=== PATIENT | female | born 1955 | race Hispanic/Latino ===

== ENCOUNTER 2017-05-27 15:54 | Inpatient (IN) | payer BC ==
[2017-05-27] MEDS ORDERED: Sodium Chloride 0.9% 1,000 ML IV STA (16:34)
--- NOTE | 2017-05-27 16:43 | ED PDOC ---
Arrival/HPI - General Chief Complaint: Lower Extremity Problem/Injury Time Seen by Provider: 05/27/17 16:12 Historian: Patient - History of Present Illness Narrative History of Present Illness (Text): 05/27/17 16:40 61 yo female, h/o HTN, presents to the ED c/o weight loss x 1 year. She gets intermittent abdominal pain and diarrhea x 1.5 weaks. She is also getting leg swelling b/l x 10 days. No nausea or vomiting. She is eating less and drinking less fluids. Her PMD Dr. Rosen called stating she has not seen her or gotten blood work in some time. No CP or SOB. No dizziness or lightheadedness. PMD: Dr. Rosen Past Medical History - Provider Review Nursing Documentation Reviewed: Yes - Infectious Disease Hx of Infectious Diseases: None - Cardiac Hx Hypertension: Yes - Endocrine/Metabolic Other/Comment: Low blood sugar - Psychiatric Hx Substance Use: No Family/Social History - Physician Review Nursing Documentation Reviewed: Yes Family/Social History: No Known Family HX Smoking Status: Heavy Smoker > 10 Cigarettes Daily Hx Alcohol Use: Yes Frequency of alcohol use: Daily Hx Substance Use: No Allergies/Home Meds Allergies/Adverse Reactions: Allergies No Known Allergies Allergy (Unverified 05/27/17 16:33) Home Medications: Home Meds Medication Instructions Recorded Confirmed Unobtainable 05/27/17 05/27/17 Review of Systems - Physician Review All systems were reviewed & negative as marked: Yes - Review of Systems Constitutional: Normal Eyes: Normal ENT: Normal Respiratory: Normal. absent: SOB Cardiovascular: Normal. absent: Chest Pain Gastrointestinal: Abdominal Pain, Stool Changes, Diarrhea. absent: Nausea, Vomiting Genitourinary Female: Normal Musculoskeletal: Normal Skin: Normal Neurological: Normal Endocrine: Normal Hemo/Lymphatic: Normal Psychiatric: Normal Physical Exam Vital Signs Reviewed: Yes Vital Signs Temp Pulse Resp BP Pulse Ox 05/27/17 17:59 113 H 16 108/59 L 95 05/27/17 16:26 125 H 18 141/78 97 05/27/17 15:55 98.4 F 120 H 16 141/78 96 Temperature: Afebrile Blood Pressure: Normal Pulse: Tachycardic Respiratory Rate: Normal Appearance: Positive for: Well-Appearing, Non-Toxic, Comfortable Pain Distress: None Mental Status: Positive for: Alert and Oriented X 3 - Systems Exam Head: Present: Atraumatic, Normocephalic, Other Pupils: Present: PERRL Extroacular Muscles: Present: EOMI Conjunctiva: Present: Normal Mouth: Present: Moist Mucous Membranes Pharnyx: Present: Normal Neck: Present: Normal Range of Motion Respiratory/Chest: Present: Clear to Auscultation, Good Air Exchange. No: Respiratory Distress, Accessory Muscle Use Cardiovascular: Present: Regular Rate and Rhythm, Normal S1, S2. No: Murmurs Abdomen: Present: Tenderness, Normal Bowel Sounds, Guarding (+RUQ and epigastric ), Mass/Organomegaly (+enlarged liver). No: Distention, Peritoneal Signs Back: Present: Normal Inspection Upper Extremity: Present: Normal Inspection. No: Cyanosis, Edema Lower Extremity: Present: Normal Inspection, Edema (b/l) Neurological: Present: GCS=15, CN II-XII Intact, Speech Normal, Motor Func Grossly Intact, Normal Sensory Function Skin: Present: Warm, Dry, Normal Color. No: Rashes Psychiatric: Present: Alert, Oriented x 3, Normal Insight, Normal Concentration Medical Decision Making ED Course and Treatment: 05/27/17 16:44 61 yo female with h/o HTN with abdominal pain, weight loss and poor PO intake r/ o dehydration r/o abdominal mass r/o liver disease r/o cholecysititis -- Labs -- CXR, EKG -- Abd/Pelv -- IVF -- Reevaluate and disposition 05/27/17 18:[address] Rosen who states that patient wants Dr. Dawson for Cardiology. Case discussed with Dr. Obando who is covering for Dr. Rashid. He agrees to Heparin. Actual weight takes. CT Head and CT Abd/Pelv pending. Dr. Rosen also wanted LE sonos which he will f/u. Case signed out to Dr. Stanley to f/u CT, reeval and admit. - Critical Care Critical Care Minutes: 30 minutes - Lab Interpretations Lab Results: 05/27/17 16:45 05/27/17 16:45 Lab Results 05/27/17 16:45: Alcohol, Quantitative < 10 05/27/17 16:45: Blood Type Pending, Antibody Screen Pending, BBK History Checked No verified bt 05/27/17 16:45: Sodium 129 L, Potassium 3.1 L, Chloride 98, Carbon Dioxide 25, Anion Gap 9 L, BUN 13, Creatinine 0.8, Est GFR ( Amer) > 60, Est GFR (Non -Af Amer) > 60, Random Glucose 99, Calcium 8.1 L, Magnesium 1.7, Total Bilirubin 0.8, AST 49 H, ALT 33, Alkaline Phosphatase 150 H, Lactate Dehydrogenase 579, Total Creatine Kinase < 20 L, Troponin I < 0.01, NT-Pro-B Natriuret Pep 5990 H, Total Protein 6.3, Albumin 2.4 L, Globulin 3.9, Albumin/ Globulin Ratio 0.6 L, Lipase 46 05/27/17 16:45: PT 12.7 H, INR 1.18 H, APTT 30.4 05/27/17 16:45: WBC 11.9 H, RBC 3.73, Hgb 12.8, Hct 37.1, MCV 99.5, MCH 34.3, MCHC 34.5, RDW 13.4, Plt Count 216, MPV 9.4, Gran % 73.1 H, Lymph % (Auto) 18.1 L, [place] % (Auto) 8.2 H, Eos % (Auto) 0.3 L, Baso % (Auto) 0.3, Gran # 8.72 H, Lymph # 2.2, [place] # 1.0 H, Eos # 0.0, Baso # 0.04 - RAD Interpretation Radiology Orders: 05/27/17 16:34 ABD PELVIS PO & IV CONTRAST [CT] Stat 05/27/17 17:11 CXR [CHEST PORTABLE] [RAD] Stat 05/27/17 17:32 HEAD W/O CONTRAST [CT] Stat 05/27/17 17:33 DUPLEX LOWER EXTRM VEIN BILAT [US] Stat - EKG Interpretation Interpreted by ED Physician: Yes (Rapid afib at 121 bpm with TWI in anterior lateral leads) Type: 12 lead EKG - Medication Orders Current Medication Orders: Sodium Chloride (Sodium Chloride 0.9%) 1,000 mls @ 100 mls/hr IV .Q10H STA Stop: 05/28/17 02:33 Last Admin: 05/27/17 17:18 Dose: 100 mls/hr Discontinued Medications Diltiazem HCl (Cardizem) 20 mg IVP STAT STA Stop: 05/27/17 17:46 Famotidine (Pepcid) 20 mg IVP STAT STA Stop: 05/27/17 16:35 Last Admin: 05/27/17 17:18 Dose: 20 mg Iohexol (Omnipaque 240 (50 Ml)) Confirm Administered Dose 50 ml .ROUTE .STK-MED ONE Stop: 05/27/17 17:11 Potassium Chloride (K-Dur 20 Meq Er Tab) 40 meq PO STAT STA Stop: 05/27/17 17:29 Disposition/Present on Arrival - Present on Arrival Any Indicators Present on Arrival: No History of DVT/PE: No History of Uncontrolled Diabetes: No Urinary Catheter: No History of Decub. Ulcer: No History Surgical Site Infection Following: None - Disposition Have Diagnosis and Disposition been Completed?: Yes Diagnosis: New onset atrial fibrillation, Abdominal pain Disposition: HOSPITALIZED Disposition Time: 18:30 Patient Plan: Admission Condition: FAIR
[2017-05-27 16:58] LABS: BASO # 0.04 K/mm3 (0.0-2.0); BASO % 0.3 % (0.0-3.0); EOS % 0.3 % (1.5-5.0); GRAN # 8.72 (1.4-6.5); GRAN % 73.1 % (50.0-68.0); HEMOGLOBIN 12.8 gm/dL (12.0-16.0); LYMPH # 2.2 (1.2-3.4); LYMPH % 18.1 % (22.0-35.0); MEAN CELL VOLUME 99.5 fL (80.0-105.0); MEAN CORPUSCULAR HEMOGLOBIN 34.3 pg (25.0-35.0); MEAN CORPUSCULAR HGB CONC 34.5 g/dl (31.0-37.0); MEAN PLATELET VOLUME 9.4 fl (7.0-11.0); MONO % 8.2 % (1.0-6.0); PLATELET COUNT 216 10^3/uL (120.0-450.0); RBC 3.73 10^6/uL (3.5-6.1); RED CELL DISTRIBUTION WIDTH 13.4 % (11.5-14.5); WHITE BLOOD COUNT 11.9 10^3/ul (4.5-11.0)
[2017-05-27 17:09] LABS: INR 1.18 (0.93-1.08); PARTIAL THROMBOPLASTIN TIME 30.4 Seconds (23.7-30.8); PROTHROMBIN TIME 12.7 Seconds (9.9-11.8)
[2017-05-27] MEDS ORDERED: Iohexol 240 (50 ml) ONE (17:10)
[2017-05-27 17:11] LABS: ALB/GLOB RATIO 0.6 (1.1-1.8); ALBUMIN 2.4 g/dL (3.0-4.8); ALT/SGPT 33 U/L (7-56); AST/SGOT 49 U/L (15-39); BLOOD UREA NITROGEN 13 mg/dL (7-21); CALCIUM 8.1 mg/dL (8.4-10.5); GFR AFRICAN-AMERICAN > 60; GFR NON-AFRICAN AMERICAN > 60; LIPASE 46 U/L (23-300); MAGNESIUM 1.7 mg/dL (1.7-2.2)
[2017-05-27 17:22] LABS: B-TYPE NATRIURETIC PEPTIDE 5990 pg/mL (0-450)
[2017-05-27 17:27] LABS: TROPONIN I < 0.01 ng/mL
[2017-05-27] MEDS ORDERED: Potassium Chloride 20 mEq ER Tab PO STA (17:28)
[2017-05-27] MEDS ORDERED: Iohexol 350 MG/100 ML VIAL ONE (18:41)
--- NOTE | 2017-05-27 20:37 | US ---
HISTORY: Leg pain and swelling. Evaluate for DVT PHYSICIAN(S): Elton Ludwig MD. TECHNIQUE: Duplex sonography and color-flow Doppler with graded compression were used to evaluate the deep venous systems of both lower extremities. The exam is somewhat limited by edema. FINDINGS: The visualized deep venous systems of both lower extremities are sonographically normal and compressible. Normal wave forms and augmentation are seen. There is no sonographic evidence for deep venous thrombosis in the visualized segments of both lower extremities. IMPRESSION: No sonographic evidence for deep venous thrombosis in the visualized segments of both lower extremities.
[2017-05-27 20:40] LABS: T3 UPTAKE 49.3 % (23.0-41.0); T4 7.8 ug/dL (5.5-11.0)
--- NOTE | 2017-05-27 21:28 | CT ---
EXAM: CT Head Without Intravenous Contrast CLINICAL HISTORY: 61 years old, female; Signs and symptoms; Altered mental status/memory loss; Confusion or disorientation; Additional info: Confused R/O ich TECHNIQUE: Axial computed tomography images of the head/brain without intravenous contrast. This CT exam was performed using one or more of the following dose reduction techniques: automated exposure control, adjustment of the mA and/or kV according to patient size, and/or use of iterative reconstruction technique. EXAM DATE/TIME: 05/27/2017 5:32 PM COMPARISON: There are no prior studies for comparison. FINDINGS: Brain: There is prominence of sulci gyri and ventricles. There is no midline shift. There are are no focal masses. There are no focal hemorrhages. Mc-white differentiation is visualized. Ventricles: See above. Bones: Cranial vault is intact. 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 Soft tissues: unremarkable Sinuses: There is no acute sinusitis. Ears and mastoids: Middle ears and mastoids are unremarkable. Orbits: Orbital contents are unremarkable. IMPRESSION: Mild atrophy no acute intracranial abnormality
[2017-05-27] MEDS: Heparin25000 units/250ml 1/2NS 25,000 UNITS/250 ML BAG IV PRN (22:31)
[2017-05-28 00:39] VITALS: BMI 25.2
[2017-05-28 01:34] LABS: TROPONIN I < 0.01 ng/mL
[2017-05-28 05:55] LABS: BLOOD UREA NITROGEN 12 mg/dL (7-21); CALCIUM 7.8 mg/dL (8.4-10.5); GFR AFRICAN-AMERICAN > 60; GFR NON-AFRICAN AMERICAN > 60; HDL CHOLESTEROL 22 mg/dL (29-60); LDL CHOLESTEROL 58 mg/dL (0-129)
[2017-05-28 06:16] LABS: TROPONIN I < 0.01 ng/mL
--- NOTE | 2017-05-28 08:20 | RAD ---
HISTORY: Abdominal pain COMPARISON: No prior. FINDINGS: LUNGS: The lungs are clear. PLEURA: No significant pleural effusion identified, no pneumothorax apparent. CARDIOVASCULAR: Normal. OSSEOUS STRUCTURES: No significant abnormalities. VISUALIZED UPPER ABDOMEN: Normal. OTHER FINDINGS: None. IMPRESSION: No active pulmonary disease.
--- NOTE | 2017-05-28 09:58 | CARD ---
APPROVED REPORT EKG Measurement Heart [id number] <Conclusion> Atrial fibrillation with rapid ventricular response ST & T wave abnormality, consider inferior ischemia or digitalis effect ST & T wave abnormality, consider anterolateral ischemia or digitalis effect Abnormal ECG
--- NOTE | 2017-05-28 10:04 | CT ---
PROCEDURE: CT Abdomen and Pelvis with contrast HISTORY: abd pain r/o cholecystitis r/o obstruction COMPARISON: None. TECHNIQUE: Contrast dose: 100 cc of Omnipaque Radiation dose: Total exam DLP = 596 mGy-cm. This CT exam was performed using one or more of the following dose reduction techniques: Automated exposure control, adjustment of the mA and/or kV according to patient size, and/or use of iterative reconstruction technique. FINDINGS: LOWER THORAX: Unremarkable. LIVER: There is fatty infiltration of the liver. GALLBLADDER AND BILE DUCTS: Mild to moderate distention PANCREAS: Unremarkable. No gross lesion or ductal dilatation. SPLEEN: Unremarkable. ADRENALS: Unremarkable. No mass. KIDNEYS AND URETERS: Nonobstructing right renal stone VASCULATURE: Unremarkable. No aortic aneurysm. BOWEL: Unremarkable. No obstruction. No gross mural thickening. APPENDIX: Normal appendix. PERITONEUM: Mild ascites suspicious for metastatic disease LYMPH NODES: Unremarkable. No enlarged lymph nodes. BLADDER: Unremarkable. REPRODUCTIVE: There is a large heterogeneous solid mass in the right adnexa measuring 12.7 x 15.8 x 9.5 cm consistent with ovarian malignancy. BONES: No acute fracture. OTHER FINDINGS: The report concurs with the preliminary [facility] report IMPRESSION: Large solid mass in the right adnexa consistent with ovarian malignancy. There is also ascites which is suspicious for peritoneal metastases. See comments
[2017-05-28 10:23] LABS: BASO # 0.04 K/mm3 (0.0-2.0); BASO % 0.4 % (0.0-3.0); EOS % 0.2 % (1.5-5.0); GRAN # 7.05 (1.4-6.5); GRAN % 71.1 % (50.0-68.0); HEMOGLOBIN 11.5 gm/dL (12.0-16.0); LYMPH % 20.5 % (22.0-35.0); MEAN CELL VOLUME 101.2 fL (80.0-105.0); MEAN CORPUSCULAR HEMOGLOBIN 34.3 pg (25.0-35.0); MEAN CORPUSCULAR HGB CONC 33.9 g/dl (31.0-37.0); MEAN PLATELET VOLUME 9.9 fl (7.0-11.0); MONO # 0.8 (0.1-0.6); MONO % 7.8 % (1.0-6.0); PLATELET COUNT 181 10^3/uL (120.0-450.0); RBC 3.35 10^6/uL (3.5-6.1); RED CELL DISTRIBUTION WIDTH 13.8 % (11.5-14.5); WHITE BLOOD COUNT 9.9 10^3/ul (4.5-11.0)
--- NOTE | 2017-05-28 10:27 | CP.PCM.PN ---
Subjective - Date & Time of Evaluation Date of Evaluation: 05/28/17 Time of Evaluation: 07:00 - Subjective Subjective: Consultation: Note: The dictation system is down. 61 F with weight loss, diarrhea and failing health and AMS, admitted via the ER yesterday with AF, RVR and ovarian mass on CT. Now in bed on 2R. No CP or SOB. CC incontinence No orthop, PND, syncope, palpitations, dizziness, cough, sputum, hemoptysis. PMH: HBP, Smoker, Daily ETOH, No recent medical F/U. Time of onset of AF is not known. Meds: unknown. ?None All: NKMA SH: . Lives with daughter. + Tobacco and daily wine. FH: not obtainable 10 point ROS otherwise unremarkable PE: V/S noted. AF at ~ 100. Afebrile. 114/70 18 95-98% on RA/N/C Lungs: clear Cor.: irreg, S1S2 Abd.: soft Ext.: no edema Neuro.: alert Psych: Nl mood and affect Skin: warm and dry I/O= 970/500 Labs: WBC= 12,800, H/H = 12.8/37.1, Pl = [id number], trops neg x 3, BNP= 5990, TSH NL. ECG: AF w RVR, STTW changes CXR: NAD CT Head: mild atrophy CT A+P: see ER note: Ovar. mass with mets and ascites, etc. Objective - Vital Signs/Intake and Output Vital Signs (last 24 hours): Temp Pulse Resp BP Pulse Ox 97.5 F L 115 H 20 114/70 98 05/28/17 06:00 05/28/17 06:00 05/28/17 06:00 05/28/17 06:00 05/28/17 06:00 Intake and Output: 05/28/17 05/28/17 06:59 18:59 Intake Total 970 Output Total 500 Balance 470 - Medications Medications: Current Medications Heparin Sodium/Sodium Chloride (Heparin 63165 Units/250ml 1/2 Normal Saline) 25 ,000 units in 250 mls @ 11.333 mls/hr IV .Q22H4M PRN; Protocol; 18 UNITS/KG/HR PRN Reason: ADJUST RATE PER PROTOCOL Last Titration: 05/28/17 05:41 Dose: 15 units/kg/hr, 9.444 mls/hr - Labs Labs: 05/28/17 05:04 PT 12.7 Seconds (9.9-11.8) H 05/27/17 16:45 INR 1.18 (0.93-1.08) H 05/27/17 16:45 APTT 53.1 Seconds (23.7-30.8) H 05/28/17 08:00 Assessment and Plan - Assessment and Plan (Free Text) Assessment: Weight loss/ diarrhea AMS AF with RVR, ? duration Ovarian mass with mets and ascites on CT HBP Smoker Daily ETOH Usage Plan: Tel. Heparin drip by PTTs Metoprolol 25 BID and titrate as needed. 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 Evals. Monitor tel, I/O, labs, PTT's, etc. Will follow.
--- NOTE | 2017-05-28 14:42 | CP.PCM.CON ---
History of Present Illness - History of Present Illness History of Present Illness: Seen and examined earlier today. Chart reviewed. Request for consult is for Ascites HPI: 61 y.o female with history of HTN, Chronic Alcohol intake comes to the ER with compliant of weight loss for over 1 year about 60 pounds, abdominal pain and diarrhea. Came with altered mental status, head ct was negative for bleed and infarct. Patient not cooperative during history taking. Patient denies SOB, CP, N/V. Denies melena or BRBPR. Head Cager hemoptysis and hematemesis. Never had EGD/ Colon. As per patient did not notice her abdomen becoming distended.Denies abdominal pain, or reflux symptoms. Patient had ct scan of abdomen and pelvis reporting large solid mass right adnexa consitnet with ovarian malignancy and ascites. Patient also found to be in Atrial Fibrillation and now on heparin drip per protocol. Ext . doppler done on LE and negative. PMH: HTN, chronic alcohol use PSH: Social hx: (+) smoking, (+) ETOH, denies drugs Allergies: NKDA MEDS: reviewed as per MAR ROS: systems reviewed with positive findings, see hPI Past Patient History - Infectious Disease Hx of Infectious Diseases: None - Past Social History Smoking Status: Light Smoker < 10 Cigarettes Daily - CARDIAC Hx Cardia Arrhythmia: Yes (new onset afib) Hx Hypercholesterolemia: Yes Hx Hypertension: Yes - PULMONARY Hx Respiratory Disorders: No - NEUROLOGICAL Hx Alzheimer's Disease: Yes (early stages) - HEENT Hx HEENT Problems: No - RENAL Hx Chronic Kidney Disease: No - ENDOCRINE/METABOLIC Hx Endocrine Disorders: No Other/Comment: Low blood sugar - HEMATOLOGICAL/ONCOLOGICAL Hx Blood Disorders: No - INTEGUMENTARY Hx Dermatological Problems: No - MUSCULOSKELETAL/RHEUMATOLOGICAL Hx Falls: No Hx Unsteady Gait: Yes (uses cane at home) - GASTROINTESTINAL Other/Comment: diarrhea - GENITOURINARY/GYNECOLOGICAL Hx Genitourinary Disorders: No - PSYCHIATRIC Hx Depression: Yes Hx Substance Use: No Meds Allergies/Adverse Reactions: Allergies Allergy/AdvReac Type Severity Reaction Status Date / Time No Known Allergies Allergy Unverified 05/27/17 16:33 - Medications Medications: Current Medications Heparin Sodium/Sodium Chloride (Heparin 17484 Units/250ml 1/2 Normal Saline) 25 ,000 units in 250 mls @ 11.333 mls/hr IV .Q22H4M PRN; Protocol; 18 UNITS/KG/HR PRN Reason: ADJUST RATE PER PROTOCOL Last Titration: 05/28/17 05:41 Dose: 15 units/kg/hr, 9.444 mls/hr Metoprolol Tartrate (Lopressor) 25 mg PO BID ALF Last Admin: 05/28/17 11:17 Dose: 25 mg Physical Exam - Constitutional Appears: No Acute Distress - Head Exam Head Exam: NORMAL INSPECTION - Eye Exam Eye Exam: Normal appearance, PERRL. absent: Scleral icterus - ENT Exam ENT Exam: Mucous Membranes Moist - Neck Exam Neck exam: Positive for: Normal Inspection - Respiratory Exam Respiratory Exam: Decreased Breath Sounds, Clear to Auscultation Bilateral, NORMAL BREATHING PATTERN. absent: Respiratory Distress - Cardiovascular Exam Cardiovascular Exam: Irregular Rhythm, +S1, +S2 - GI/Abdominal Exam GI & Abdominal Exam: Distended, Normal Bowel Sounds, Soft. absent: Guarding, Organomegaly, Rebound, Tenderness Additional comments: (+) ascites - Extremities Exam Extremities exam: Positive for: pedal edema, pedal pulses present. Negative for : calf tenderness - Neurological Exam Neurological exam: Alert, Oriented x3 - Skin Skin Exam: Dry, Warm Results - Vital Signs Recent Vital Signs: Last Vital Signs Temp 98.7 F 05/28/17 12:00 Pulse 83 05/28/17 12:00 Resp 20 05/28/17 12:00 BP 102/41 L 05/28/17 12:00 Pulse Ox 98 05/28/17 06:00 - Labs Result Diagrams: 05/28/17 08:00 05/28/17 05:04 Labs: Laboratory Results - last 24 hr 05/27/17 05/28/17 05/28/17 20:01 00:57 05:04 WBC RBC Hgb Hct MCV MCH MCHC RDW Plt Count MPV Gran % Lymph % (Auto) [place] % (Auto) Eos % (Auto) Baso % (Auto) Gran # Lymph # [place] # Eos # Baso # APTT Sodium 132 Potassium 3.8 Chloride 101 Carbon Dioxide 27 Anion Gap 8 L BUN 12 Creatinine 0.7 Est GFR ( Amer) > 60 Est GFR (Non-Af Amer) > 60 Random Glucose 76 Calcium 7.8 L Lactate Dehydrogenase 526 518 Total Creatine Kinase < 20 L < 20 L Troponin I < 0.01 < 0.01 Triglycerides 83 Cholesterol 96 L LDL Cholesterol Direct 58 HDL Cholesterol 22 L Thyroxine (T4) 7.8 T3 Uptake 49.3 H TSH 3rd Generation 2.62 05/28/17 05/28/17 05/28/17 05:04 08:00 08:00 WBC 9.9 RBC 3.35 L Hgb 11.5 L Hct 33.9 L MCV 101.2 MCH 34.3 MCHC 33.9 RDW 13.8 Plt Count 181 MPV 9.9 Gran % 71.1 H Lymph % (Auto) 20.5 L [place] % (Auto) 7.8 H Eos % (Auto) 0.2 L Baso % (Auto) 0.4 Gran # 7.05 H Lymph # 2.0 [place] # 0.8 H Eos # 0.0 Baso # 0.04 APTT 135.8 H* 53.1 H Sodium Potassium Chloride Carbon Dioxide Anion Gap BUN Creatinine Est GFR ( Amer) Est GFR (Non-Af Amer) Random Glucose Calcium Lactate Dehydrogenase Total Creatine Kinase Troponin I Triglycerides Cholesterol LDL Cholesterol Direct HDL Cholesterol Thyroxine (T4) T3 Uptake TSH 3rd Generation Assessment & Plan - Assessment and Plan (Free Text) Assessment: ASSESSMENT: Abnormal ct scan: large sold mass right adnexa, ? Ovarian mass Ascites malignant VS Cirrhosis Chronic ETOH Weight loss Atrial Fibrillation HTN PLAN: Request eval for paracentesis with cytology labs on Heparin drip per protocol continue GI prophylaxsis [facility] eval monitor H/H may benefit from GI workup when optimal Thank you for this consult and for allowing us to participate in your patient care, will make further recommendation based upon clinical course. Seen and discussed with Dr. Argueta.
--- NOTE | 2017-05-28 17:32 | CP.PCM.CON ---
History of Present Illness - History of Present Illness History of Present Illness: NEURO CONSULT NOTE: 05/28/17 CHIEF COMPLAINT: NEW ONSET CONFUSION HPI: 61 YEAR OLD WOMAN WITH PMH OF HTN, ALCOHOL ABUSE, AND WEIGHT LOSS OF 60 LBS IN 1 YEAR, WITH H/O OF RECENT DIARRHEA AND ABDOMINAL PAIN AND WAS FOUND TO HAVE NEW ONSET CONFUSION, WITH NEW ONSET A-FIB WITH RVR ON HEPARIN PER CARDIAC PROTOCOL. PT CT HEAD SHOWED MILD ATROPHY AND NO ACUTE INTRACRANIAL ABNORMALITY. PT INITIALLY HAD HYPONATREMIA, HYPOKALEMIA WHICH IS BEING CORRECTED. PT MOVES ALL EXTREMITIES AND FOLLOWS SIMPLE COMMANDS. CEA IS ELEVATED AT 11.1. GI ONBOARD FOR EVALUATION OF ASCITES. ROS: 14 POINT REVIEW OF SYMPTOMS IS NEGATIVE PER HPI. ALLERGIES: NONE SOCIAL HISTORY: NO ILLICIT DRUG USE, POSITIVE SMOKING, DAILY ETOH USE. FAMILY: NON CONTRIBUTORY. MEDICATIONS: REVIEWED BY NURSE'S RECONCILIATION SHEET. PAST MEDICAL HISTORY:HTN, ALCOHOL ABUSE PHYSICAL EXAM: VITAL SIGNS: REVIEWED BY THE CHART GENERAL EXAM: PATIENT SEEN IN BED, IN NO ACUTE DISTRESS MORBIDLY OBESE. HEENT: PERRLA, EOMI, NECK SUPPLE, NO JVD, NO ADENOPATHY CVS: S1, S2, RRR, NO MURMURS NOTED LUNGS: CLEAR TO AUSCULTATION, NO ADVENTITIOUS SOUNDS ABDOMEN: DISTENDED, BS PRESENT. EXTREMITIES: NO CLUBBING OR CYANOSIS. PP 2+ B/L HAS B/L PEDAL EDEMA NEURO: PT IS ALERT AND ORIENTED TO PERSON, PLACE, AND YEAR. POOR ATTENTION SPAN , SLOW THOUGHT PROCESS, RECALL TO 5 MINUTES 0/3, SPEECH IS FLUENT WITHOUT ERRORS, CN II-XII INTACT, MOTOR EXAM: NORMAL TONE, NORMAL BULK OF MUSCLE, MOVES ALL EXTREMITIES EQUALLY, NO PRONATOR DRIFT SEEN. SENSORY EXAM: DECREASEDLIGHT TOUCH, PIN PRICK UP TO CALVES B/L, PROPRIOCEPTION , DECREASED VIBRATION AT TOES AND KNEES. DEEP TENDON REFLEXES: 2+ THROUGHOUT EXCEPT 1 AT THE ANKLES. COORDINATION: FINGER TO NOSE IS INTACT. HEEL TO RAY IS INTACT GAIT: DEFERRED FOR NOW. LABS: REVIEWED BY THE CHART. ASSESSMENT AND PLAN: 61 YEAR OLD WOMAN WITH PMH OF HTN, ALCOHOL ABUSE, AND WEIGHT LOSS OF 60 LBS IN 1 YEAR, WITH H/O OF RECENT DIARRHEA AND ABDOMINAL PAIN AND WAS FOUND TO HAVE NEW ONSET CONFUSION, WITH NEW ONSET A-FIB WITH RVR ON HEPARIN PER CARDIAC PROTOCOL. PT CT HEAD SHOWED MILD ATROPHY AND NO ACUTE INTRACRANIAL ABNORMALITY. PT INITIALLY HAD HYPONATREMIA, HYPOKALEMIA WHICH IS BEING CORRECTED. PT MOVES ALL EXTREMITIES AND FOLLOWS SIMPLE COMMANDS. CEA IS ELEVATED AT 11.1. GI ONBOARD FOR EVALUATION OF ASCITES. NEW ONSET CONFUSION LIKELY SECONMDARY TO TRANSIENT CONFUSIONAL STATE FROM UNDERLYING INITIAL ELECTROLYTE DERANGEMENTS, TRANSIENT HYPOPERFUSION TO THE BRAIN, AND A-FIB RVR. PLAN: 1.ASA 81 MG FOR STROKE PREVENTION 2. MONITOR ELECTROLYTES AND CORRECT ACCORDINGLY. 3. MRI OF BRAIN TO ASSESS FOR ANY INTRACRANIAL ABNORMALITIES GIVEN OVARIAN MASS 4. AVOID SEDATING MEDICATIONS.\ 5. DELIRIUM PRECAUTIONS. 6. GENTLE HYDRATION. 7. FOLLOW UP WITH GI FOR ASCITES AND ONCOLOGY FOR OVARIAN MASS. 8. F/U WITH CARDIOLOGY RECOMMENDATION FOR A-FIB. THANK YOU Ilya OLVERA MD Past Patient History - Infectious Disease Hx of Infectious Diseases: None - Past Social History Smoking Status: Light Smoker < 10 Cigarettes Daily - CARDIAC Hx Cardia Arrhythmia: Yes (new onset afib) Hx Hypercholesterolemia: Yes Hx Hypertension: Yes - PULMONARY Hx Respiratory Disorders: No - NEUROLOGICAL Hx Alzheimer's Disease: Yes (early stages) - HEENT Hx HEENT Problems: No - RENAL Hx Chronic Kidney Disease: No - ENDOCRINE/METABOLIC Hx Endocrine Disorders: No Other/Comment: Low blood sugar - HEMATOLOGICAL/ONCOLOGICAL Hx Blood Disorders: No - INTEGUMENTARY Hx Dermatological Problems: No - MUSCULOSKELETAL/RHEUMATOLOGICAL Hx Falls: No Hx Unsteady Gait: Yes (uses cane at home) - GASTROINTESTINAL Other/Comment: diarrhea - GENITOURINARY/GYNECOLOGICAL Hx Genitourinary Disorders: No - PSYCHIATRIC Hx Depression: Yes Hx Substance Use: No Meds Allergies/Adverse Reactions: Allergies Allergy/AdvReac Type Severity Reaction Status Date / Time No Known Allergies Allergy Unverified 05/27/17 16:33 - Medications Medications: Current Medications Famotidine (Pepcid) 20 mg PO 1000,2200 [facility] Heparin Sodium/Sodium Chloride (Heparin 92389 Units/250ml 1/2 Normal Saline) 25 ,000 units in 250 mls @ 11.333 mls/hr IV .Q22H4M PRN; Protocol; 18 UNITS/KG/HR PRN Reason: ADJUST RATE PER PROTOCOL Last Titration: 05/28/17 05:41 Dose: 15 units/kg/hr, 9.444 mls/hr Metoprolol Tartrate (Lopressor) 25 mg PO BID COUNT INCLUDES THE [facility] Last Admin: 05/28/17 11:17 Dose: 25 mg Results - Vital Signs Recent Vital Signs: Last Vital Signs Temp 98.7 F 05/28/17 12:00 Pulse 93 H 05/28/17 14:00 Resp 20 05/28/17 12:00 BP 102/41 L 05/28/17 12:00 Pulse Ox 98 05/28/17 06:00 - Labs Result Diagrams: 05/28/17 08:00 05/28/17 05:04 Labs: Laboratory Results - last 24 hr 05/27/17 05/28/17 05/28/17 20:01 00:57 05:04 WBC RBC Hgb Hct MCV MCH MCHC RDW Plt Count MPV Gran % Lymph % (Auto) Chaves % (Auto) Eos % (Auto) Baso % (Auto) Gran # Lymph # Chaves # Eos # Baso # APTT Sodium 132 Potassium 3.8 Chloride 101 Carbon Dioxide 27 Anion Gap 8 L BUN 12 Creatinine 0.7 Est GFR ( Amer) > 60 Est GFR (Non-Af Amer) > 60 Random Glucose 76 Calcium 7.8 L Lactate Dehydrogenase 526 518 Total Creatine Kinase < 20 L < 20 L Troponin I < 0.01 < 0.01 Triglycerides 83 Cholesterol 96 L LDL Cholesterol Direct 58 HDL Cholesterol 22 L Carcinoembryonic Ag Thyroxine (T4) 7.8 T3 Uptake 49.3 H TSH 3rd Generation 2.62 05/28/17 05/28/17 05/28/17 05:04 08:00 08:00 WBC 9.9 RBC 3.35 L Hgb 11.5 L Hct 33.9 L MCV 101.2 MCH 34.3 MCHC 33.9 RDW 13.8 Plt Count 181 MPV 9.9 Gran % 71.1 H Lymph % (Auto) 20.5 L Chaves % (Auto) 7.8 H Eos % (Auto) 0.2 L Baso % (Auto) 0.4 Gran # 7.05 H Lymph # 2.0 Chaves # 0.8 H Eos # 0.0 Baso # 0.04 APTT 135.8 H* 53.1 H Sodium Potassium Chloride Carbon Dioxide Anion Gap BUN Creatinine Est GFR ( Amer) Est GFR (Non-Af Amer) Random Glucose Calcium Lactate Dehydrogenase Total Creatine Kinase Troponin I Triglycerides Cholesterol LDL Cholesterol Direct HDL Cholesterol Carcinoembryonic Ag Thyroxine (T4) T3 Uptake TSH 3rd Generation 05/28/17 05/28/17 15:45 15:45 WBC RBC Hgb Hct MCV MCH MCHC RDW Plt Count MPV Gran % Lymph % (Auto) Chaves % (Auto) Eos % (Auto) Baso % (Auto) Gran # Lymph # Chaves # Eos # Baso # APTT 54.8 H Sodium Potassium Chloride Carbon Dioxide Anion Gap BUN Creatinine Est GFR ( Amer) Est GFR (Non-Af Amer) Random Glucose Calcium Lactate Dehydrogenase Total Creatine Kinase Troponin I Triglycerides Cholesterol LDL Cholesterol Direct HDL Cholesterol Carcinoembryonic Ag 11.1 H Thyroxine (T4) T3 Uptake TSH 3rd Generation
[2017-05-29] MEDS: Heparin25000 units/250ml 1/2NS 25,000 UNITS/250 ML BAG IV PRN (04:54)
[2017-05-29 07:07] LABS: HEMOGLOBIN 12.5 gm/dL (12.0-16.0); MEAN CELL VOLUME 99.2 fL (80.0-105.0); MEAN CORPUSCULAR HEMOGLOBIN 33.6 pg (25.0-35.0); MEAN CORPUSCULAR HGB CONC 33.9 g/dl (31.0-37.0); MEAN PLATELET VOLUME 9.6 fl (7.0-11.0); RBC 3.72 10^6/uL (3.5-6.1); RED CELL DISTRIBUTION WIDTH 13.6 % (11.5-14.5); WHITE BLOOD COUNT 11.4 10^3/ul (4.5-11.0)
--- NOTE | 2017-05-29 07:57 | CARD ---
APPROVED REPORT EXAM: Two-dimensional and M-mode echocardiogram with Doppler and color Doppler. INDICATION Atrial Fibrillation 2D DIMENSIONS Left Atrium (2D)4.7 (1.6-4.0cm)IVSd1.1 (0.7-1.1cm) LVDd4.5 (3.9-5.9cm)PWd1.1 (0.7-1.1cm) LVDs2.9 (2.5-4.0cm)FS (%) 34.7 % LVEF (%)64.1 (>50%) M-Mode DIMENSIONS Aortic Root2.70 (2.2-3.7cm)Aortic Cusp Exc.1.70 (1.5-2.0cm) Aortic Valve AoV Peak Irpryvcv226.0cm/Tom Peak GR.8mmHg Mitral Valve E/A ratio0.0 TDI E/Lateral E'0.0E/Medial E'0.0 Tricuspid Valve TR Peak [id number] [id number] Peak Gr.24mmHg [id number] LEFT VENTRICLE The left ventricle is normal size. There is normal left ventricular wall thickness. The left ventricular function is normal. The left ventricular ejection fraction is within the normal range. There is normal LV segmental wall motion. RIGHT VENTRICLE The right ventricle is normal size. The right ventricular systolic function is normal. ATRIA The left atrium is moderately dilated. The right atrium is mildly dilated. The interatrial septum is intact with no evidence for an atrial septal defect. AORTIC VALVE The aortic valve is moderately sclerotic. No aortic regurgitation is present. There is no aortic valvular stenosis. MITRAL VALVE Mitral annular calcification is mild. Mitral regurgitation is mild. TRICUSPID VALVE The tricuspid valve is normal in structure. There is mild tricuspid regurgitation. PULMONIC VALVE The pulmonary valve is normal in structure. GREAT VESSELS The aortic root is normal in size. The IVC is normal in size and collapses >50% with inspiration. PERICARDIAL EFFUSION There is no pleural effusion. There is no pericardial effusion. <Conclusion> Biatrial enlargement. Normal LV size and systolic function. Mild MR. Mild TR.
--- NOTE | 2017-05-29 09:30 | CP.PCM.PN ---
Subjective - Date & Time of Evaluation Date of Evaluation: 05/29/17 Time of Evaluation: 07:50 - Subjective Subjective: S&E at bedside this am, no acute overnight events reported. Was incontinent of stool last night, no reports of overt GI bleed. Remains on heparin drip. Objective - Vital Signs/Intake and Output Vital Signs (last 24 hours): Temp Pulse Resp BP Pulse Ox 98 F 98 H 20 120/80 98 05/29/17 06:00 05/29/17 06:00 05/29/17 06:00 05/29/17 06:00 05/29/17 06:00 Intake and Output: 05/29/17 05/29/17 06:59 18:59 Intake Total 430 60 Balance 430 60 - Medications Medications: Current Medications Famotidine (Pepcid) 20 mg PO 1000,2200 ON LICENSE OF [facility] Last Admin: 05/29/17 09:11 Dose: 20 mg Heparin Sodium/Sodium Chloride (Heparin 47786 Units/250ml 1/2 Normal Saline) 25 ,000 units in 250 mls @ 11.333 mls/hr IV .Q22H4M PRN; Protocol; 18 UNITS/KG/HR PRN Reason: ADJUST RATE PER PROTOCOL Last Titration: 05/29/17 07:49 Dose: 13 units/kg/hr, 8.185 mls/hr Metoprolol Tartrate (Lopressor) 25 mg PO BID ON LICENSE OF [facility] Last Admin: 05/29/17 09:11 Dose: 25 mg - Labs Labs: 05/29/17 06:30 05/28/17 05:04 PT 12.7 Seconds (9.9-11.8) H 05/27/17 16:45 INR 1.18 (0.93-1.08) H 05/27/17 16:45 APTT 83.5 Seconds (23.7-30.8) H* 05/29/17 06:30 - Constitutional Appears: No Acute Distress - Eye Exam Eye Exam: Normal appearance. absent: Scleral icterus - ENT Exam ENT Exam: Mucous Membranes Moist - Neck Exam Neck Exam: Normal Inspection - Respiratory Exam Respiratory Exam: Decreased Breath Sounds (no wheeze), Rhonchi, NORMAL BREATHING PATTERN. absent: Respiratory Distress - Cardiovascular Exam Cardiovascular Exam: Irregular Rhythm, +S1, +S2 - GI/Abdominal Exam GI & Abdominal Exam: Distended, Soft, Normal Bowel Sounds. absent: Guarding, Tenderness, Rebound - Extremities Exam Extremities Exam: Pedal Edema (bilateral LE). absent: Calf Tenderness - Neurological Exam Neurological Exam: Alert, Awake, Oriented x3 - Skin Skin Exam: Dry, Warm Assessment and Plan - Assessment and Plan (Free Text) Assessment: ASSESSMENT: Abnormal ct scan: large sold mass right adnexa, ? Ovarian mass Ascites malignant VS Cirrhosis AMS Chronic ETOH Weight loss Atrial Fibrillation HTN PLAN: on Heparin drip per protocol continue GI prophylaxsis BALL ENDER eval, oncology FU monitor H/H pending MRI brain may benefit from GI workup when optimal, r/o varices discuss with Dr. Rosen regarding eval for paracentesis, will hold off for now, will undergo behavioral health associate/oncology eval. Seen and discussed with Dr. Argueta.
--- NOTE | 2017-05-29 10:13 | CARD ---
APPROVED REPORT EKG Measurement Heart [id number] <Conclusion> Atrial fibrillation with rapid ventricular response Low voltage QRS ST & T wave abnormality, consider anterolateral ischemia or digitalis effect Abnormal ECG
--- NOTE | 2017-05-29 11:28 | CP.PCM.PN ---
Subjective - Date & Time of Evaluation Date of Evaluation: 05/29/17 Time of Evaluation: 09:05 - Subjective Subjective: Seen for followup. Lying in bed on telemetry. Heart rate remains moderately increased. Echocardiogram revealed normal LV size and systolic function with biatrial enlargement. Mild mitral and tricuspid regurgitation were seen. Awaits gynecologic evaluation. Objective - Vital Signs/Intake and Output Vital Signs (last 24 hours): Temp Pulse Resp BP Pulse Ox 98 F 98 H 20 120/80 98 05/29/17 06:00 05/29/17 06:00 05/29/17 06:00 05/29/17 06:00 05/29/17 06:00 Intake and Output: 05/29/17 05/29/17 06:59 18:59 Intake Total 430 60 Balance 430 60 - Medications Medications: Current Medications Famotidine (Pepcid) 20 mg PO 1000,2200 [facility] Last Admin: 05/29/17 09:11 Dose: 20 mg Heparin Sodium/Sodium Chloride (Heparin 75965 Units/250ml 1/2 Normal Saline) 25 ,000 units in 250 mls @ 11.333 mls/hr IV .Q22H4M PRN; Protocol; 18 UNITS/KG/HR PRN Reason: ADJUST RATE PER PROTOCOL Last Titration: 05/29/17 07:49 Dose: 13 units/kg/hr, 8.185 mls/hr Metoprolol Tartrate (Lopressor) 25 mg PO BID [facility] Last Admin: 05/29/17 09:11 Dose: 25 mg - Labs Labs: 05/29/17 06:30 05/28/17 05:04 PT 12.7 Seconds (9.9-11.8) H 05/27/17 16:45 INR 1.18 (0.93-1.08) H 05/27/17 16:45 APTT 83.5 Seconds (23.7-30.8) H* 05/29/17 06:30 - Constitutional Appears: Chronically Ill - Eye Exam Eye Exam: Normal appearance - Neck Exam Neck Exam: Normal Inspection - Respiratory Exam Respiratory Exam: Rhonchi - Cardiovascular Exam Cardiovascular Exam: Irregular Rhythm Additional comments: Soft systolic murmur present at the left sternal border - GI/Abdominal Exam GI & Abdominal Exam: Distended Additional comments: Bowel sounds present. Hepatosplenomegaly noted - Neurological Exam Neurological Exam: Alert, Oriented x3 - Psychiatric Exam Psychiatric exam: Anxious, Flat Affect Assessment and Plan (1) Cirrhosis Assessment & Plan: Workup in progress. Likely secondary to alcoholic liver disease Status: Acute (2) Ovarian mass, right Assessment & Plan: Highly suspicious for malignancy. Status: Acute (3) New onset atrial fibrillation Assessment & Plan: Inadequate rate control at present. Will increase beta xiao dose. Continue anticoagulation for now. Will need to determine appropriateness of long-term anticoagulation based upon her medical problems. Status: Acute - Assessment and Plan (Free Text) Plan: Increase metoprolol dose. Await gynecologic evaluation and GI input. Continue heparin for now. Will need eventual chronic anticoagulation unless contraindication exists.
--- NOTE | 2017-05-29 17:09 | CP.PCM.PCO ---
Physician Communication Note - Physician Communication Note Physician Communication Note: C/W PRESENT MX. MRI PENDING. RECONSULT IF ABNORMAL
--- NOTE | 2017-05-30 06:08 | CP.PCM.PN ---
Subjective - Date & Time of Evaluation Date of Evaluation: 05/30/17 Time of Evaluation: 06:07 - Subjective Subjective: Patient was seen at bedside. She was asleep, I woke her up. She was seen because her heart rate had been in the 130's. She complained of constipation.When I asked, how many days? She said she did not remember. As per nursing staff, she has had diarrhoea. HR in 130's Discussed with . Placed a call to ,awaiting call back. Objective - Vital Signs/Intake and Output Vital Signs (last 24 hours): Temp Pulse Resp BP Pulse Ox 98.4 F 111 H 18 110/62 95 05/30/17 00:01 05/30/17 04:44 05/30/17 00:01 05/30/17 00:01 05/30/17 00:01 Intake and Output: 05/29/17 05/30/17 18:59 06:59 Intake Total 110 Balance 110 - Medications Medications: Current Medications Famotidine (Pepcid) 20 mg PO 1000,2200 [facility] Last Admin: 05/29/17 22:01 Dose: 20 mg Heparin Sodium/Sodium Chloride (Heparin 47915 Units/250ml 1/2 Normal Saline) 25 ,000 units in 250 mls @ 11.333 mls/hr IV .Q22H4M PRN; Protocol; 18 UNITS/KG/HR PRN Reason: ADJUST RATE PER PROTOCOL Last Titration: 05/29/17 15:02 Dose: 13 units/kg/hr, 8.185 mls/hr Metoprolol Tartrate (Lopressor) 25 mg PO BID [facility] Last Admin: 05/29/17 17:47 Dose: 25 mg - Labs Labs: 05/29/17 06:30 05/28/17 05:04 PT 12.7 Seconds (9.9-11.8) H 05/27/17 16:45 INR 1.18 (0.93-1.08) H 05/27/17 16:45 APTT 62.5 Seconds (23.7-30.8) H 05/29/17 20:01 - Constitutional Appears: Well, No Acute Distress - Head Exam Head Exam: ATRAUMATIC, NORMAL INSPECTION, NORMOCEPHALIC - Eye Exam Eye Exam: Normal appearance - ENT Exam ENT Exam: Normal External Ear Exam - Neck Exam Neck Exam: Normal Inspection - Respiratory Exam Respiratory Exam: Clear to Ausculation Bilateral, NORMAL BREATHING PATTERN. absent: Rales, Rhonchi, Wheezes, Respiratory Distress, Stridor - Cardiovascular Exam Cardiovascular Exam: Tachycardia, Irregular Rhythm. absent: JVD - GI/Abdominal Exam GI & Abdominal Exam: absent: Distended - Rectal Exam Rectal Exam: Deferred - Exam Additional comments: Deferred. - Extremities Exam Extremities Exam: Normal Inspection - Back Exam Back Exam: NORMAL INSPECTION - Neurological Exam Neurological Exam: Alert, Awake - Psychiatric Exam Psychiatric exam: Normal Affect, Normal Mood - Skin Skin Exam: Normal Color Assessment and Plan - Assessment and Plan (Free Text) Assessment: Atrial fibrillation with RVR. HTN. Ovarian mass. AMS. Cirrhosis. Smoker. ETOH user. Plan: Lopressor 25 mg po now instead of at scheduled time later this morning. Spoke with who asked me to call . A call was placed to , later on I spoke to him when he was on the floor. Continue present management.
[2017-05-30 06:11] LABS: BASO # 0.05 K/mm3 (0.0-2.0); BASO % 0.4 % (0.0-3.0); EOS % 0.1 % (1.5-5.0); GRAN % 70.8 % (50.0-68.0); HEMOGLOBIN 12.7 gm/dL (12.0-16.0); LYMPH # 2.5 (1.2-3.4); LYMPH % 20.3 % (22.0-35.0); MEAN CELL VOLUME 99.7 fL (80.0-105.0); MEAN CORPUSCULAR HEMOGLOBIN 34.2 pg (25.0-35.0); MEAN CORPUSCULAR HGB CONC 34.3 g/dl (31.0-37.0); MEAN PLATELET VOLUME 9.8 fl (7.0-11.0); MONO % 8.4 % (1.0-6.0); PLATELET COUNT 198 10^3/uL (120.0-450.0); RBC 3.71 10^6/uL (3.5-6.1); RED CELL DISTRIBUTION WIDTH 13.8 % (11.5-14.5); WHITE BLOOD COUNT 12.4 10^3/ul (4.5-11.0)
[2017-05-30 06:24] LABS: ALB/GLOB RATIO 0.6 (1.1-1.8); ALBUMIN 2.2 g/dL (3.0-4.8); ALT/SGPT 29 U/L (7-56); AST/SGOT 41 U/L (15-39); BLOOD UREA NITROGEN 17 mg/dL (7-21); CALCIUM 8.1 mg/dL (8.4-10.5); GFR AFRICAN-AMERICAN > 60; GFR NON-AFRICAN AMERICAN > 60
--- NOTE | 2017-05-30 09:00 | CP.PCM.PN ---
Subjective - Date & Time of Evaluation Date of Evaluation: 05/30/17 Time of Evaluation: 07:00 - Subjective Subjective: Stable on 2R. AF with rapid VR last night. V/S noted. AF, mod. VR PE: Lungs: clear Cor.: irreg S1S2 Abd.: soft Ext.: no edema' Neuro.: alert Echo: Nl LV, Mild MR and TR Labs noted: PTT= 55 Objective - Vital Signs/Intake and Output Vital Signs (last 24 hours): Temp Pulse Resp BP Pulse Ox 99.2 F 130 H 18 119/75 99 05/30/17 06:00 05/30/17 06:13 05/30/17 06:00 05/30/17 06:13 05/30/17 06:00 Intake and Output: 05/30/17 05/30/17 06:59 18:59 Intake Total 0 Balance 0 - Medications Medications: Current Medications Famotidine (Pepcid) 20 mg PO 1000,2200 [facility] Last Admin: 05/29/17 22:01 Dose: 20 mg Heparin Sodium/Sodium Chloride (Heparin 49710 Units/250ml 1/2 Normal Saline) 25 ,000 units in 250 mls @ 11.333 mls/hr IV .Q22H4M PRN; Protocol; 18 UNITS/KG/HR PRN Reason: ADJUST RATE PER PROTOCOL Last Titration: 05/29/17 15:02 Dose: 13 units/kg/hr, 8.185 mls/hr Metoprolol Tartrate (Lopressor) 50 mg PO BID [facility] - Labs Labs: 05/30/17 05:20 05/30/17 05:20 PT 12.7 Seconds (9.9-11.8) H 05/27/17 16:45 INR 1.18 (0.93-1.08) H 05/27/17 16:45 APTT 55.0 Seconds (23.7-30.8) H 05/30/17 05:20 Assessment and Plan - Assessment and Plan (Free Text) Assessment: Weight loss/ diarrhea AMS AF with RVR, ? duration Ovarian mass with mets and ascites on CT Cirrhosis HBP Smoker Daily ETOH Usage Plan: Tel. Heparin drip by PTTs Increase metoprolol to 50 BID and titrate as needed. BOW REHAIRER/GI/Neuro. Evals. Monitor tel, I/O, labs, PTT's, etc. Will follow.
[2017-05-30] MEDS ORDERED: Gadodiamide 287 MG/ML VIAL (15ML) IV ONE (17:04)
--- NOTE | 2017-05-30 17:45 | CP.PCM.PN ---
Subjective - Date & Time of Evaluation Date of Evaluation: 05/30/17 Time of Evaluation: 16:00 - Subjective Subjective: NEURO PROGRESS NOTE: 05/30/17 CHIEF COMPLAINT: NEW ONSET CONFUSION SUBJECTIVE: 61 YEAR OLD WOMAN WITH PMH OF HTN, ALCOHOL ABUSE, AND WEIGHT LOSS OF 60 LBS IN 1 YEAR, WITH H/O OF RECENT DIARRHEA AND ABDOMINAL PAIN AND WAS FOUND TO HAVE NEW ONSET CONFUSION, WITH NEW ONSET A-FIB WITH RVR ON HEPARIN PER CARDIAC PROTOCOL. PT CT HEAD SHOWED MILD ATROPHY AND NO ACUTE INTRACRANIAL ABNORMALITY. PT INITIALLY HAD HYPONATREMIA, HYPOKALEMIA WHICH IS BEING CORRECTED. PT MOVES ALL EXTREMITIES AND FOLLOWS SIMPLE COMMANDS. CEA IS ELEVATED AT 11.1. GI ONBOARD FOR EVALUATION OF ASCITES. TALKED TO THE DAUGHTER AT BEDSIDE WHO MENTIONS THAT SHE IS FORGETFUL IN TERMS OF SHORT TERM MEMORY AT HOME, AND REPETITIVE IN CONVERSATIONS AND HAS POOR ATTENTION SPAN AND SLOW THOUIGHT PROCESS. MRI BRAIN PENDING. PT WILL GET TODAY. PT HAD EPISODES OF FLUCTUATING DELIRIUM DURING HER HOSPITAL COURSE. ROS: 14 POINT REVIEW OF SYMPTOMS IS NEGATIVE PER HPI. ALLERGIES: NONE SOCIAL HISTORY: NO ILLICIT DRUG USE, POSITIVE SMOKING, DAILY ETOH USE. FAMILY: NON CONTRIBUTORY. MEDICATIONS: REVIEWED BY NURSE'S RECONCILIATION SHEET. PAST MEDICAL HISTORY:HTN, ALCOHOL ABUSE PHYSICAL EXAM: VITAL SIGNS: REVIEWED BY THE CHART GENERAL EXAM: PATIENT SEEN IN BED, IN NO ACUTE DISTRESS MORBIDLY OBESE. HEENT: PERRLA, EOMI, NECK SUPPLE, NO JVD, NO ADENOPATHY CVS: S1, S2, RRR, NO MURMURS NOTED LUNGS: CLEAR TO AUSCULTATION, NO ADVENTITIOUS SOUNDS ABDOMEN: DISTENDED, BS PRESENT. EXTREMITIES: NO CLUBBING OR CYANOSIS. PP 2+ B/L HAS B/L PEDAL EDEMA NEURO: PT IS ALERT AND ORIENTED TO PERSON, PLACE, AND YEAR. POOR ATTENTION SPAN , SLOW THOUGHT PROCESS, RECALL TO 5 MINUTES 0/3, SPEECH IS FLUENT WITHOUT ERRORS, CN II-XII INTACT, MOTOR EXAM: NORMAL TONE, NORMAL BULK OF MUSCLE, MOVES ALL EXTREMITIES EQUALLY, NO PRONATOR DRIFT SEEN. SENSORY EXAM: DECREASEDLIGHT TOUCH, PIN PRICK UP TO CALVES B/L, PROPRIOCEPTION , DECREASED VIBRATION AT TOES AND KNEES. DEEP TENDON REFLEXES: 2+ THROUGHOUT EXCEPT 1 AT THE ANKLES. COORDINATION: FINGER TO NOSE IS INTACT. HEEL TO RAY IS INTACT GAIT: DEFERRED FOR NOW. LABS: REVIEWED BY THE CHART. ASSESSMENT AND PLAN: 61 YEAR OLD WOMAN WITH PMH OF HTN, ALCOHOL ABUSE, AND WEIGHT LOSS OF 60 LBS IN 1 YEAR, WITH H/O OF RECENT DIARRHEA AND ABDOMINAL PAIN AND WAS FOUND TO HAVE NEW ONSET CONFUSION, WITH NEW ONSET A-FIB WITH RVR ON HEPARIN PER CARDIAC PROTOCOL. PT CT HEAD SHOWED MILD ATROPHY AND NO ACUTE INTRACRANIAL ABNORMALITY. PT INITIALLY HAD HYPONATREMIA, HYPOKALEMIA WHICH IS BEING CORRECTED. PT MOVES ALL EXTREMITIES AND FOLLOWS SIMPLE COMMANDS. CEA IS ELEVATED AT 11.1. GI ONBOARD FOR EVALUATION OF ASCITES. NEW ONSET CONFUSION LIKELY SECONDARY TO TRANSIENT CONFUSIONAL STATE FROM UNDERLYING INITIAL ELECTROLYTE DERANGEMENTS, TRANSIENT HYPOPERFUSION TO THE BRAIN, AND A-FIB RVR. SHE HAS A BASELINE MODERATE COGNITIVE IMPAIRMENT. HER FLUCTUATING CONFUSION IN THE HOSPITAL IS SECONDARY TO TRANSIENT DELIRIUM DUE TO UNFAMILIAR ENVIRONMENT WHICH IS NOT UNCOMMON. PLAN: 1.ASA 81 MG FOR STROKE PREVENTION 2. MONITOR ELECTROLYTES AND CORRECT ACCORDINGLY. 3. MRI OF BRAIN TO ASSESS FOR ANY INTRACRANIAL ABNORMALITIES GIVEN OVARIAN MASS WHICH IS CURRENTLY PENDING. 4. AVOID SEDATING MEDICATIONS. 5. DELIRIUM PRECAUTIONS. 6. GENTLE HYDRATION. 7. FOLLOW UP WITH GI FOR ASCITES AND ONCOLOGY FOR OVARIAN MASS. 8. F/U WITH CARDIOLOGY RECOMMENDATION FOR A-FIB. 9. WILL RECOMMEND TO BE ON NAMENDA 14MG XR, CO Q 10 400MG DAILY AND ALPHA LIPOIC ACID 600MG DAILY AN OUTPATIENT FOR COGNITIVE IMPAIRMENT 10. EXPLAINED TO DAUGHTER AND PATIENT THE NEED FOR DAILY ATTENTION AND CONCENTRATION EXERCISES,. THANK YOU Ilya OLVERA MD Objective - Vital Signs/Intake and Output Vital Signs (last 24 hours): Temp Pulse Resp BP Pulse Ox 97.2 F L 86 18 112/65 99 05/30/17 12:00 05/30/17 12:00 05/30/17 12:00 05/30/17 12:00 05/30/17 06:00 Intake and Output: 05/30/17 05/30/17 06:59 18:59 Intake Total 540 Balance 540 - Medications Medications: Current Medications Famotidine (Pepcid) 20 mg PO 1000,2200 [facility] Last Admin: 05/30/17 09:36 Dose: 20 mg Heparin Sodium/Sodium Chloride (Heparin 22002 Units/250ml 1/2 Normal Saline) 25 ,000 units in 250 mls @ 11.333 mls/hr IV .Q22H4M PRN; Protocol; 18 UNITS/KG/HR PRN Reason: ADJUST RATE PER PROTOCOL Last Titration: 05/29/17 15:02 Dose: 13 units/kg/hr, 8.185 mls/hr Metoprolol Tartrate (Lopressor) 50 mg PO BID [facility] Last Admin: 05/30/17 09:36 Dose: 50 mg - Labs Labs: 05/30/17 05:20 05/30/17 05:20 PT 12.7 Seconds (9.9-11.8) H 05/27/17 16:45 INR 1.18 (0.93-1.08) H 05/27/17 16:45 APTT 55.0 Seconds (23.7-30.8) H 05/30/17 05:20
--- NOTE | 2017-05-30 18:18 | MRI ---
EXAM: MR Head Without and With Intravenous Contrast CLINICAL HISTORY: The patient age is 61 years old and is female; Signs and symptoms; Altered mental status/memory loss; Additional info: AMS. Patient very confused. Limited study patient moving a lot Facility exam id and description: Mri br cs brain w wo contrast TECHNIQUE: Magnetic resonance images of the head/brain without and with intravenous contrast in multiple planes. CONTRAST: 15 mL of OMNISCAN administered intravenously. EXAM DATE/TIME: 05/30/2017 4:30 PM COMPARISON: CT - HEAD W/O CONTRAST 05/27/2017 7:54:36 PM FINDINGS: Artifacts: Motion artifact limits this study. Brain: There is no restricted diffusion within the brain to suggest acute ischemic change. There are periventricular foci of high FLAIR signal intensity within the cerebral white matter. There is no mass effect or restricted diffusion associated with these foci. In a patient this age, this likely represents chronic small vessel ischemic disease. There is prominence of the ventricles and sulci, compatible with atrophy. FLAIR hyperintense gliosis is visualized within the right occipital lobe, without restricted diffusion or abnormal enhancement. Chronic ischemic change is considered. No abnormally enhancing intracranial mass is visualized. Ventricles: See above. Bones/joints: No acute abnormality. Sinuses: Unremarkable as visualized. No acute sinusitis. Mastoid air cells: No mastoid effusion. Orbits: No acute abnormality, as visualized. IMPRESSION: 1. There is no restricted diffusion within the brain to suggest acute ischemic change. 2. There are periventricular foci of high FLAIR signal intensity within the cerebral white matter. In a patient this age, this likely represents chronic small vessel ischemic disease. 3. Atrophy. 4. Nonspecific gliosis is visualized within the right occipital lobe. Chronic ischemic change is considered.
--- NOTE | 2017-05-30 20:52 | CP.PCM.CON ---
History of Present Illness - History of Present Illness History of Present Illness: CHANGE OF MENTAL STATUS Review of Systems - Review of Systems Systems not reviewed;Unavailable: Altered Mental Status - Constitutional Constitutional: Lethargy Past Patient History - Infectious Disease Hx of Infectious Diseases: None - Past Medical History & Family History Past Medical History?: Yes - Past Social History Smoking Status: Light Smoker < 10 Cigarettes Daily Alcohol: > 2 Drinks/Day - CARDIAC Hx Cardia Arrhythmia: Yes (new onset afib) Hx Hypercholesterolemia: Yes Hx Hypertension: Yes - PULMONARY Hx Respiratory Disorders: No - NEUROLOGICAL Hx Alzheimer's Disease: Yes (early stages) - HEENT Hx HEENT Problems: No - RENAL Hx Chronic Kidney Disease: No - ENDOCRINE/METABOLIC Hx Endocrine Disorders: No Other/Comment: Low blood sugar - HEMATOLOGICAL/ONCOLOGICAL Hx Blood Disorders: No - INTEGUMENTARY Hx Dermatological Problems: No - MUSCULOSKELETAL/RHEUMATOLOGICAL Hx Falls: No Hx Unsteady Gait: Yes (uses cane at home) - GASTROINTESTINAL Other/Comment: diarrhea - GENITOURINARY/GYNECOLOGICAL Hx Genitourinary Disorders: No - PSYCHIATRIC Hx Depression: Yes Hx Substance Use: No Meds Allergies/Adverse Reactions: Allergies Allergy/AdvReac Type Severity Reaction Status Date / Time No Known Allergies Allergy Unverified 05/27/17 16:33 - Medications Medications: Current Medications Famotidine (Pepcid) 20 mg PO 1000,2200 [facility] Last Admin: 05/30/17 09:36 Dose: 20 mg Heparin Sodium/Sodium Chloride (Heparin 82157 Units/250ml 1/2 Normal Saline) 25 ,000 units in 250 mls @ 11.333 mls/hr IV .Q22H4M PRN; Protocol; 18 UNITS/KG/HR PRN Reason: ADJUST RATE PER PROTOCOL Last Titration: 05/29/17 15:02 Dose: 13 units/kg/hr, 8.185 mls/hr Acyclovir 500 mg/ Sodium (Chloride) 100 mls @ 100 mls/hr IV Q8 ALF PRN Reason: Protocol Stop: 06/08/17 22:01 Metoprolol Tartrate (Lopressor) 50 mg PO BID [facility] Last Admin: 05/30/17 18:29 Dose: 50 mg Physical Exam - Constitutional Appears: Unkempt, Older Than Stated Age, Confused, Chronically Ill - Head Exam Head Exam: NORMAL INSPECTION - Eye Exam Eye Exam: EOMI, Normal appearance, PERRL - ENT Exam ENT Exam: Mucous Membranes Moist, Normal Exam - Neck Exam Neck exam: Positive for: Normal Inspection - Respiratory Exam Respiratory Exam: Clear to Auscultation Bilateral, NORMAL BREATHING PATTERN - Cardiovascular Exam Cardiovascular Exam: REGULAR RHYTHM - GI/Abdominal Exam GI & Abdominal Exam: Normal Bowel Sounds, Soft. absent: Tenderness - Rectal Exam Rectal Exam: NORMAL INSPECTION - Exam Exam: Circumcision, NORMAL INSPECTION External exam: NORMAL EXTERNAL EXAM Speculum exam: NORMAL SPECULUM EXAM Bimanual exam: NORMAL BIMANUAL EXAM - Back Exam Back exam: NORMAL INSPECTION - Neurological Exam Neurological exam: Altered - Skin Skin Exam: Dry, Intact, Normal Color, Warm Results - Vital Signs Recent Vital Signs: Last Vital Signs Temp 97.5 F L 05/30/17 18:00 Pulse 94 H 05/30/17 18:00 Resp 18 05/30/17 18:00 BP 120/80 05/30/17 18:00 Pulse Ox 99 05/30/17 06:00 - Labs Result Diagrams: 05/30/17 05:20 05/30/17 05:20 Labs: Laboratory Results - last 24 hr 05/29/17 05/29/17 05/30/17 14:28 20:01 05:20 WBC 12.4 H RBC 3.71 Hgb 12.7 Hct 37.0 MCV 99.7 MCH 34.2 MCHC 34.3 RDW 13.8 Plt Count 198 MPV 9.8 Gran % 70.8 H Lymph % (Auto) 20.3 L [place] % (Auto) 8.4 H Eos % (Auto) 0.1 L Baso % (Auto) 0.4 Gran # 8.80 H Lymph # 2.5 [place] # 1.0 H Eos # 0.0 Baso # 0.05 APTT 62.5 H Sodium Potassium Chloride Carbon Dioxide Anion Gap BUN Creatinine Est GFR ( Amer) Est GFR (Non-Af Amer) Random Glucose Calcium Total Bilirubin AST ALT Alkaline Phosphatase Total Protein Albumin Globulin Albumin/Globulin Ratio CA 125 Antigen 1240 H 05/30/17 05/30/17 05:20 05:20 WBC RBC Hgb Hct MCV MCH MCHC RDW Plt Count MPV Gran % Lymph % (Auto) [place] % (Auto) Eos % (Auto) Baso % (Auto) Gran # Lymph # [place] # Eos # Baso # APTT 55.0 H Sodium 134 Potassium 4.0 Chloride 102 Carbon Dioxide 26 Anion Gap 10 BUN 17 Creatinine 0.8 Est GFR ( Amer) > 60 Est GFR (Non-Af Amer) > 60 Random Glucose 73 Calcium 8.1 L Total Bilirubin 0.7 AST 41 H ALT 29 Alkaline Phosphatase 133 Total Protein 5.9 Albumin 2.2 L Globulin 3.8 Albumin/Globulin Ratio 0.6 L CA 125 Antigen - Impressions Impression: SIRS CHANGE OF MENTAL STATUS OVARIAN MASS R/O NMDA O-QATLZS-Z-ASPARTIC ACID RECEPTOR ANTIBODY Assessment & Plan (1) Encephalitis Status: Acute (2) SIRS (systemic inflammatory response syndrome) Status: Acute (3) 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
[2017-05-30] MEDS: Acyclovir 500 MG in Sodium Chloride 0.9% 100 ML IV SCH (22:23)
[2017-05-31] MEDS: Piperacillin/Tazobact 3.375 gm 100 ML IVPB SCH ×5 (01:30→23:53)
[2017-05-31] MEDS: Acyclovir 500 MG in Sodium Chloride 0.9% 100 ML IV SCH ×3 (06:54→21:51)
[2017-05-31 07:50] LABS: BASO # 0.02 K/mm3 (0.0-2.0); BASO % 0.2 % (0.0-3.0); EOS % 0.2 % (1.5-5.0); GRAN # 8.19 (1.4-6.5); GRAN % 69.4 % (50.0-68.0); LYMPH # 2.5 (1.2-3.4); LYMPH % 20.8 % (22.0-35.0); MEAN CORPUSCULAR HEMOGLOBIN 34.3 pg (25.0-35.0); MEAN CORPUSCULAR HGB CONC 34.3 g/dl (31.0-37.0); MEAN PLATELET VOLUME 10.5 fl (7.0-11.0); MONO # 1.1 (0.1-0.6); MONO % 9.4 % (1.0-6.0); PLATELET COUNT 169 10^3/uL (120.0-450.0); WHITE BLOOD COUNT 11.8 10^3/ul (4.5-11.0)
[2017-05-31 08:07] LABS: BLOOD UREA NITROGEN 20 mg/dL (7-21); CALCIUM 8.3 mg/dL (8.4-10.5); GFR AFRICAN-AMERICAN > 60; GFR NON-AFRICAN AMERICAN > 60
[2017-05-31] MEDS ORDERED: Potassium Chloride 20 mEq ER Tab PO ONE (08:59)
--- NOTE | 2017-05-31 09:54 | CP.PCM.PN ---
Subjective - Date & Time of Evaluation Date of Evaluation: 05/31/17 Time of Evaluation: 06:30 - Subjective Subjective: better awake and oriented to person not to place and time Objective - Vital Signs/Intake and Output Vital Signs (last 24 hours): Temp Pulse Resp BP Pulse Ox 97.8 F 104 H 20 109/74 97 05/31/17 06:00 05/31/17 06:00 05/31/17 06:00 05/31/17 06:00 05/31/17 06:00 Intake and Output: 05/31/17 05/31/17 06:59 18:59 Intake Total 616 Balance 616 - Medications Medications: Current Medications Famotidine (Pepcid) 20 mg PO 1000,2200 [facility] Last Admin: 05/30/17 22:24 Dose: 20 mg Heparin Sodium/Sodium Chloride (Heparin 14385 Units/250ml 1/2 Normal Saline) 25 ,000 units in 250 mls @ 11.333 mls/hr IV .Q22H4M PRN; Protocol; 18 UNITS/KG/HR PRN Reason: ADJUST RATE PER PROTOCOL Last Titration: 05/29/17 15:02 Dose: 13 units/kg/hr, 8.185 mls/hr Acyclovir 500 mg/ Sodium (Chloride) 100 mls @ 100 mls/hr IV Q8 ALF PRN Reason: Protocol Stop: 06/08/17 22:01 Last Admin: 05/31/17 06:54 Dose: 100 mls/hr Piperacillin Sod/Tazobactam Sod (Zosyn 3.375 In Ns 100ml) 100 mls @ 200 mls/hr IVPB Q6 ALF PRN Reason: Protocol Stop: 06/09/17 00:01 Last Admin: 05/31/17 06:06 Dose: 200 mls/hr Metoprolol Tartrate (Lopressor) 50 mg PO BID [facility] Last Admin: 05/30/17 18:29 Dose: 50 mg - Labs Labs: 05/31/17 06:30 05/31/17 06:30 PT 12.7 Seconds (9.9-11.8) H 05/27/17 16:45 INR 1.18 (0.93-1.08) H 05/27/17 16:45 APTT 55.0 Seconds (23.7-30.8) H 05/30/17 05:20 - Constitutional Appears: Well - Head Exam Head Exam: ATRAUMATIC, NORMAL INSPECTION, NORMOCEPHALIC - Eye Exam Eye Exam: EOMI, Normal appearance, PERRL Pupil Exam: NORMAL ACCOMODATION, PERRL - ENT Exam ENT Exam: Mucous Membranes Moist, Normal Exam - Neck Exam Neck Exam: Full ROM, Normal Inspection. absent: Lymphadenopathy - Respiratory Exam Respiratory Exam: Clear to Ausculation Bilateral, NORMAL BREATHING PATTERN - Cardiovascular Exam Cardiovascular Exam: REGULAR RHYTHM, +S1, +S2. absent: Murmur - GI/Abdominal Exam GI & Abdominal Exam: Soft, Normal Bowel Sounds. absent: Tenderness - Rectal Exam Rectal Exam: NORMAL INSPECTION - Exam Exam: Circumcision, NORMAL INSPECTION External exam: NORMAL EXTERNAL EXAM Speculum exam: NORMAL SPECULUM EXAM Bimanual exam: NORMAL BIMANUAL EXAM - Extremities Exam Extremities Exam: Full ROM, Normal Capillary Refill, Normal Inspection. absent : Joint Swelling, Pedal Edema - Back Exam Back Exam: NORMAL INSPECTION - Neurological Exam Neurological Exam: Alert, Awake, CN II-XII Intact, Normal Gait, Oriented x3 - Psychiatric Exam Psychiatric exam: Normal Affect, Normal Mood - Skin Skin Exam: Dry, Intact, Normal Color, Warm Assessment and Plan (1) Encephalitis Status: Acute (2) SIRS (systemic inflammatory response syndrome) Status: Acute (3) Brca-K-njslhj-D-aspartate (NMDA) receptor encephalitis Status: Acute (4) Ascites due to alcoholic cirrhosis Status: Acute - Assessment and Plan (Free Text) Plan: LP ASCITIC FLUID EVAA PRESENT ABX
--- NOTE | 2017-05-31 13:00 | CP.PCM.PN ---
Subjective - Date & Time of Evaluation Date of Evaluation: 05/31/17 Time of Evaluation: 09:50 - Subjective Subjective: NEURO PROGRESS NOTE: 05/31/17 CHIEF COMPLAINT: F/U FOR NEW ONSET CONFUSION SUBJECTIVE: 61 YEAR OLD WOMAN WITH PMH OF HTN, ALCOHOL ABUSE, AND WEIGHT LOSS OF 60 LBS IN 1 YEAR, WITH H/O OF RECENT DIARRHEA AND ABDOMINAL PAIN AND WAS FOUND TO HAVE NEW ONSET CONFUSION, WITH NEW ONSET A-FIB WITH RVR ON HEPARIN PER CARDIAC PROTOCOL. PT CT HEAD SHOWED MILD ATROPHY AND NO ACUTE INTRACRANIAL ABNORMALITY. PT INITIALLY HAD HYPONATREMIA, HYPOKALEMIA WHICH IS BEING CORRECTED. PT MOVES ALL EXTREMITIES AND FOLLOWS SIMPLE COMMANDS. CEA IS ELEVATED AT 11.1. GI ONBOARD FOR EVALUATION OF ASCITES. TALKED TO THE DAUGHTER AT BEDSIDE WHO MENTIONS THAT SHE IS FORGETFUL IN TERMS OF SHORT TERM MEMORY AT HOME, AND REPETITIVE IN CONVERSATIONS AND HAS POOR ATTENTION SPAN AND SLOW THOUIGHT PROCESS. MRI BRAIN PENDING. PT WILL GET TODAY. PT HAD EPISODES OF FLUCTUATING DELIRIUM DURING HER HOSPITAL COURSE. MRI BRAIN REVIEWED SHOWED NO ACUTE ABNORMALITIES, JUST CHRONIC ISCHEMIC CHANGES , NO FEATURES OF ENCEPHALITIS. THIS IS NOT NMDA ENCEPHALITIS, GIVEN NO FOCAL NEUROLOGICAL EVENTS, NO SEIZURES , NO APHASIA OR FOCAL MOTOR ABNORMALITIES. 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 ROS: 14 POINT REVIEW OF SYMPTOMS IS NEGATIVE PER HPI. ALLERGIES: NONE SOCIAL HISTORY: NO ILLICIT DRUG USE, POSITIVE SMOKING, DAILY ETOH USE. FAMILY: NON CONTRIBUTORY. MEDICATIONS: REVIEWED BY NURSE'S RECONCILIATION SHEET. PAST MEDICAL HISTORY:HTN, ALCOHOL ABUSE PHYSICAL EXAM: VITAL SIGNS: REVIEWED BY THE CHART GENERAL EXAM: PATIENT SEEN IN BED, IN NO ACUTE DISTRESS MORBIDLY OBESE. HEENT: PERRLA, EOMI, NECK SUPPLE, NO JVD, NO ADENOPATHY CVS: S1, S2, RRR, NO MURMURS NOTED LUNGS: CLEAR TO AUSCULTATION, NO ADVENTITIOUS SOUNDS ABDOMEN: DISTENDED, BS PRESENT. EXTREMITIES: NO CLUBBING OR CYANOSIS. PP 2+ B/L HAS B/L PEDAL EDEMA NEURO: PT IS ALERT AND ORIENTED TO PERSON, PLACE, AND YEAR. POOR ATTENTION SPAN , SLOW THOUGHT PROCESS, RECALL TO 5 MINUTES 0/3, SPEECH IS FLUENT WITHOUT ERRORS, CN II-XII INTACT, MOTOR EXAM: NORMAL TONE, NORMAL BULK OF MUSCLE, MOVES ALL EXTREMITIES EQUALLY, NO PRONATOR DRIFT SEEN. SENSORY EXAM: DECREASEDLIGHT TOUCH, PIN PRICK UP TO CALVES B/L, PROPRIOCEPTION , DECREASED VIBRATION AT TOES AND KNEES. DEEP TENDON REFLEXES: 2+ THROUGHOUT EXCEPT 1 AT THE ANKLES. COORDINATION: FINGER TO NOSE IS INTACT. HEEL TO RAY IS INTACT GAIT: DEFERRED FOR NOW. LABS: REVIEWED BY THE CHART. ASSESSMENT AND PLAN: 61 YEAR OLD WOMAN WITH PMH OF HTN, ALCOHOL ABUSE, AND WEIGHT LOSS OF 60 LBS IN 1 YEAR, WITH H/O OF RECENT DIARRHEA AND ABDOMINAL PAIN AND WAS FOUND TO HAVE NEW ONSET CONFUSION, WITH NEW ONSET A-FIB WITH RVR ON HEPARIN PER CARDIAC PROTOCOL. PT CT HEAD SHOWED MILD ATROPHY AND NO ACUTE INTRACRANIAL ABNORMALITY. PT INITIALLY HAD HYPONATREMIA, HYPOKALEMIA WHICH IS BEING CORRECTED. PT MOVES ALL EXTREMITIES AND FOLLOWS SIMPLE COMMANDS. CEA IS ELEVATED AT 11.1. GI ONBOARD FOR EVALUATION OF ASCITES. NEW ONSET CONFUSION LIKELY SECONDARY TO TRANSIENT CONFUSIONAL STATE FROM UNDERLYING INITIAL ELECTROLYTE DERANGEMENTS, TRANSIENT HYPOPERFUSION TO THE BRAIN, AND A-FIB RVR. SHE HAS A BASELINE MODERATE COGNITIVE IMPAIRMENT. HER FLUCTUATING CONFUSION IN THE HOSPITAL IS SECONDARY TO TRANSIENT DELIRIUM DUE TO UNFAMILIAR ENVIRONMENT WHICH IS NOT UNCOMMON. MRI BRAIN REVIEWED SHOWED NO ACUTE ABNORMALITIES, JUST CHRONIC ISCHEMIC CHANGES , NO FEATURES OF ENCEPHALITIS. THIS IS NOT NMDA ENCEPHALITIS, GIVEN NO FOCAL NEUROLOGICAL EVENTS, NO SEIZURES , NO APHASIA OR FOCAL MOTOR ABNORMALITIES. 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 PLAN: 1.ASA 81 MG FOR STROKE PREVENTION 2. MONITOR ELECTROLYTES AND CORRECT ACCORDINGLY. 3. WILL ORDER SERUM NMDA ABS BEFORE CONSIDERING A SPINAL TAP SINCE I DONT SEE HER TO BE ENCEPHALOPATHIC. WILL OBTAIN AN EEG WELL. 4. AVOID SEDATING MEDICATIONS. 5. DELIRIUM PRECAUTIONS. 6. GENTLE HYDRATION. 7. FOLLOW UP WITH GI FOR ASCITES AND ONCOLOGY FOR OVARIAN MASS. 8. F/U WITH CARDIOLOGY RECOMMENDATION FOR A-FIB. 9. WILL RECOMMEND TO BE ON NAMENDA 14MG XR, CO Q 10 400MG DAILY AND ALPHA LIPOIC ACID 600MG DAILY AN OUTPATIENT FOR COGNITIVE IMPAIRMENT 10. EXPLAINED TO DAUGHTER AND PATIENT THE NEED FOR DAILY ATTENTION AND CONCENTRATION EXERCISES,. THANK YOU Ilya OLVERA MD Objective - Vital Signs/Intake and Output Vital Signs (last 24 hours): Temp Pulse Resp BP Pulse Ox 98.3 F 107 H 20 114/59 L 97 05/31/17 12:00 05/31/17 12:05/31/17 12:00 05/31/17 12:00 05/31/17 06:00 Intake and Output: 05/31/17 05/31/17 06:59 18:59 Intake Total 616 Balance 616 - Medications Medications: Current Medications Famotidine (Pepcid) 20 mg PO 1000,2200 [facility] Last Admin: 05/31/17 11:35 Dose: 20 mg Heparin Sodium/Sodium Chloride (Heparin 91537 Units/250ml 1/2 Normal Saline) 25 ,000 units in 250 mls @ 11.333 mls/hr IV .Q22H4M PRN; Protocol; 18 UNITS/KG/HR PRN Reason: ADJUST RATE PER PROTOCOL Last Titration: 05/29/17 15:02 Dose: 13 units/kg/hr, 8.185 mls/hr Acyclovir 500 mg/ Sodium (Chloride) 100 mls @ 100 mls/hr IV Q8 ALF PRN Reason: Protocol Stop: 06/08/17 22:01 Last Admin: 05/31/17 06:54 Dose: 100 mls/hr Piperacillin Sod/Tazobactam Sod (Zosyn 3.375 In Ns 100ml) 100 mls @ 200 mls/hr IVPB Q6 ALF PRN Reason: Protocol Stop: 06/09/17 00:01 Last Admin: 05/31/17 06:06 Dose: 200 mls/hr Metoprolol Tartrate (Lopressor) 50 mg PO BID [facility] Last Admin: 05/31/17 11:34 Dose: 50 mg - Labs Labs: 05/31/17 06:30 05/31/17 06:30 PT 12.7 Seconds (9.9-11.8) H 05/27/17 16:45 INR 1.18 (0.93-1.08) H 05/27/17 16:45 APTT 55.0 Seconds (23.7-30.8) H 05/30/17 05:20
[2017-05-31 13:15] LABS: FOLATE 3.5 ng/mL
[2017-05-31] MEDS: Heparin25000 units/250ml 1/2NS 25,000 UNITS/250 ML BAG IV PRN (21:50)
--- NOTE | 2017-06-01 00:26 | CP.PCM.PN ---
Subjective - Date & Time of Evaluation Date of Evaluation: 06/01/17 Time of Evaluation: 00:21 - Subjective Subjective: called by nurse pt is agitated kiking the staff pt is alcoholic , and is admitted for rapid a-fib. Objective - Vital Signs/Intake and Output Vital Signs (last 24 hours): Temp Pulse Resp BP Pulse Ox 97.7 F 112 H 20 104/65 97 05/31/17 18:00 05/31/17 18:00 05/31/17 18:00 05/31/17 18:00 05/31/17 06:00 Intake and Output: 05/31/17 06/01/17 18:59 06:59 Intake Total 420 Balance 420 - Medications Medications: Current Medications Famotidine (Pepcid) 20 mg PO 1000,2200 [facility] Last Admin: 05/31/17 21:52 Dose: 20 mg Heparin Sodium/Sodium Chloride (Heparin 68215 Units/250ml 1/2 Normal Saline) 25 ,000 units in 250 mls @ 11.333 mls/hr IV .Q22H4M PRN; Protocol; 18 UNITS/KG/HR PRN Reason: ADJUST RATE PER PROTOCOL Last Admin: 05/31/17 21:50 Dose: 13 units/kg/hr, 8.185 mls/hr Acyclovir 500 mg/ Sodium (Chloride) 100 mls @ 100 mls/hr IV Q8 ALF PRN Reason: Protocol Stop: 06/08/17 22:01 Last Admin: 05/31/17 21:51 Dose: 100 mls/hr Piperacillin Sod/Tazobactam Sod (Zosyn 3.375 In Ns 100ml) 100 mls @ 200 mls/hr IVPB Q6 ALF PRN Reason: Protocol Stop: 06/09/17 00:01 Last Admin: 05/31/17 23:53 Dose: 200 mls/hr Lorazepam (Ativan) 0.5 mg IVP ONCE ONE PRN Reason: Protocol Stop: 06/01/17 00:15 Metoprolol Tartrate (Lopressor) 50 mg PO BID [facility] Last Admin: 05/31/17 17:18 Dose: 50 mg - Labs Labs: 05/31/17 06:30 05/31/17 06:30 PT 12.7 Seconds (9.9-11.8) H 05/27/17 16:45 INR 1.18 (0.93-1.08) H 05/27/17 16:45 APTT 53.4 Seconds (23.7-30.8) H 05/31/17 15:49 - Constitutional Appears: No Acute Distress - Head Exam Head Exam: NORMOCEPHALIC - Eye Exam Eye Exam: Normal appearance Pupil Exam: PERRL - Neck Exam Neck Exam: Full ROM - Respiratory Exam Respiratory Exam: NORMAL BREATHING PATTERN - Cardiovascular Exam Cardiovascular Exam: RRR, +S1, +S2 - Extremities Exam Extremities Exam: Full ROM - Neurological Exam Neurological Exam: Awake, CN II-XII Intact - Psychiatric Exam Psychiatric exam: Agitated - Skin Skin Exam: Dry, Warm Assessment and Plan - Assessment and Plan (Free Text) Assessment: agitation hx of etoh . a-fib. Plan: ativan 1 mg x1 stat. bana bag. spoke to Dr reaves states he thinks it is due to encephalitis and call Dr brian arias. called Dr brian arias states to give ativan prn and continue the banan bag . he will f/u the pt.
[2017-06-01] MEDS ORDERED: Folic Acid 1 MG, Thiamine 100 MG, Multivitamin (MVI) 10 ML in Dextrose 5% In Water 1,00... IV SCH (00:30)
[2017-06-01] MEDS: Acyclovir 500 MG in Sodium Chloride 0.9% 100 ML IV SCH (05:21)
[2017-06-01] MEDS: Piperacillin/Tazobact 3.375 gm 100 ML IVPB SCH (05:21)
[2017-06-01 07:55] LABS: BASO # 0.03 K/mm3 (0.0-2.0); BASO % 0.4 % (0.0-3.0); EOS # 0.1 (0.0-0.7); EOS % 0.6 % (1.5-5.0); GRAN # 5.84 (1.4-6.5); GRAN % 71.1 % (50.0-68.0); HEMOGLOBIN 9.6 gm/dL (12.0-16.0); LYMPH # 1.6 (1.2-3.4); MEAN CELL VOLUME 102.1 fL (80.0-105.0); MEAN CORPUSCULAR HEMOGLOBIN 33.3 pg (25.0-35.0); MEAN CORPUSCULAR HGB CONC 32.7 g/dl (31.0-37.0); MEAN PLATELET VOLUME 9.3 fl (7.0-11.0); MONO # 0.7 (0.1-0.6); MONO % 7.9 % (1.0-6.0); PLATELET COUNT 118 10^3/uL (120.0-450.0); RBC 2.88 10^6/uL (3.5-6.1); WHITE BLOOD COUNT 8.2 10^3/ul (4.5-11.0)
--- NOTE | 2017-06-01 10:15 | RAD ---
HISTORY: Wheezing. COMPARISON: 05/27/2017. FINDINGS: LUNGS: No active pulmonary disease. PLEURA: No significant pleural effusion identified, no pneumothorax apparent. CARDIOVASCULAR: No radiographic findings to suggest acute or significant cardiovascular disease. OSSEOUS STRUCTURES: No significant abnormalities. VISUALIZED UPPER ABDOMEN: Normal. OTHER FINDINGS: None. IMPRESSION: No active disease. No significant interval change compared to the prior examination(s).
--- NOTE | 2017-06-01 10:42 | CP.PCM.PN ---
Subjective - Date & Time of Evaluation Date of Evaluation: 06/01/17 Time of Evaluation: 07:30 - Subjective Subjective: CONFUSED Objective - Vital Signs/Intake and Output Vital Signs (last 24 hours): Temp Pulse Resp BP Pulse Ox 97.8 F 128 H 17 116/73 96 06/01/17 06:00 06/01/17 10:19 06/01/17 06:00 06/01/17 10:19 06/01/17 06:00 Intake and Output: 06/01/17 06/01/17 06:59 18:59 Intake Total 1597 Output Total 3 Balance 1594 - Medications Medications: Current Medications Famotidine (Pepcid) 20 mg PO 1000,2200 [facility] Last Admin: 05/31/17 21:52 Dose: 20 mg Heparin Sodium/Sodium Chloride (Heparin 86949 Units/250ml 1/2 Normal Saline) 25 ,000 units in 250 mls @ 11.333 mls/hr IV .Q22H4M PRN; Protocol; 18 UNITS/KG/HR PRN Reason: ADJUST RATE PER PROTOCOL Last Admin: 05/31/17 21:50 Dose: 13 units/kg/hr, 8.185 mls/hr Piperacillin Sod/Tazobactam Sod (Zosyn 3.375 In Ns 100ml) 100 mls @ 200 mls/hr IVPB Q6 ALF PRN Reason: Protocol Stop: 06/09/17 00:01 Last Admin: 06/01/17 05:21 Dose: 200 mls/hr Lorazepam (Ativan) 1 mg IVP Q6H PRN; Protocol PRN Reason: Anxiety Last Admin: 06/01/17 06:53 Dose: 1 mg Metoprolol Tartrate (Lopressor) 100 mg PO BID [facility] Last Admin: 06/01/17 10:19 Dose: 100 mg - Labs Labs: 06/01/17 07:40 05/31/17 06:30 PT 12.7 Seconds (9.9-11.8) H 05/27/17 16:45 INR 1.18 (0.93-1.08) H 05/27/17 16:45 APTT 72.1 Seconds (23.7-30.8) H* 06/01/17 07:40 - Constitutional Appears: Well - Head Exam Head Exam: ATRAUMATIC, NORMAL INSPECTION, NORMOCEPHALIC - Eye Exam Eye Exam: EOMI, Normal appearance, PERRL Pupil Exam: NORMAL ACCOMODATION, PERRL - ENT Exam ENT Exam: Mucous Membranes Moist, Normal Exam - Neck Exam Neck Exam: Full ROM, Normal Inspection. absent: Lymphadenopathy - Respiratory Exam Respiratory Exam: Clear to Ausculation Bilateral, NORMAL BREATHING PATTERN - Cardiovascular Exam Cardiovascular Exam: REGULAR RHYTHM, +S1, +S2. absent: Murmur - GI/Abdominal Exam GI & Abdominal Exam: Soft, Normal Bowel Sounds. absent: Tenderness - Rectal Exam Rectal Exam: NORMAL INSPECTION - Exam Exam: Circumcision, NORMAL INSPECTION External exam: NORMAL EXTERNAL EXAM Speculum exam: NORMAL SPECULUM EXAM Bimanual exam: NORMAL BIMANUAL EXAM - Extremities Exam Extremities Exam: Full ROM, Normal Capillary Refill, Normal Inspection. absent : Joint Swelling, Pedal Edema - Back Exam Back Exam: NORMAL INSPECTION - Neurological Exam Neurological Exam: Alert, Awake, CN II-XII Intact, Normal Gait, Oriented x3 - Psychiatric Exam Psychiatric exam: Normal Affect, Normal Mood - Skin Skin Exam: Dry, Intact, Normal Color, Warm Assessment and Plan (1) Encephalitis Status: Acute (2) SIRS (systemic inflammatory response syndrome) Status: Acute (3) Ytzq-Q-xgvgye-D-aspartate (NMDA) receptor encephalitis Status: Acute (4) Ascites due to alcoholic cirrhosis Status: Acute - Assessment and Plan (Free Text) Plan: ESTUARDO ACYCLO
[2017-06-01 10:49] LABS: ALB/GLOB RATIO 0.6 (1.1-1.8); ALBUMIN 2.1 g/dL (3.0-4.8); ALT/SGPT 28 U/L (7-56); AST/SGOT 38 U/L (15-39); BLOOD UREA NITROGEN 18 mg/dL (7-21); CALCIUM 8.2 mg/dL (8.4-10.5); GFR AFRICAN-AMERICAN > 60; GFR NON-AFRICAN AMERICAN > 60
--- NOTE | 2017-06-01 11:25 | CP.PCM.CON ---
History of Present Illness - History of Present Illness History of Present Illness: 61 yo female with h/o ETOH abuse, HTN who came with vague abdominal dyscomfort, diarrhea and weight loss of more then 60 lbs over the last 1 yr. She subsequently was found to have ascites and ovarian mass suspicious for ovarian CA. CEA came back 3.5-fold elevation as well. Her mental status was fluctuating and ID started empiric acyclovir. Today she became more altered and acyclovir was stopped, ICU consult was called out of concern for her ability to protect airways. Review of Systems - Constitutional Constitutional: Malaise Past Patient History - Infectious Disease Hx of Infectious Diseases: None - Past Medical History & Family History Past Medical History?: Yes - Past Social History Smoking Status: Light Smoker < 10 Cigarettes Daily Alcohol: > 2 Drinks/Day - CARDIAC Hx Hypertension: Yes - PULMONARY Hx Respiratory Disorders: No - NEUROLOGICAL Hx Alzheimer's Disease: Yes (early stages) - HEENT Hx HEENT Problems: No - RENAL Hx Chronic Kidney Disease: No - ENDOCRINE/METABOLIC Hx Endocrine Disorders: No Other/Comment: Low blood sugar - HEMATOLOGICAL/ONCOLOGICAL Hx Blood Disorders: No - INTEGUMENTARY Hx Dermatological Problems: No - MUSCULOSKELETAL/RHEUMATOLOGICAL Hx Falls: No Hx Unsteady Gait: Yes (uses cane at home) - GASTROINTESTINAL Other/Comment: diarrhea - GENITOURINARY/GYNECOLOGICAL Hx Genitourinary Disorders: No - PSYCHIATRIC Hx Depression: Yes Hx Substance Use: No Meds Allergies/Adverse Reactions: Allergies Allergy/AdvReac Type Severity Reaction Status Date / Time No Known Allergies Allergy Unverified 05/27/17 16:33 - Medications Medications: Current Medications Famotidine (Pepcid) 20 mg PO 1000,2200 ALF Last Admin: 05/31/17 21:52 Dose: 20 mg Heparin Sodium/Sodium Chloride (Heparin 71054 Units/250ml 1/2 Normal Saline) 25 ,000 units in 250 mls @ 11.333 mls/hr IV .Q22H4M PRN; Protocol; 18 UNITS/KG/HR PRN Reason: ADJUST RATE PER PROTOCOL Last Admin: 05/31/17 21:50 Dose: 13 units/kg/hr, 8.185 mls/hr Piperacillin Sod/Tazobactam Sod (Zosyn 3.375 In Ns 100ml) 100 mls @ 200 mls/hr IVPB Q6 ALF PRN Reason: Protocol Stop: 06/09/17 00:01 Last Admin: 06/01/17 05:21 Dose: 200 mls/hr Lorazepam (Ativan) 1 mg IVP Q6H PRN; Protocol PRN Reason: Anxiety Last Admin: 06/01/17 06:53 Dose: 1 mg Metoprolol Tartrate (Lopressor) 100 mg PO BID ALF Last Admin: 06/01/17 10:19 Dose: 100 mg Physical Exam - Constitutional Appears: No Acute Distress - Head Exam Head Exam: ATRAUMATIC - Eye Exam Eye Exam: Normal appearance - ENT Exam ENT Exam: Mucous Membranes Dry - Respiratory Exam Respiratory Exam: Clear to Auscultation Bilateral - Cardiovascular Exam Cardiovascular Exam: Irregular Rhythm, +S1, +S2 - GI/Abdominal Exam GI & Abdominal Exam: Soft Additional comments: non tender. Mild distention - Neurological Exam Neurological exam: Altered - Psychiatric Exam Psychiatric exam: Flat Affect Results - Vital Signs Recent Vital Signs: Last Vital Signs Temp 97.8 F 06/01/17 06:00 Pulse 128 H 06/01/17 10:19 Resp 17 06/01/17 06:00 BP 116/73 06/01/17 10:19 Pulse Ox 96 06/01/17 06:00 - Labs Result Diagrams: 06/01/17 07:40 06/01/17 10:30 Labs: Laboratory Results - last 24 hr 05/31/17 05/31/17 05/31/17 06:30 06:30 06:30 WBC RBC Hgb Hct MCV MCH MCHC RDW Plt Count MPV Gran % Lymph % (Auto) Pi[place] % (Auto) Eos % (Auto) Baso % (Auto) Gran # Lymph # [place] # Eos # Baso # APTT Sodium Potassium Chloride Carbon Dioxide Anion Gap BUN Creatinine Est GFR ( Amer) Est GFR (Non-Af Amer) Random Glucose Calcium Total Bilirubin AST ALT Alkaline Phosphatase C-React Prot High Sens > 15.00 H Total Protein Albumin Globulin Albumin/Globulin Ratio Vitamin B12 Folate Homocysteine RPR Nonreactive HIV 1&2 Ag/Ab, 4th Gen Nonreactive 05/31/17 05/31/17 05/31/17 06:30 06:30 15:49 WBC RBC Hgb Hct MCV MCH MCHC RDW Plt Count MPV Gran % Lymph % (Auto) [place] % (Auto) Eos % (Auto) Baso % (Auto) Gran # Lymph # [place] # Eos # Baso # APTT 53.4 H Sodium Potassium Chloride Carbon Dioxide Anion Gap BUN Creatinine Est GFR ( Amer) Est GFR (Non-Af Amer) Random Glucose Calcium Total Bilirubin AST ALT Alkaline Phosphatase C-React Prot High Sens Total Protein Albumin Globulin Albumin/Globulin Ratio Vitamin B12 855 Folate 3.5 Homocysteine 16.3 H RPR HIV 1&2 Ag/Ab, 4th Gen 06/01/17 06/01/17 06/01/17 07:40 07:40 10:30 WBC 8.2 D RBC 2.88 L Hgb 9.6 L Hct 29.4 L MCV 102.1 MCH 33.3 MCHC 32.7 RDW 14.0 Plt Count 118 L MPV 9.3 Gran % 71.1 H Lymph % (Auto) 20.0 L [place] % (Auto) 7.9 H Eos % (Auto) 0.6 L Baso % (Auto) 0.4 Gran # 5.84 Lymph # 1.6 Piute # 0.7 H Eos # 0.1 Baso # 0.03 APTT 72.1 H* Sodium 132 Potassium 3.7 Chloride 103 Carbon Dioxide 24 Anion Gap 9 L BUN 18 Creatinine 0.9 Est GFR ( Amer) > 60 Est GFR (Non-Af Amer) > 60 Random Glucose 91 Calcium 8.2 L Total Bilirubin 1.0 AST 38 ALT 28 Alkaline Phosphatase 108 C-React Prot High Sens Total Protein 5.8 Albumin 2.1 L Globulin 3.6 Albumin/Globulin Ratio 0.6 L Vitamin B12 Folate Homocysteine RPR HIV 1&2 Ag/Ab, 4th Gen
[2017-06-01] MEDS ORDERED: Lidocaine 1% Inj (20ml) IJ STA (11:35)
[2017-06-01] MEDS ORDERED: Lidocaine 1% Inj (20ml) ONE (11:43)
[2017-06-01 12:53] LABS: FLUID TYPE SPINAL FLUID
[2017-06-01 13:05] LABS: HEMOGLOBIN 11.7 gm/dL (12.0-16.0); MEAN CELL VOLUME 100.6 fL (80.0-105.0); MEAN CORPUSCULAR HEMOGLOBIN 34.4 pg (25.0-35.0); MEAN CORPUSCULAR HGB CONC 34.2 g/dl (31.0-37.0); MEAN PLATELET VOLUME 9.7 fl (7.0-11.0); RBC 3.4 10^6/uL (3.5-6.1); RED CELL DISTRIBUTION WIDTH 13.8 % (11.5-14.5); WHITE BLOOD COUNT 10.8 10^3/ul (4.5-11.0)
[2017-06-01 13:59] LABS: CSF APPEARANCE CLEAR/COLORLESS (CLEAR); CSF VOLUME 2 mL (0-1)
[2017-06-01] MEDS: Dextrose 5%/0.9% NS 1,000 ML IV SCH (19:00)
[2017-06-01 20:54] LABS: VENOUS BLOOD GAS BASE EXCESS -0.5 mmol/L (0.0-2.0); VENOUS BLOOD GAS PO2 81 mm/Hg (30-55); VENOUS BLOOD PH 7.47 (7.32-7.43)
[2017-06-01 20:56] LABS: BLOOD UREA NITROGEN 16 mg/dL (7-21); GFR AFRICAN-AMERICAN > 60; GFR NON-AFRICAN AMERICAN > 60
[2017-06-01 20:57] LABS: CALCIUM 7.9 mg/dL (8.4-10.5); MAGNESIUM 1.7 mg/dL (1.7-2.2)
[2017-06-01 20:58] LABS: ALB/GLOB RATIO 0.6 (1.1-1.8); ALT/SGPT 31 U/L (7-56); AST/SGOT 36 U/L (15-39); TROPONIN I < 0.02 ng/mL
--- NOTE | 2017-06-01 21:01 | CT ---
PROCEDURE: CT HEAD WITHOUT CONTRAST. HISTORY: COMPARISON: 05/27/2017. TECHNIQUE: Axial computed tomography images were obtained through the head/brain without intravenous contrast. Radiation dose: Total exam DLP = 822.62 mGy-cm. This CT exam was performed using one or more of the following dose reduction techniques: Automated exposure control, adjustment of the mA and/or kV according to patient size, and/or use of iterative reconstruction technique. FINDINGS: HEMORRHAGE: No intracranial hemorrhage. BRAIN: No mass effect or edema. Cortical atrophy, periventricular small vessel disease VENTRICLES: Unremarkable. No hydrocephalus. CALVARIUM: Unremarkable. PARANASAL SINUSES: Unremarkable as visualized. No significant inflammatory changes. MASTOID AIR CELLS: Unremarkable as visualized. No inflammatory changes. OTHER FINDINGS: None. IMPRESSION: No acute intracranial abnormalities. No significant findings to account for the clinical presentation. No significant interval change compared to the prior examination(s).
[2017-06-01] MEDS ORDERED: Sodium Chloride 0.9% 1,000 ML IV SCH (22:15)
[2017-06-01 22:50] LABS: BASO # 0.02 K/mm3 (0.0-2.0); BASO % 0.2 % (0.0-3.0); EOS # 0.1 (0.0-0.7); EOS % 0.9 % (1.5-5.0); GRAN # 6.83 (1.4-6.5); GRAN % 72.7 % (50.0-68.0); HEMOGLOBIN 11.6 gm/dL (12.0-16.0); LYMPH # 1.7 (1.2-3.4); LYMPH % 17.9 % (22.0-35.0); MEAN CELL VOLUME 99.7 fL (80.0-105.0); MEAN CORPUSCULAR HEMOGLOBIN 33.9 pg (25.0-35.0); MEAN PLATELET VOLUME 9.6 fl (7.0-11.0); MONO # 0.8 (0.1-0.6); MONO % 8.3 % (1.0-6.0); PLATELET COUNT 138 10^3/uL (120.0-450.0); RBC 3.42 10^6/uL (3.5-6.1); RED CELL DISTRIBUTION WIDTH 13.8 % (11.5-14.5); WHITE BLOOD COUNT 9.4 10^3/ul (4.5-11.0)
[2017-06-01 22:55] LABS: ALB/GLOB RATIO 0.6 (1.1-1.8); ALBUMIN 2.1 g/dL (3.0-4.8); ALT/SGPT 31 U/L (7-56); AST/SGOT 40 U/L (15-39); BLOOD UREA NITROGEN 15 mg/dL (7-21); CALCIUM 7.8 mg/dL (8.4-10.5); GFR AFRICAN-AMERICAN > 60; GFR NON-AFRICAN AMERICAN > 60; MAGNESIUM 1.7 mg/dL (1.7-2.2)
[2017-06-01 22:58] LABS: VENOUS BLOOD GAS PO2 62 mm/Hg (30-55)
[2017-06-01 22:59] LABS: VENOUS BLOOD GAS BASE EXCESS 0.5 mmol/L (0.0-2.0)
[2017-06-01 23:05] LABS: TROPONIN I < 0.01 ng/mL
[2017-06-01 23:17] LABS: INR 1.28 (0.93-1.08); PARTIAL THROMBOPLASTIN TIME 34.4 Seconds (23.7-30.8); PROTHROMBIN TIME 13.8 Seconds (9.9-11.8)
[2017-06-02 00:04] LABS: HEMOGLOBIN 11.9 gm/dL (12.0-16.0); MEAN CELL VOLUME 101.2 fL (80.0-105.0); MEAN CORPUSCULAR HEMOGLOBIN 34.5 pg (25.0-35.0); MEAN CORPUSCULAR HGB CONC 34.1 g/dl (31.0-37.0); RBC 3.45 10^6/uL (3.5-6.1); RED CELL DISTRIBUTION WIDTH 13.9 % (11.5-14.5); WHITE BLOOD COUNT 9.2 10^3/ul (4.5-11.0)
[2017-06-02 00:05] LABS: MEAN PLATELET VOLUME 9.6 fl (7.0-11.0)
[2017-06-02] MEDS: Piperacillin/Tazobact 3.375 gm 100 ML IVPB SCH ×4 (00:09→17:51)
[2017-06-02 05:34] LABS: ARTERIAL BLOOD GAS HCO3 21.3 mmol/L (21-28); ARTERIAL BLOOD GAS HEMOGLOBIN 11.5 g/dL (11.7-17.4); ARTERIAL BLOOD GAS O2 CAPACITY 15.7 mL/dl (16-24); ARTERIAL BLOOD GAS O2 CONTENT 14.9 ML/dl (15-23); ARTERIAL BLOOD GAS O2 SAT 95.2 % (95-98); ARTERIAL BLOOD GAS PCO2 30 mm/Hg (35-45); ARTERIAL BLOOD GAS PH 7.46 (7.35-7.45); ARTERIAL BLOOD GAS TCO2 22.2 mmol.L (22-28)
[2017-06-02] MEDS: Dextrose 5%/0.9% NS 1,000 ML IV SCH ×2 (05:41→15:14)
[2017-06-02 06:12] LABS: VENOUS BLOOD GAS BASE EXCESS -1.8 mmol/L (0.0-2.0); VENOUS BLOOD GAS PO2 29 mm/Hg (30-55); VENOUS BLOOD PH 7.36 (7.32-7.43)
[2017-06-02 06:18] LABS: BASO # 0.03 K/mm3 (0.0-2.0); BASO % 0.3 % (0.0-3.0); EOS # 0.1 (0.0-0.7); EOS % 0.9 % (1.5-5.0); GRAN # 7.19 (1.4-6.5); GRAN % 68.3 % (50.0-68.0); LYMPH # 2.2 (1.2-3.4); LYMPH % 20.5 % (22.0-35.0); MEAN CELL VOLUME 101.1 fL (80.0-105.0); MEAN CORPUSCULAR HEMOGLOBIN 33.4 pg (25.0-35.0); MEAN CORPUSCULAR HGB CONC 33.1 g/dl (31.0-37.0); MEAN PLATELET VOLUME 9.4 fl (7.0-11.0); MONO # 1.1 (0.1-0.6); PLATELET COUNT 148 10^3/uL (120.0-450.0); RBC 3.59 10^6/uL (3.5-6.1); RED CELL DISTRIBUTION WIDTH 13.9 % (11.5-14.5); WHITE BLOOD COUNT 10.5 10^3/ul (4.5-11.0)
[2017-06-02 06:23] LABS: ALB/GLOB RATIO 0.6 (1.1-1.8); ALBUMIN 2.3 g/dL (3.0-4.8); ALT/SGPT 32 U/L (7-56); AST/SGOT 46 U/L (15-39); BLOOD UREA NITROGEN 14 mg/dL (7-21); CALCIUM 8.1 mg/dL (8.4-10.5); GFR AFRICAN-AMERICAN > 60; GFR NON-AFRICAN AMERICAN > 60; MAGNESIUM 1.9 mg/dL (1.7-2.2)
[2017-06-02 06:33] LABS: INR 1.2 (0.93-1.08); PARTIAL THROMBOPLASTIN TIME 33.6 Seconds (23.7-30.8)
[2017-06-02 06:35] LABS: TROPONIN I < 0.01 ng/mL
[2017-06-02] MEDS ORDERED: Metoprolol 1 mg/ml Inj IVP ONE (06:40)
--- NOTE | 2017-06-02 07:30 | CP.PCM.PN ---
<Delma Buenrostro - Last Filed: 06/02/17 09:58> Subjective - Date & Time of Evaluation Date of Evaluation: 06/02/17 Time of Evaluation: 07:27 - Subjective Subjective: ICU Progress Note Patient seen and examined at bedside. Overnight patient was agitated and was given ativan and Haldol. This am she continue to be agitated and tachycardic. She is not answering questions appropriately, A&O x 0. ROS could not be obtained. Objective - Vital Signs/Intake and Output Vital Signs (last 24 hours): Temp Pulse Resp BP Pulse Ox 97.4 F L 146 H 35 H 130/100 H 93 L 06/02/17 00:01 06/02/17 06:54 06/02/17 00:01 06/02/17 06:54 06/02/17 00:01 - Medications Medications: Current Medications Famotidine (Pepcid) 20 mg PO 1000,2200 ALF Last Admin: 06/01/17 10:19 Dose: 20 mg Heparin Sodium/Sodium Chloride (Heparin 51876 Units/250ml 1/2 Normal Saline) 25 ,000 units in 250 mls @ 11.333 mls/hr IV .Q22H4M PRN; Protocol; 18 UNITS/KG/HR PRN Reason: ADJUST RATE PER PROTOCOL Last Admin: 05/31/17 21:50 Dose: 13 units/kg/hr, 8.185 mls/hr Piperacillin Sod/Tazobactam Sod (Zosyn 3.375 In Ns 100ml) 100 mls @ 200 mls/hr IVPB Q6 ALF PRN Reason: Protocol Stop: 06/09/17 00:01 Last Admin: 06/02/17 05:07 Dose: 200 mls/hr Dextrose/Sodium Chloride (Dextrose 5%/0.9% Ns 1000 Ml) 1,000 mls @ 100 mls/hr IV .Q10H ALF Last Admin: 06/02/17 05:41 Dose: 100 mls/hr Dexmedetomidine HCl (Precedex 4 Mcg/Ml (100 Ml)) 400 mcg in 100 mls @ 3.198 mls /hr IV .Q24H PRN; Protocol; 0.2 MCG/KG/HR PRN Reason: Agitation Potassium Chloride (Potassium Chloride 10 Meq/100 Ml) 10 meq in 100 mls @ 100 mls/hr IVPB Q2H ALF Stop: 06/02/17 10:14 Lorazepam (Ativan) 1 mg IVP Q6H PRN; Protocol PRN Reason: Anxiety Last Admin: 06/01/17 06:53 Dose: 1 mg Metoprolol Tartrate (Lopressor) 100 mg PO BID ALF Last Admin: 06/01/17 10:19 Dose: 100 mg Pantoprazole Sodium (Protonix Inj) 40 mg IVP DAILY [facility] - Labs Labs: 06/02/17 05:30 06/02/17 05:30 PT 13.0 Seconds (9.9-11.8) H 06/02/17 05:30 INR 1.20 (0.93-1.08) H 06/02/17 05:30 APTT 33.6 Seconds (23.7-30.8) H 06/02/17 05:30 - Constitutional Appears: Agitated - Head Exam Head Exam: ATRAUMATIC, NORMAL INSPECTION, NORMOCEPHALIC - Eye Exam Eye Exam: Normal appearance Pupil Exam: NORMAL ACCOMODATION - ENT Exam ENT Exam: Mucous Membranes Moist - Respiratory Exam Respiratory Exam: Clear to Ausculation Bilateral, NORMAL BREATHING PATTERN. absent: Rales, Rhonchi, Wheezes - Cardiovascular Exam Cardiovascular Exam: Tachycardia, REGULAR RHYTHM, +S1, +S2. absent: Gallop, Rubs, Murmur - GI/Abdominal Exam GI & Abdominal Exam: Distended, Normal Bowel Sounds. absent: Rigid, Tenderness , Mass, Rebound - Extremities Exam Extremities Exam: Normal Inspection. absent: Calf Tenderness, Pedal Edema - Neurological Exam Neurological Exam: Alert, Awake, CN II-XII Intact. absent: Oriented x3 - Psychiatric Exam Psychiatric exam: Agitated - Skin Skin Exam: Dry, Normal Color, Warm Assessment and Plan - Assessment and Plan (Free Text) Assessment: This is a 61Y F with PMH of HTN and alcoholism admitted for abdominal pain and weight loss found to have ovarian mass (suspicious for ovarian cancer), ascites and atrial fibrillation. Patient has become into hypoactive delirium during her stay and was transferred to ICU for concern of airway protection. Plan: Neuro: Patient now in mixed delirium Precedex IV started Consider antipsychotic prn Repeat head CT negative Brain MRI unremarkable No CO2 retention on ABG, Ammonia level low LP was negative Continue neuro checks Continue re-orientation, keep blinds open Neuro consulted-recs appreciated CV: Tachycardic at this time Will start precedex to see if secondary to agitation v a.fib If tachycardia continues- consider starting cardizem drip Will restart Heparin drip, no thrombocytopenia Cardio consulted-recs appreciated Pulm: Comfortable on NC Maintain spO2>90% HOB elevated Aspiration precaution GI: NPO at this time except meds Passed bedside swallow GI consulted- recs appreciated IR consulted for paracentesis- will obtain fluid analysis for malignancy Neprho: Will continue to monitor electrolytes and will replace as needed Monitor I&O Maintain euvolemia Heme: Hgb stable- no overt signs of bleeding Pt thrombocytopenia resolved- work up pending Ovarian Ca with + CEA ad Ca-125 Heme/onc consulted- recs appreciated Demo Event Specialist consulted ID: Maintain normothermia Lactate increased to 2.2 from 1.8 ID consulted- recs appreciated PCT pending On Zosyn Endo: Maintain euglycemia GI ppx: Protonix DVT ppx: Heparin drip Case seen, discussed and reviewed with attending Sukhi Buenrostro PGY2 <Jono Garcia - Last Filed: 06/02/17 14:22> Objective - Vital Signs/Intake and Output Vital Signs (last 24 hours): Temp Pulse Resp BP Pulse Ox 97.6 F 93 H 24 101/56 L 96 06/02/17 06:00 06/02/17 13:40 06/02/17 13:40 06/02/17 14:00 06/02/17 13:40 Intake and Output: 06/02/17 06/02/17 06:59 18:59 Intake Total 1700 6 Balance 1700 6 - Medications Medications: Current Medications Heparin Sodium/Sodium Chloride (Heparin 64306 Units/250ml 1/2 Normal Saline) 25 ,000 units in 250 mls @ 11.333 mls/hr IV .Q22H4M PRN; Protocol; 18 UNITS/KG/HR PRN Reason: ADJUST RATE PER PROTOCOL Last Admin: 06/02/17 09:37 Dose: 13 units/kg/hr, 8.185 mls/hr Piperacillin Sod/Tazobactam Sod (Zosyn 3.375 In Ns 100ml) 100 mls @ 200 mls/hr IVPB Q6 ALF PRN Reason: Protocol Stop: 06/09/17 00:01 Last Admin: 06/02/17 12:02 Dose: 200 mls/hr Dextrose/Sodium Chloride (Dextrose 5%/0.9% Ns 1000 Ml) 1,000 mls @ 100 mls/hr IV .Q10H ALF Last Admin: 06/02/17 05:41 Dose: 100 mls/hr Dexmedetomidine HCl (Precedex 4 Mcg/Ml (100 Ml)) 400 mcg in 100 mls @ 3.198 mls /hr IV .Q24H PRN; Protocol; 0.2 MCG/KG/HR PRN Reason: Agitation Last Titration: 06/02/17 11:00 Dose: 0 mcg/kg/hr, 0 mls/hr Lactulose (Enulose) 20 gm PO Q6H ALF Stop: 06/02/17 18:31 Metoprolol Tartrate (Lopressor) 100 mg PO BID [facility] Last Admin: 06/02/17 09:40 Dose: 100 mg Pantoprazole Sodium (Protonix Inj) 40 mg IVP DAILY [facility] Last Admin: 06/02/17 09:40 Dose: 40 mg - Labs Labs: 06/02/17 05:30 06/02/17 05:30 PT 13.0 Seconds (9.9-11.8) H 06/02/17 05:30 INR 1.20 (0.93-1.08) H 06/02/17 05:30 APTT 33.6 Seconds (23.7-30.8) H 06/02/17 05:30 Attending/Attestation - Attestation I have personally seen and examined this patient.: Yes I have fully participated in the care of the patient.: Yes I have reviewed all pertinent clinical information, including history, physical exam and plan: Yes Notes (Text): 06/02/17 14:15 61 yo female with hospital/critical illness delirium. No c02 retention, no nh3 elevation, CSF clear reportedly, on abx (zosyn/vanco) and euvolemic. CTH no acute pathology. Afebrile and no leukocytosis. Was agitated overnight received haldol and ativan x 1. Will STOP ATIVAN, start precedex and haldol PRN for agitation. Will restart heparin drip. HR imrpoved on Precedex and bb PO, no need for cardizem drip for VR control. Optimization of circadian and sleep patterns, frequent re-orientation. GI prophylaxis ccm time 40 min
[2017-06-02] MEDS: Dexmedetomidine HCl 4mcg/ml 400 MCG/100 ML BOTTLE IV PRN (08:48)
[2017-06-02] MEDS ORDERED: Vancomycin 1gm in NS 250ml 1 GM/250 ML BAG IVPB STA (09:07)
[2017-06-02] MEDS ORDERED: diltiaZEM IVPB 100mg in NS 100 ML IV PRN (09:08)
[2017-06-02] MEDS: Heparin25000 units/250ml 1/2NS 25,000 UNITS/250 ML BAG IV PRN (09:37)
--- NOTE | 2017-06-02 10:10 | CP.PCM.PN ---
Subjective - Date & Time of Evaluation Date of Evaluation: 06/02/17 Time of Evaluation: 07:00 - Subjective Subjective: CONFUSED Objective - Vital Signs/Intake and Output Vital Signs (last 24 hours): Temp Pulse Resp BP Pulse Ox 97.6 F 102 H 39 H 128/90 93 L 06/02/17 06:00 06/02/17 09:40 06/02/17 06:00 06/02/17 09:40 06/02/17 06:00 Intake and Output: 06/02/17 06/02/17 06:59 18:59 Intake Total 1700 Balance 1700 - Medications Medications: Current Medications Famotidine (Pepcid) 20 mg PO 1000,2200 ALF Last Admin: 06/01/17 10:19 Dose: 20 mg Heparin Sodium/Sodium Chloride (Heparin 64789 Units/250ml 1/2 Normal Saline) 25 ,000 units in 250 mls @ 11.333 mls/hr IV .Q22H4M PRN; Protocol; 18 UNITS/KG/HR PRN Reason: ADJUST RATE PER PROTOCOL Last Admin: 06/02/17 09:37 Dose: 13 units/kg/hr, 8.185 mls/hr Piperacillin Sod/Tazobactam Sod (Zosyn 3.375 In Ns 100ml) 100 mls @ 200 mls/hr IVPB Q6 ALF PRN Reason: Protocol Stop: 06/09/17 00:01 Last Admin: 06/02/17 05:07 Dose: 200 mls/hr Dextrose/Sodium Chloride (Dextrose 5%/0.9% Ns 1000 Ml) 1,000 mls @ 100 mls/hr IV .Q10H ALF Last Admin: 06/02/17 05:41 Dose: 100 mls/hr Dexmedetomidine HCl (Precedex 4 Mcg/Ml (100 Ml)) 400 mcg in 100 mls @ 3.198 mls /hr IV .Q24H PRN; Protocol; 0.2 MCG/KG/HR PRN Reason: Agitation Last Admin: 06/02/17 08:48 Dose: 0.2 mcg/kg/hr, 3.198 mls/hr Potassium Chloride (Potassium Chloride 10 Meq/100 Ml) 10 meq in 100 mls @ 100 mls/hr IVPB Q2H ALF Stop: 06/02/17 10:14 Last Admin: 07/02/17 09:36 Dose: 100 mls/hr Vancomycin HCl (Vancomycin 1gm) 1 gm in 250 mls @ 167 mls/hr IVPB STAT STA PRN Reason: Protocol Stop: 06/02/17 10:36 Last Admin: 06/02/17 09:39 Dose: 167 mls/hr diltiaZEM IVPB 100mg in NS (Cardizem 100mg In Ns) 100 mls @ 5 mls/hr IV .Q20H PRN; Protocol; 5 MG/HR PRN Reason: TITRATE PER MD ORDER Metoprolol Tartrate (Lopressor) 100 mg PO BID [facility] Last Admin: 06/02/17 09:40 Dose: 100 mg Pantoprazole Sodium (Protonix Inj) 40 mg IVP DAILY [facility] Last Admin: 06/02/17 09:40 Dose: 40 mg - Labs Labs: 06/02/17 05:30 06/02/17 05:30 PT 13.0 Seconds (9.9-11.8) H 06/02/17 05:30 INR 1.20 (0.93-1.08) H 06/02/17 05:30 APTT 33.6 Seconds (23.7-30.8) H 06/02/17 05:30 - Constitutional Appears: Unkempt, Cachectic - Head Exam Head Exam: NORMAL INSPECTION - Eye Exam Eye Exam: EOMI, Normal appearance, PERRL Pupil Exam: NORMAL ACCOMODATION - ENT Exam ENT Exam: Normal Exam - Neck Exam Neck Exam: Full ROM, Normal Inspection. absent: Lymphadenopathy - Respiratory Exam Respiratory Exam: Clear to Ausculation Bilateral, NORMAL BREATHING PATTERN - Cardiovascular Exam Cardiovascular Exam: REGULAR RHYTHM, +S1, +S2. absent: Murmur - GI/Abdominal Exam GI & Abdominal Exam: Soft, Normal Bowel Sounds. absent: Tenderness - Rectal Exam Rectal Exam: NORMAL INSPECTION - Exam Exam: Circumcision, NORMAL INSPECTION External exam: NORMAL EXTERNAL EXAM Speculum exam: NORMAL SPECULUM EXAM Bimanual exam: NORMAL BIMANUAL EXAM - Extremities Exam Extremities Exam: Full ROM, Normal Capillary Refill, Normal Inspection. 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
--- NOTE | 2017-06-02 11:45 | CP.PCM.PN ---
Subjective - Date & Time of Evaluation Date of Evaluation: 06/02/17 Time of Evaluation: 08:30 - Subjective Subjective: Confused Objective - Vital Signs/Intake and Output Vital Signs (last 24 hours): Temp Pulse Resp BP Pulse Ox 97.6 F 102 H 39 H 128/90 93 L 06/02/17 06:00 06/02/17 09:40 06/02/17 06:00 06/02/17 09:40 06/02/17 06:00 Intake and Output: 06/02/17 06/02/17 06:59 18:59 Intake Total 1700 Balance 1700 - Medications Medications: Current Medications Heparin Sodium/Sodium Chloride (Heparin 58594 Units/250ml 1/2 Normal Saline) 25 ,000 units in 250 mls @ 11.333 mls/hr IV .Q22H4M PRN; Protocol; 18 UNITS/KG/HR PRN Reason: ADJUST RATE PER PROTOCOL Last Admin: 06/02/17 09:37 Dose: 13 units/kg/hr, 8.185 mls/hr Piperacillin Sod/Tazobactam Sod (Zosyn 3.375 In Ns 100ml) 100 mls @ 200 mls/hr IVPB Q6 ALF PRN Reason: Protocol Stop: 06/09/17 00:01 Last Admin: 06/02/17 05:07 Dose: 200 mls/hr Dextrose/Sodium Chloride (Dextrose 5%/0.9% Ns 1000 Ml) 1,000 mls @ 100 mls/hr IV .Q10H [facility] Last Admin: 06/02/17 05:41 Dose: 100 mls/hr Dexmedetomidine HCl (Precedex 4 Mcg/Ml (100 Ml)) 400 mcg in 100 mls @ 3.198 mls /hr IV .Q24H PRN; Protocol; 0.2 MCG/KG/HR PRN Reason: Agitation Last Admin: 06/02/17 08:48 Dose: 0.2 mcg/kg/hr, 3.198 mls/hr diltiaZEM IVPB 100mg in NS (Cardizem 100mg In Ns) 100 mls @ 5 mls/hr IV .Q20H PRN; Protocol; 5 MG/HR PRN Reason: TITRATE PER MD ORDER Metoprolol Tartrate (Lopressor) 100 mg PO BID [facility] Last Admin: 06/02/17 09:40 Dose: 100 mg Pantoprazole Sodium (Protonix Inj) 40 mg IVP DAILY [facility] Last Admin: 06/02/17 09:40 Dose: 40 mg - Labs Labs: 06/02/17 05:30 06/02/17 05:30 PT 13.0 Seconds (9.9-11.8) H 06/02/17 05:30 INR 1.20 (0.93-1.08) H 06/02/17 05:30 APTT 33.6 Seconds (23.7-30.8) H 06/02/17 05:30 - Constitutional Appears: Confused - Head Exam Head Exam: ATRAUMATIC - Respiratory Exam Respiratory Exam: Clear to Ausculation Bilateral, NORMAL BREATHING PATTERN - Cardiovascular Exam Cardiovascular Exam: Irregular Rhythm - GI/Abdominal Exam GI & Abdominal Exam: Normal Bowel Sounds - Extremities Exam Extremities Exam: Normal Inspection Assessment and Plan - Assessment and Plan (Free Text) Assessment: Altered mental status eval in progress--CT head negative,Spinal tap resuts pending Atrial fibrillation As per Cardiology Ascites Fluid analysis requested Ovarian mass elevated CA125 and CEA Review with [facility]/Oncology care plan
--- NOTE | 2017-06-02 13:31 | RAD ---
HISTORY: Altered mental status. COMPARISON: 06/01/2017. FINDINGS: LUNGS: No active pulmonary disease. PLEURA: No significant pleural effusion identified, no pneumothorax apparent. CARDIOVASCULAR: No radiographic findings to suggest acute or significant cardiovascular disease. OSSEOUS STRUCTURES: No significant abnormalities. VISUALIZED UPPER ABDOMEN: Normal. OTHER FINDINGS: None. IMPRESSION: No active disease. No significant interval change compared to the prior examination(s).
[2017-06-02 20:40] LABS: BLOOD UREA NITROGEN 13 mg/dL (7-21); CALCIUM 7.8 mg/dL (8.4-10.5); GFR AFRICAN-AMERICAN > 60; GFR NON-AFRICAN AMERICAN > 60
[2017-06-03] MEDS: Piperacillin/Tazobact 3.375 gm 100 ML IVPB SCH ×5 (01:12→17:22)
[2017-06-03] MEDS: Dextrose 5%/0.9% NS 1,000 ML IV SCH (04:49)
[2017-06-03 05:49] LABS: HEMOGLOBIN 11.8 gm/dL (12.0-16.0); MEAN CELL VOLUME 102.3 fL (80.0-105.0); MEAN CORPUSCULAR HEMOGLOBIN 34.5 pg (25.0-35.0); MEAN CORPUSCULAR HGB CONC 33.7 g/dl (31.0-37.0); MEAN PLATELET VOLUME 9.9 fl (7.0-11.0); RBC 3.42 10^6/uL (3.5-6.1); WHITE BLOOD COUNT 12.8 10^3/ul (4.5-11.0)
[2017-06-03 06:25] LABS: ALB/GLOB RATIO 0.6 (1.1-1.8); ALBUMIN 2.2 g/dL (3.0-4.8); ALT/SGPT 33 U/L (7-56); AST/SGOT 44 U/L (15-39); BLOOD UREA NITROGEN 13 mg/dL (7-21); GFR AFRICAN-AMERICAN > 60; GFR NON-AFRICAN AMERICAN > 60
--- NOTE | 2017-06-03 09:09 | CP.PCM.PN ---
Subjective - Date & Time of Evaluation Date of Evaluation: 06/03/17 Time of Evaluation: 07:00 - Subjective Subjective: still confused but better Objective - Vital Signs/Intake and Output Vital Signs (last 24 hours): Temp Pulse Resp BP Pulse Ox 97.9 F 119 H 25 H 142/59 L 94 L 06/03/17 08:36 06/03/17 08:30 06/03/17 08:30 06/03/17 08:00 06/03/17 08:30 Intake and Output: 06/03/17 06/03/17 06:59 18:59 Intake Total 37 Balance 37 - Medications Medications: Current Medications Heparin Sodium/Sodium Chloride (Heparin 49757 Units/250ml 1/2 Normal Saline) 25 ,000 units in 250 mls @ 11.333 mls/hr IV .Q22H4M PRN; Protocol; 18 UNITS/KG/HR PRN Reason: ADJUST RATE PER PROTOCOL Last Titration: 06/03/17 00:28 Dose: 11 units/kg/hr, 6.925 mls/hr Piperacillin Sod/Tazobactam Sod (Zosyn 3.375 In Ns 100ml) 100 mls @ 200 mls/hr IVPB Q6 ALF PRN Reason: Protocol Stop: 06/09/17 00:01 Last Admin: 06/03/17 05:50 Dose: 200 mls/hr Dextrose/Sodium Chloride (Dextrose 5%/0.9% Ns 1000 Ml) 1,000 mls @ 100 mls/hr IV .Q10H [facility] Last Admin: 06/03/17 04:49 Dose: 100 mls/hr Dexmedetomidine HCl (Precedex 4 Mcg/Ml (100 Ml)) 400 mcg in 100 mls @ 3.198 mls /hr IV .Q24H PRN; Protocol; 0.2 MCG/KG/HR PRN Reason: Agitation Last Titration: 06/02/17 11:00 Dose: 0 mcg/kg/hr, 0 mls/hr Lactulose (Enulose) 30 gm PO BID [facility] Metoprolol Tartrate (Lopressor) 100 mg PO BID [facility] Last Admin: 06/02/17 17:50 Dose: 100 mg Pantoprazole Sodium (Protonix Inj) 40 mg IVP DAILY [facility] Last Admin: 06/02/17 09:40 Dose: 40 mg - Labs Labs: 06/03/17 05:30 06/03/17 05:30 PT 13.0 Seconds (9.9-11.8) H 06/02/17 05:30 INR 1.20 (0.93-1.08) H 06/02/17 05:30 APTT 71.7 Seconds (23.7-30.8) H* 06/03/17 05:30 - Constitutional Appears: Well - Head Exam Head Exam: ATRAUMATIC, NORMAL INSPECTION, NORMOCEPHALIC - Eye Exam Eye Exam: EOMI, Normal appearance, PERRL Pupil Exam: NORMAL ACCOMODATION, PERRL - ENT Exam ENT Exam: Mucous Membranes Moist, Normal Exam - Neck Exam Neck Exam: Full ROM, Normal Inspection. absent: Lymphadenopathy - Respiratory Exam Respiratory Exam: Clear to Ausculation Bilateral, NORMAL BREATHING PATTERN - Cardiovascular Exam Cardiovascular Exam: REGULAR RHYTHM, +S1, +S2. absent: Murmur - GI/Abdominal Exam GI & Abdominal Exam: Soft, Normal Bowel Sounds. absent: Tenderness - Rectal Exam Rectal Exam: NORMAL INSPECTION - Exam Exam: Circumcision, NORMAL INSPECTION External exam: NORMAL EXTERNAL EXAM Speculum exam: NORMAL SPECULUM EXAM Bimanual exam: NORMAL BIMANUAL EXAM - Extremities Exam Extremities Exam: Full ROM, Normal Capillary Refill, Normal Inspection. absent : Joint Swelling, Pedal Edema - Back Exam Back Exam: NORMAL INSPECTION - Neurological Exam Neurological Exam: Alert, Awake, CN II-XII Intact, Normal Gait, Oriented x3 - Psychiatric Exam Psychiatric exam: Normal Affect, Normal Mood - Skin Skin Exam: Dry, Intact, Normal Color, Warm Assessment and Plan (1) Encephalitis Status: Acute (2) SIRS (systemic inflammatory response syndrome) Status: Acute (3) Ksyn-J-rqijxm-D-aspartate (NMDA) receptor encephalitis Status: Acute (4) Ascites due to alcoholic cirrhosis Status: Acute - Assessment and Plan (Free Text) Plan: on zosyn awaiting ascites work up awaiting NDMA WORK UP OVARIAN MASS WORK UP
[2017-06-03] MEDS ORDERED: Dexmedetomidine Hydrochloride 100 mcg/ml (2ML) IVP ONE (09:20)
--- NOTE | 2017-06-03 10:14 | CP.PCM.PN ---
<Elizabeth Huertas - Last Filed: 06/03/17 10:14> Subjective - Date & Time of Evaluation Date of Evaluation: 06/03/17 Time of Evaluation: 08:45 - Subjective Subjective: S&E at bedside, chart reviewed. Patient lethargic and mental status remains altered. Tolerated Lactulose had 2 large BM yesterday and small one this am. No bleeding reported. Objective - Vital Signs/Intake and Output Vital Signs (last 24 hours): Temp Pulse Resp BP Pulse Ox 97.9 F 103 H 25 H 121/61 94 L 06/03/17 08:36 06/03/17 09:53 06/03/17 08:30 06/03/17 09:53 06/03/17 08:30 Intake and Output: 06/03/17 06/03/17 06:59 18:59 Intake Total 37 Balance 37 - Medications Medications: Current Medications Heparin Sodium/Sodium Chloride (Heparin 30513 Units/250ml 1/2 Normal Saline) 25 ,000 units in 250 mls @ 11.333 mls/hr IV .Q22H4M PRN; Protocol; 18 UNITS/KG/HR PRN Reason: ADJUST RATE PER PROTOCOL Last Titration: 06/03/17 00:28 Dose: 11 units/kg/hr, 6.925 mls/hr Piperacillin Sod/Tazobactam Sod (Zosyn 3.375 In Ns 100ml) 100 mls @ 200 mls/hr IVPB Q6 ALF PRN Reason: Protocol Stop: 06/09/17 00:01 Last Admin: 06/03/17 05:50 Dose: 200 mls/hr Dextrose/Sodium Chloride (Dextrose 5%/0.9% Ns 1000 Ml) 1,000 mls @ 100 mls/hr IV .Q10H [facility] Last Admin: 06/03/17 04:49 Dose: 100 mls/hr Dexmedetomidine HCl (Precedex 4 Mcg/Ml (100 Ml)) 400 mcg in 100 mls @ 3.198 mls /hr IV .Q24H PRN; Protocol; 0.2 MCG/KG/HR PRN Reason: Agitation Last Titration: 06/02/17 11:00 Dose: 0 mcg/kg/hr, 0 mls/hr Lactulose (Enulose) 30 gm PO BID [facility] Last Admin: 06/03/17 09:52 Dose: 30 gm Metoprolol Tartrate (Lopressor) 100 mg PO BID [facility] Last Admin: 06/03/17 09:53 Dose: 100 mg Pantoprazole Sodium (Protonix Inj) 40 mg IVP DAILY [facility] Last Admin: 06/03/17 09:53 Dose: 40 mg Quetiapine Fumarate (Seroquel) 50 mg PO [facility] PRN Reason: Protocol - Labs Labs: 06/03/17 05:30 06/03/17 05:30 PT 13.0 Seconds (9.9-11.8) H 06/02/17 05:30 INR 1.20 (0.93-1.08) H 06/02/17 05:30 APTT 71.7 Seconds (23.7-30.8) H* 06/03/17 05:30 - Constitutional Appears: Confused - Eye Exam Eye Exam: Normal appearance. absent: Scleral icterus - ENT Exam ENT Exam: Mucous Membranes Moist - Neck Exam Neck Exam: Normal Inspection - Respiratory Exam Respiratory Exam: Decreased Breath Sounds, NORMAL BREATHING PATTERN. absent: Respiratory Distress - Cardiovascular Exam Cardiovascular Exam: +S1, +S2 - GI/Abdominal Exam GI & Abdominal Exam: Distended, Soft, Normal Bowel Sounds. absent: Guarding, Tenderness, Rebound - Extremities Exam Extremities Exam: absent: Calf Tenderness, Pedal Edema - Neurological Exam Neurological Exam: Altered - Skin Skin Exam: Dry, Warm Assessment and Plan - Assessment and Plan (Free Text) Assessment: ASSESSMENT: Altered Mental Status, unknown etiology, ? hepatic encephalapathy, alcohol induced, deliruim Abnormal ct scan: large sold mass right adnexa, ? Ovarian mass Ascites malignant VS Cirrhosis Chronic ETOH Weight loss Atrial Fibrillation HTN PLAN: NPO, IVF decrease Lacutlose to 30 gm BID, emperically for Hepatic encephalopathy on Heparin drip per protocol continue PPI monitor H/H pending eval for paracentesis, spoke to Dr. Rosen SENIOR PROPERTY ACCOUNTANT/oncology FU as per ICU team Seen and discussed with Dr. Argueta. <Stephen Argueta V - Last Filed: 06/03/17 23:46> Objective - Vital Signs/Intake and Output Vital Signs (last 24 hours): Temp Pulse Resp BP Pulse Ox 97.9 F 107 H 29 H 140/90 100 06/03/17 18:00 06/03/17 22:00 06/03/17 18:40 06/03/17 17:45 06/03/17 14:00 Intake and Output: 06/03/17 06/04/17 18:59 06:59 Intake Total 1867 150 Output Total 375 Balance 1492 150 - Medications Medications: Current Medications Folic Acid (Folic Acid) 1 mg PO DAILY [facility] Heparin Sodium/Sodium Chloride (Heparin 47582 Units/250ml 1/2 Normal Saline) 25 ,000 units in 250 mls @ 11.333 mls/hr IV .Q22H4M PRN; Protocol; 18 UNITS/KG/HR PRN Reason: ADJUST RATE PER PROTOCOL Last Admin: 06/03/17 22:56 Dose: 11 units/kg/hr, 6.925 mls/hr Piperacillin Sod/Tazobactam Sod (Zosyn 3.375 In Ns 100ml) 100 mls @ 200 mls/hr IVPB Q6 ALF PRN Reason: Protocol Stop: 06/09/17 00:01 Last Admin: 06/03/17 17:22 Dose: 200 mls/hr Dextrose/Sodium Chloride (Dextrose 5%/0.9% Ns 1000 Ml) 1,000 mls @ 100 mls/hr IV .Q10H [facility] Last Admin: 06/03/17 04:49 Dose: 100 mls/hr Dexmedetomidine HCl (Precedex 4 Mcg/Ml (100 Ml)) 400 mcg in 100 mls @ 3.198 mls /hr IV .Q24H PRN; Protocol; 0.2 MCG/KG/HR PRN Reason: Agitation Last Admin: 06/03/17 12:29 Dose: 0.2 mcg/kg/hr, 3.198 mls/hr Metoprolol Tartrate (Lopressor) 100 mg PO BID [facility] Last Admin: 06/03/17 17:23 Dose: 100 mg Pantoprazole Sodium (Protonix Inj) 40 mg IVP DAILY [facility] Last Admin: 06/03/17 09:53 Dose: 40 mg Quetiapine Fumarate (Seroquel) 50 mg PO HS [facility] PRN Reason: Protocol Last Admin: 06/03/17 23:18 Dose: Not Given Thiamine HCl (Vitamin B1 Tab) 100 mg PO DAILY [facility] Last Admin: 06/03/17 13:23 Dose: 100 mg - Labs Labs: 06/03/17 05:30 06/03/17 05:30 PT 13.0 Seconds (9.9-11.8) H 06/02/17 05:30 INR 1.20 (0.93-1.08) H 06/02/17 05:30 APTT 63.0 Seconds (23.7-30.8) H 06/03/17 22:33 Attending/Attestation - Attestation I have personally seen and examined this patient.: Yes I have fully participated in the care of the patient.: Yes I have reviewed all pertinent clinical information, including history, physical exam and plan: Yes Notes (Text): This
--- NOTE | 2017-06-03 10:48 | CP.PCM.PN ---
<Daya Mojica - Last Filed: 06/03/17 16:10> Subjective - Date & Time of Evaluation Date of Evaluation: 06/03/17 Time of Evaluation: 10:50 - Subjective Subjective: PG2 neurology progress note for Dr Shook. Patient seen, and examined at bed side. Patient appears confused, not able to answer any questions, asking for water. No acute overnight events as per nurse. Objective - Vital Signs/Intake and Output Vital Signs (last 24 hours): Temp Pulse Resp BP Pulse Ox 97.9 F 108 H 25 H 121/61 94 L 06/03/17 08:36 06/03/17 10:00 06/03/17 08:30 06/03/17 09:53 06/03/17 08:30 Intake and Output: 06/03/17 06/03/17 06:59 18:59 Intake Total 37 Balance 37 - Medications Medications: Current Medications Heparin Sodium/Sodium Chloride (Heparin 66331 Units/250ml 1/2 Normal Saline) 25 ,000 units in 250 mls @ 11.333 mls/hr IV .Q22H4M PRN; Protocol; 18 UNITS/KG/HR PRN Reason: ADJUST RATE PER PROTOCOL Last Titration: 06/03/17 00:28 Dose: 11 units/kg/hr, 6.925 mls/hr Piperacillin Sod/Tazobactam Sod (Zosyn 3.375 In Ns 100ml) 100 mls @ 200 mls/hr IVPB Q6 ALF PRN Reason: Protocol Stop: 06/09/17 00:01 Last Admin: 06/03/17 05:50 Dose: 200 mls/hr Dextrose/Sodium Chloride (Dextrose 5%/0.9% Ns 1000 Ml) 1,000 mls @ 100 mls/hr IV .Q10H [facility] Last Admin: 06/03/17 04:49 Dose: 100 mls/hr Dexmedetomidine HCl (Precedex 4 Mcg/Ml (100 Ml)) 400 mcg in 100 mls @ 3.198 mls /hr IV .Q24H PRN; Protocol; 0.2 MCG/KG/HR PRN Reason: Agitation Last Titration: 06/02/17 11:00 Dose: 0 mcg/kg/hr, 0 mls/hr Lactulose (Enulose) 30 gm PO BID [facility] Last Admin: 06/03/17 09:52 Dose: 30 gm Metoprolol Tartrate (Lopressor) 100 mg PO BID [facility] Last Admin: 06/03/17 09:53 Dose: 100 mg Pantoprazole Sodium (Protonix Inj) 40 mg IVP DAILY [facility] Last Admin: 06/03/17 09:53 Dose: 40 mg Quetiapine Fumarate (Seroquel) 50 mg PO HS [facility] PRN Reason: Protocol - Labs Labs: 06/03/17 05:30 06/03/17 05:30 PT 13.0 Seconds (9.9-11.8) H 06/02/17 05:30 INR 1.20 (0.93-1.08) H 06/02/17 05:30 APTT 71.7 Seconds (23.7-30.8) H* 06/03/17 05:30 - Constitutional Appears: No Acute Distress, Unkempt, Older Than Stated Age, Confused, Cachectic , Chronically Ill - Head Exam Head Exam: ATRAUMATIC, NORMOCEPHALIC. absent: NORMAL INSPECTION (+ frontal bulge) - Eye Exam Eye Exam: EOMI, Normal appearance. absent: Scleral icterus Additional comments: Pupils reactive to light, and equal. - ENT Exam ENT Exam: Mucous Membranes Moist - Neck Exam Neck Exam: Full ROM, Normal Inspection. absent: Meningismus, Tenderness - Respiratory Exam Respiratory Exam: Decreased Breath Sounds (at the bases. ), NORMAL BREATHING PATTERN. absent: Rales, Rhonchi, Wheezes, Respiratory Distress, Stridor - Cardiovascular Exam Cardiovascular Exam: Tachycardia, Irregular Rhythm, +S1, +S2 - GI/Abdominal Exam GI & Abdominal Exam: Soft, Tenderness (diffusely. ), Normal Bowel Sounds. absent: Distended, Rigid - Extremities Exam Extremities Exam: absent: Pedal Edema Additional comments: Right upper extremity with ecchymosis. + ischemic changes in the extremities. - Neurological Exam Neurological Exam: Alert, Awake. absent: Oriented x3 Additional comments: Patient is able to move all her extremities grossly. Unable to assess CN due to mental status. Patient is incoherent and is unable to fallow commands. - Psychiatric Exam Psychiatric exam: Flat Affect - Skin Skin Exam: Abrasion, Dry, Rash, Warm Additional comments: Ecchymosis on the right upper extremities. Assessment and Plan - Assessment and Plan (Free Text) Assessment: Patient is a 61 y/o with PMH of chronic etoh abuse and htn whom presented with abdominal with diarrhea and was found to have ovarian mass suspicious for malignancy, and ascites. Patient's hospital course was complicated by AMS and is currently in ICU. During the course of hospitalization patient had CT x2 with no acute ischemic finding. Patient also had MRI with chronic ischemic changes. No growth on hodgson cultures. Patient had LP on 06/01/17. Furthermore, patient developed RVR afib and is currently on heparin drip. Patient is being followed by multiple service. Neuro following for AMS. 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 Plan: 1) CSF not consistent with encephalitis, protein and cell counts were normal. 2) EEG shows b/l cerebral dysfunction 3) MRI w/ and W/O contrasts showed no abnormalities. 4) Delirium precautions for AMS, and avoid night time interruptions. 5) Monitor and correct electrolytes 6) started Thiamine 100 mg daily 7) seroquel 50 mg qhs for agitation 8) f/u with oncology for adnexal mass, and elevated CEA. 9) Will order paraneoplastic syndrome work up ( CRMP-5, MEL-1, MEL 2, Anti-yo , anti-ma, anti-hu antiphospholipid ab) 10) Avoid sedatives Patient seen, examined and case discussed with Dr Shook. <Chao Shook - Last Filed: 06/05/17 10:55> Objective - Vital Signs/Intake and Output Vital Signs (last 24 hours): Temp Pulse Resp BP Pulse Ox 90.7 F L 53 L 36 H 81/47 L 100 06/05/17 10:30 06/05/17 10:30 06/05/17 10:30 06/05/17 10:30 06/05/17 10:30 Intake and Output: 06/05/17 06/05/17 06:59 18:59 Intake Total 1200 11 Output Total 200 Balance 1000 11 - Medications Medications: Current Medications Folic Acid (Folic Acid) 1 mg PO DAILY [facility] Last Admin: 06/05/17 09:27 Dose: Not Given Dextrose/Sodium Chloride (Dextrose 5%/0.9% Ns 1000 Ml) 1,000 mls @ 100 mls/hr IV .Q10H [facility] Last Admin: 06/05/17 09:26 Dose: 100 mls/hr Piperacillin Sod/Tazobactam Sod (Zosyn 3.375 In Ns 100ml) 100 mls @ 200 mls/hr IVPB Q6 [facility] PRN Reason: Protocol Stop: 06/10/17 12:01 Pantoprazole Sodium (Protonix Inj) 40 mg IVP DAILY [facility] Last Admin: 06/05/17 09:24 Dose: 40 mg Quetiapine Fumarate (Seroquel) 50 mg PO HS [facility] PRN Reason: Protocol Last Admin: 06/04/17 22:00 Dose: Not Given Thiamine HCl (Vitamin B1 Tab) 100 mg PO DAILY [facility] Last Admin: 06/05/17 09:25 Dose: Not Given - Labs Labs: 06/05/17 05:30 06/05/17 09:00 PT 13.0 Seconds (9.9-11.8) H 06/02/17 05:30 INR 1.20 (0.93-1.08) H 06/02/17 05:30 APTT 39.7 Seconds (23.7-30.8) H 06/05/17 04:00 Attending/Attestation - Attestation I have personally seen and examined this patient.: Yes I have fully participated in the care of the patient.: Yes I have reviewed all pertinent clinical information, including history, physical exam and plan: Yes
[2017-06-03] MEDS: Dexmedetomidine HCl 4mcg/ml 400 MCG/100 ML BOTTLE IV PRN (12:29)
--- NOTE | 2017-06-03 13:28 | CP.PCM.PN ---
<GIRMA OTOOLE - Last Filed: 06/03/17 15:56> Subjective - Date & Time of Evaluation Date of Evaluation: 06/03/17 Time of Evaluation: 13:21 - Subjective Subjective: Patient seen and examined at bedside. No events overnight. Pt had a large green BM overnight. Pt is alert, but not oriented to time, person and place. Objective - Vital Signs/Intake and Output Vital Signs (last 24 hours): Temp Pulse Resp BP Pulse Ox 97.9 F 108 H 25 H 121/61 94 L 06/03/17 08:36 06/03/17 10:00 06/03/17 08:30 06/03/17 09:53 06/03/17 08:30 Intake and Output: 06/03/17 06/03/17 06:59 18:59 Intake Total 37 94 Balance 37 94 - Medications Medications: Current Medications Heparin Sodium/Sodium Chloride (Heparin 73138 Units/250ml 1/2 Normal Saline) 25 ,000 units in 250 mls @ 11.333 mls/hr IV .Q22H4M PRN; Protocol; 18 UNITS/KG/HR PRN Reason: ADJUST RATE PER PROTOCOL Last Titration: 06/03/17 00:28 Dose: 11 units/kg/hr, 6.925 mls/hr Piperacillin Sod/Tazobactam Sod (Zosyn 3.375 In Ns 100ml) 100 mls @ 200 mls/hr IVPB Q6 ALF PRN Reason: Protocol Stop: 06/09/17 00:01 Last Admin: 06/03/17 05:50 Dose: 200 mls/hr Dextrose/Sodium Chloride (Dextrose 5%/0.9% Ns 1000 Ml) 1,000 mls @ 100 mls/hr IV .Q10H [facility] Last Admin: 06/03/17 04:49 Dose: 100 mls/hr Dexmedetomidine HCl (Precedex 4 Mcg/Ml (100 Ml)) 400 mcg in 100 mls @ 3.198 mls /hr IV .Q24H PRN; Protocol; 0.2 MCG/KG/HR PRN Reason: Agitation Last Admin: 06/03/17 12:29 Dose: 0.2 mcg/kg/hr, 3.198 mls/hr Lactulose (Enulose) 30 gm PO BID [facility] Last Admin: 06/03/17 09:52 Dose: 30 gm Metoprolol Tartrate (Lopressor) 100 mg PO BID [facility] Last Admin: 06/03/17 09:53 Dose: 100 mg Pantoprazole Sodium (Protonix Inj) 40 mg IVP DAILY [facility] Last Admin: 06/03/17 09:53 Dose: 40 mg Quetiapine Fumarate (Seroquel) 50 mg PO [facility] PRN Reason: Protocol Thiamine HCl (Vitamin B1 Tab) 100 mg PO DAILY [facility] - Labs Labs: 06/03/17 05:30 06/03/17 05:30 PT 13.0 Seconds (9.9-11.8) H 06/02/17 05:30 INR 1.20 (0.93-1.08) H 06/02/17 05:30 APTT 71.7 Seconds (23.7-30.8) H* 06/03/17 05:30 - Constitutional Appears: No Acute Distress, Agitated - Head Exam Head Exam: ATRAUMATIC, NORMOCEPHALIC - Eye Exam Eye Exam: EOMI, PERRL - ENT Exam ENT Exam: Mucous Membranes Moist, Normal Oropharynx - Neck Exam Neck Exam: Normal Inspection - Respiratory Exam Respiratory Exam: Clear to Ausculation Bilateral - Cardiovascular Exam Cardiovascular Exam: Irregular Rhythm, +S1, +S2 - GI/Abdominal Exam GI & Abdominal Exam: Soft, Tenderness, Normal Bowel Sounds. absent: Guarding, Rebound - Extremities Exam Extremities Exam: absent: Calf Tenderness, Pedal Edema - Neurological Exam Neurological Exam: Awake. absent: Oriented x3 - Psychiatric Exam Psychiatric exam: Agitated - Skin Skin Exam: Dry, Warm Additional comments: ecchymotic lesions noted in BUE. Assessment and Plan - Assessment and Plan (Free Text) Assessment: 61 y.o. F with PMH alcoholism, cirrhosis, ovarian mass, admitted for critical illness delirium, unlikely to be hepatic encephalopathy. Other etiologies to be considered are Wernicke's vs anti-NMDA encephalitis. Will undergo workup to r/ o peritonitis, possibly 2/2 anti-NMDA encephalitis. Pt continues to stay agitated, will avoid benzos; start precedex drip and Seroquel 50mg BID. Plan: Neuro: Patient now in mixed delirium Restart Precedex IV drip Start Seroquel 50 mg BID Will avoid Benzodiazepines and Haldol Repeat head CT negative Brain MRI unremarkable No CO2 retention on ABG, Ammonia level low LP was negative fpr wbcs, neg for growth x1d CSF cryptococcal Ag neg Continue neuro checks Continue re-orientation, keep blinds open Neuro consulted-recs appreciated CV: HR 94-119, irregular, afib C/w Metoprolol C/w Heparin drip, no thrombocytopenia, will cont to monitor platelets. Will hold heparin for IR procedure. Cardio consulted-recs appreciated Pulm: Comfortable on NC Maintain spO2>90% HOB elevated Aspiration precaution GI: NPO at this time except meds Passed bedside swallow GI consulted- recs appreciated. C/w Lactulose 30 mg BID. IR consulted for paracentesis- will obtain fluid analysis to r/o anti-NMDA encephalitis Neprho: Will continue to monitor electrolytes and will replace as needed Monitor I&O Maintain euvolemia Heme: Hgb stable- no overt signs of bleeding Ovarian Ca with + CEA ad Ca-125 Heme/onc consulted- recs appreciated Branch Rental Manager consulted ID: afebrile, no leukocytosis, Maintain normothermia Lactate increased to 2.2 from 1.8 ID consulted- recs appreciated PCT 0.24 C/w Zosyn Endo: Maintain euglycemia GI ppx: Protonix DVT ppx: Heparin drip Case seen, discussed and reviewed with attending. Girma Otoole, PGY1 <Jono Garcia - Last Filed: 06/03/17 16:27> Objective - Vital Signs/Intake and Output Vital Signs (last 24 hours): Temp Pulse Resp BP Pulse Ox 97.9 F 108 H 25 H 121/61 94 L 06/03/17 08:36 06/03/17 10:00 06/03/17 08:30 06/03/17 09:53 06/03/17 08:30 Intake and Output: 06/03/17 06/03/17 06:59 18:59 Intake Total 37 94 Balance 37 94 - Medications Medications: Current Medications Heparin Sodium/Sodium Chloride (Heparin 16258 Units/250ml 1/2 Normal Saline) 25 ,000 units in 250 mls @ 11.333 mls/hr IV .Q22H4M PRN; Protocol; 18 UNITS/KG/HR PRN Reason: ADJUST RATE PER PROTOCOL Last Titration: 06/03/17 00:28 Dose: 11 units/kg/hr, 6.925 mls/hr Piperacillin Sod/Tazobactam Sod (Zosyn 3.375 In Ns 100ml) 100 mls @ 200 mls/hr IVPB Q6 [facility] PRN Reason: Protocol Stop: 06/09/17 00:01 Last Admin: 06/03/17 13:24 Dose: 200 mls/hr Dextrose/Sodium Chloride (Dextrose 5%/0.9% Ns 1000 Ml) 1,000 mls @ 100 mls/hr IV .Q10H [facility] Last Admin: 06/03/17 04:49 Dose: 100 mls/hr Dexmedetomidine HCl (Precedex 4 Mcg/Ml (100 Ml)) 400 mcg in 100 mls @ 3.198 mls /hr IV .Q24H PRN; Protocol; 0.2 MCG/KG/HR PRN Reason: Agitation Last Admin: 06/03/17 12:29 Dose: 0.2 mcg/kg/hr, 3.198 mls/hr Lactulose (Enulose) 30 gm PO BID [facility] Last Admin: 06/03/17 09:52 Dose: 30 gm Metoprolol Tartrate (Lopressor) 100 mg PO BID [facility] Last Admin: 06/03/17 09:53 Dose: 100 mg Pantoprazole Sodium (Protonix Inj) 40 mg IVP DAILY [facility] Last Admin: 06/03/17 09:53 Dose: 40 mg Quetiapine Fumarate (Seroquel) 50 mg PO HS [facility] PRN Reason: Protocol Thiamine HCl (Vitamin B1 Tab) 100 mg PO DAILY [facility] Last Admin: 06/03/17 13:23 Dose: 100 mg - Labs Labs: 06/03/17 05:30 06/03/17 05:30 PT 13.0 Seconds (9.9-11.8) H 06/02/17 05:30 INR 1.20 (0.93-1.08) H 06/02/17 05:30 APTT 71.7 Seconds (23.7-30.8) H* 06/03/17 05:30 Attending/Attestation - Attestation I have personally seen and examined this patient.: Yes I have fully participated in the care of the patient.: Yes I have reviewed all pertinent clinical information, including history, physical exam and plan: Yes Notes (Text): 06/03/17 16:23 61 yo with hospital delirium vs alcohol withdrawal. Will continue with frequent re-orientation, optimizing circadian and sleep patterns. Seroquel 50 mg qhs. Precedex drip if agitated. avoiding benzos and opiates. IR assessed patient-not enough ascitic fluid for safe paracenthesis. ID is following patient. continue IVF, aspiration precautions. TAC for afib. bb for HR control. ccm time 40 min
--- NOTE | 2017-06-03 15:59 | CP.PCM.PN ---
Subjective - Date & Time of Evaluation Date of Evaluation: 06/03/17 Time of Evaluation: 15:00 - Subjective Subjective: EEG REPORT: CONDITION OF THIS RECORDING: DROWSY DIAGNOSIS: EVALUATE FOR SEIZURE MEDICATIONS:l REVIEWED BY NURSE'S RECONCILIATION INTERPRETATION: THIS IS A 16 CHANNEL INTERNATIONAL RECORDING. THE BACKEND OF THIS TRACING WAS COMPOSED OF 5-6CYCLES PER SECOND. THERE WAS SMALL AMOUNT OF BETA ACTIVITY OF 16- 20 CPS IN THE RECORDING AND INCREASE AMOUNT OF THETA ACTIVITY OF 5-7 CPS SEEN IN THIS TRACING. DROWSINESS WAS CHARACTERIZED BY MIXED BETA AND THETA ACTIVITIES. THERE WAS SOME MILD DELTA ACTIVITY. SLEEP WAS CHARACTERIZED BY VERTEX TRANSIENT WAVE, SLEEP SPINDLES, AND B/L SLOWING. PHOTIC STIMULATION SHOWED NO CHANGE IN THE TRACING. NO PAROXYSMAL ACTIVITY NOTED IN THIS RECORDING. EMG ARTIFICAT WAS SEEN. CONCLUSION: THIS IS AN ABNORMAL EEG SHOWING B/L SLOWING THROUGHOUT THE RECORDING CONSISTENT WITH B/L CEREBRAL DYSFUNCTION. NO SEIZURE ACTIVITY. Ilya OLVERA MD Objective - Vital Signs/Intake and Output Vital Signs (last 24 hours): Temp Pulse Resp BP Pulse Ox 97.9 F 108 H 25 H 121/61 94 L 06/03/17 08:36 06/03/17 10:00 06/03/17 08:30 06/03/17 09:53 06/03/17 08:30 Intake and Output: 06/03/17 06/03/17 06:59 18:59 Intake Total 37 94 Balance 37 94 - Medications Medications: Current Medications Heparin Sodium/Sodium Chloride (Heparin 81431 Units/250ml 1/2 Normal Saline) 25 ,000 units in 250 mls @ 11.333 mls/hr IV .Q22H4M PRN; Protocol; 18 UNITS/KG/HR PRN Reason: ADJUST RATE PER PROTOCOL Last Titration: 06/03/17 00:28 Dose: 11 units/kg/hr, 6.925 mls/hr Piperacillin Sod/Tazobactam Sod (Zosyn 3.375 In Ns 100ml) 100 mls @ 200 mls/hr IVPB Q6 [facility] PRN Reason: Protocol Stop: 06/09/17 00:01 Last Admin: 06/03/17 13:24 Dose: 200 mls/hr Dextrose/Sodium Chloride (Dextrose 5%/0.9% Ns 1000 Ml) 1,000 mls @ 100 mls/hr IV .Q10H [facility] Last Admin: 06/03/17 04:49 Dose: 100 mls/hr Dexmedetomidine HCl (Precedex 4 Mcg/Ml (100 Ml)) 400 mcg in 100 mls @ 3.198 mls /hr IV .Q24H PRN; Protocol; 0.2 MCG/KG/HR PRN Reason: Agitation Last Admin: 06/03/17 12:29 Dose: 0.2 mcg/kg/hr, 3.198 mls/hr Lactulose (Enulose) 30 gm PO BID [facility] Last Admin: 06/03/17 09:52 Dose: 30 gm Metoprolol Tartrate (Lopressor) 100 mg PO BID [facility] Last Admin: 06/03/17 09:53 Dose: 100 mg Pantoprazole Sodium (Protonix Inj) 40 mg IVP DAILY [facility] Last Admin: 06/03/17 09:53 Dose: 40 mg Quetiapine Fumarate (Seroquel) 50 mg PO HS [facility] PRN Reason: Protocol Thiamine HCl (Vitamin B1 Tab) 100 mg PO DAILY [facility] Last Admin: 06/03/17 13:23 Dose: 100 mg - Labs Labs: 06/03/17 05:30 06/03/17 05:30 PT 13.0 Seconds (9.9-11.8) H 06/02/17 05:30 INR 1.20 (0.93-1.08) H 06/02/17 05:30 APTT 71.7 Seconds (23.7-30.8) H* 06/03/17 05:30
[2017-06-03] MEDS: Heparin25000 units/250ml 1/2NS 25,000 UNITS/250 ML BAG IV PRN (22:56)
[2017-06-04] MEDS: Piperacillin/Tazobact 3.375 gm 100 ML IVPB SCH ×2 (00:14→06:25)
[2017-06-04] MEDS: Dextrose 5%/0.9% NS 1,000 ML IV SCH ×3 (01:14→17:12)
[2017-06-04 05:36] LABS: HEMOGLOBIN 10.3 gm/dL (12.0-16.0); MEAN CELL VOLUME 102.3 fL (80.0-105.0); MEAN CORPUSCULAR HGB CONC 33.2 g/dl (31.0-37.0); MEAN PLATELET VOLUME 9.9 fl (7.0-11.0); RBC 3.03 10^6/uL (3.5-6.1); RED CELL DISTRIBUTION WIDTH 14.2 % (11.5-14.5); WHITE BLOOD COUNT 9.4 10^3/ul (4.5-11.0)
[2017-06-04 05:45] LABS: ALB/GLOB RATIO 0.6 (1.1-1.8); ALBUMIN 1.9 g/dL (3.0-4.8); ALT/SGPT 34 U/L (7-56); AST/SGOT 31 U/L (15-39); BLOOD UREA NITROGEN 12 mg/dL (7-21); GFR AFRICAN-AMERICAN > 60; GFR NON-AFRICAN AMERICAN > 60
[2017-06-04] MEDS: Dexmedetomidine HCl 4mcg/ml 400 MCG/100 ML BOTTLE IV PRN ×2 (06:42→13:54)
--- NOTE | 2017-06-04 09:37 | CP.PCM.PN ---
Subjective - Date & Time of Evaluation Date of Evaluation: 06/04/17 Time of Evaluation: 07:00 - Subjective Subjective: still confused Objective - Vital Signs/Intake and Output Vital Signs (last 24 hours): Temp Pulse Resp BP Pulse Ox 96.6 F L 110 H 19 153/119 H 98 06/04/17 06:00 06/04/17 06:00 06/04/17 06:00 06/04/17 06:00 06/04/17 06:00 Intake and Output: 06/04/17 06/04/17 06:59 18:59 Intake Total 250 45 Balance 250 45 - Medications Medications: Current Medications Folic Acid (Folic Acid) 1 mg PO DAILY [facility] Heparin Sodium/Sodium Chloride (Heparin 44954 Units/250ml 1/2 Normal Saline) 25 ,000 units in 250 mls @ 11.333 mls/hr IV .Q22H4M PRN; Protocol; 18 UNITS/KG/HR PRN Reason: ADJUST RATE PER PROTOCOL Last Titration: 06/04/17 07:05 Dose: 13 units/kg/hr, 8.185 mls/hr Piperacillin Sod/Tazobactam Sod (Zosyn 3.375 In Ns 100ml) 100 mls @ 200 mls/hr IVPB Q6 ALF PRN Reason: Protocol Stop: 06/09/17 00:01 Last Admin: 06/04/17 06:25 Dose: 200 mls/hr Dextrose/Sodium Chloride (Dextrose 5%/0.9% Ns 1000 Ml) 1,000 mls @ 100 mls/hr IV .Q10H [facility] Last Admin: 06/04/17 08:18 Dose: Not Given Dexmedetomidine HCl (Precedex 4 Mcg/Ml (100 Ml)) 400 mcg in 100 mls @ 3.198 mls /hr IV .Q24H PRN; Protocol; 0.2 MCG/KG/HR PRN Reason: Agitation Last Admin: 06/04/17 06:42 Dose: 0.5 mcg/kg/hr, 7.995 mls/hr Metoprolol Tartrate (Lopressor) 100 mg PO BID [facility] Last Admin: 06/03/17 17:23 Dose: 100 mg Pantoprazole Sodium (Protonix Inj) 40 mg IVP DAILY [facility] Last Admin: 06/03/17 09:53 Dose: 40 mg Quetiapine Fumarate (Seroquel) 50 mg PO HS [facility] PRN Reason: Protocol Last Admin: 06/03/17 23:18 Dose: Not Given Thiamine HCl (Vitamin B1 Tab) 100 mg PO DAILY [facility] Last Admin: 06/03/17 13:23 Dose: 100 mg - Labs Labs: 06/04/17 04:45 06/04/17 04:45 PT 13.0 Seconds (9.9-11.8) H 06/02/17 05:30 INR 1.20 (0.93-1.08) H 06/02/17 05:30 APTT 44.1 Seconds (23.7-30.8) H 06/04/17 04:45 - Constitutional Appears: Well - Head Exam Head Exam: ATRAUMATIC, NORMAL INSPECTION, NORMOCEPHALIC - Eye Exam Eye Exam: EOMI, Normal appearance, PERRL Pupil Exam: NORMAL ACCOMODATION, PERRL - ENT Exam ENT Exam: Mucous Membranes Moist, Normal Exam - Neck Exam Neck Exam: Full ROM, Normal Inspection. absent: Lymphadenopathy - Respiratory Exam Respiratory Exam: Clear to Ausculation Bilateral, NORMAL BREATHING PATTERN - Cardiovascular Exam Cardiovascular Exam: REGULAR RHYTHM, +S1, +S2. absent: Murmur - GI/Abdominal Exam GI & Abdominal Exam: Soft, Normal Bowel Sounds. absent: Tenderness - Rectal Exam Rectal Exam: NORMAL INSPECTION - Exam Exam: Circumcision, NORMAL INSPECTION External exam: NORMAL EXTERNAL EXAM Speculum exam: NORMAL SPECULUM EXAM Bimanual exam: NORMAL BIMANUAL EXAM - Extremities Exam Extremities Exam: Full ROM, Normal Capillary Refill, Normal Inspection. absent : Joint Swelling, Pedal Edema - Back Exam Back Exam: NORMAL INSPECTION - Neurological Exam Neurological Exam: Alert, Awake, CN II-XII Intact, Normal Gait, Oriented x3 - Psychiatric Exam Psychiatric exam: Normal Affect, Normal Mood - Skin Skin Exam: Dry, Intact, Normal Color, Warm Assessment and Plan (1) Encephalitis Status: Acute (2) SIRS (systemic inflammatory response syndrome) Status: Acute (3) Bboo-F-ekbnjd-D-aspartate (NMDA) receptor encephalitis Status: Acute (4) Ascites due to alcoholic cirrhosis Status: Acute - Assessment and Plan (Free Text) Plan: on zosyn day number 5 awaiting ascites work up cell count etc etiology of confusion ? work up for NMDA ovarian mass etoh liver ds all cultures neg Lp negative so far
--- NOTE | 2017-06-04 10:26 | CP.PCM.PN ---
Subjective - Date & Time of Evaluation Date of Evaluation: 06/04/17 Time of Evaluation: 08:45 - Subjective Subjective: . Seen for evaluation in CCU. Remains in wrist restraints. Remain sedated. Appears comfortable at present. Heart rate controlled in the 80s and 90s. Awaits transfer to telemetry. Mental status remains markedly altered. Etiology unclear. Objective - Vital Signs/Intake and Output Vital Signs (last 24 hours): Temp Pulse Resp BP Pulse Ox 96.6 F L 110 H 19 153/119 H 98 06/04/17 06:00 06/04/17 06:00 06/04/17 06:00 06/04/17 06:00 06/04/17 06:00 Intake and Output: 06/04/17 06/04/17 06:59 18:59 Intake Total 250 45 Balance 250 45 - Medications Medications: Current Medications Folic Acid (Folic Acid) 1 mg PO DAILY [facility] Heparin Sodium/Sodium Chloride (Heparin 03451 Units/250ml 1/2 Normal Saline) 25 ,000 units in 250 mls @ 11.333 mls/hr IV .Q22H4M PRN; Protocol; 18 UNITS/KG/HR PRN Reason: ADJUST RATE PER PROTOCOL Last Titration: 06/04/17 07:05 Dose: 13 units/kg/hr, 8.185 mls/hr Piperacillin Sod/Tazobactam Sod (Zosyn 3.375 In Ns 100ml) 100 mls @ 200 mls/hr IVPB Q6 ALF PRN Reason: Protocol Stop: 06/09/17 00:01 Last Admin: 06/04/17 06:25 Dose: 200 mls/hr Dextrose/Sodium Chloride (Dextrose 5%/0.9% Ns 1000 Ml) 1,000 mls @ 100 mls/hr IV .Q10H [facility] Last Admin: 06/04/17 08:18 Dose: Not Given Dexmedetomidine HCl (Precedex 4 Mcg/Ml (100 Ml)) 400 mcg in 100 mls @ 3.198 mls /hr IV .Q24H PRN; Protocol; 0.2 MCG/KG/HR PRN Reason: Agitation Last Admin: 06/04/17 06:42 Dose: 0.5 mcg/kg/hr, 7.995 mls/hr Metoprolol Tartrate (Lopressor) 100 mg PO BID [facility] Last Admin: 06/03/17 17:23 Dose: 100 mg Pantoprazole Sodium (Protonix Inj) 40 mg IVP DAILY [facility] Last Admin: 06/03/17 09:53 Dose: 40 mg Quetiapine Fumarate (Seroquel) 50 mg PO HS [facility] PRN Reason: Protocol Last Admin: 06/03/17 23:18 Dose: Not Given Thiamine HCl (Vitamin B1 Tab) 100 mg PO DAILY [facility] Last Admin: 06/03/17 13:23 Dose: 100 mg - Labs Labs: 06/04/17 04:45 06/04/17 04:45 PT 13.0 Seconds (9.9-11.8) H 06/02/17 05:30 INR 1.20 (0.93-1.08) H 06/02/17 05:30 APTT 44.1 Seconds (23.7-30.8) H 06/04/17 04:45 - Constitutional Appears: Other (sedated, in 2 point restraints) - Neck Exam Additional comments: . No JVD - Respiratory Exam Respiratory Exam: Rhonchi (bilateral) - Cardiovascular Exam Cardiovascular Exam: Irregular Rhythm - GI/Abdominal Exam GI & Abdominal Exam: Soft, Normal Bowel Sounds Assessment and Plan (1) Cirrhosis Status: Acute (2) Ovarian mass, right Status: Acute (3) New onset atrial fibrillation Status: Acute - Assessment and Plan (Free Text) Assessment: . Impression: * Atrial fibrillation, now with controlled rate. * Ovarian mass, suspicious for malignancy * altered mental status, workup in progress Plan: . Recommendations: * Continue supportive care. * Continue current rate control therapy. * Continue anticoagulation for now. * Await completion of neurologic workup. * If her mental status does not improve, will need to discuss with family the options of palliative care and hospice. * Discussed with Dr. Rosen and nursing staff.
[2017-06-04 18:29] LABS: SOURCE: CEREBROSPINAL FLUID
[2017-06-04 19:16] LABS: HSV 1 DNA Not Detected (Not Detected); HSV 2 DNA Not Detected (Not Detected); SPECIMEN SOURCE CSF
--- NOTE | 2017-06-05 00:38 | CP.PCM.PN ---
Subjective - Date & Time of Evaluation Date of Evaluation: 06/04/17 - Subjective Subjective: this patient was seen evaluated earlier. Patient's daughter was at bedside at the time of remains confused patient had maintenance evaluation Objective - Vital Signs/Intake and Output Vital Signs (last 24 hours): Temp Pulse Resp BP Pulse Ox 98 F 64 10 L 97/85 L 99 06/04/17 20:00 06/04/17 22:00 06/04/17 22:00 06/04/17 22:00 06/04/17 22:00 Intake and Output: 06/04/17 06/05/17 18:59 06:59 Intake Total 1445 0 Output Total 250 Balance 1195 0 - Medications Medications: Current Medications Folic Acid (Folic Acid) 1 mg PO DAILY [facility] Last Admin: 06/04/17 10:34 Dose: 1 mg Heparin Sodium/Sodium Chloride (Heparin 96628 Units/250ml 1/2 Normal Saline) 25 ,000 units in 250 mls @ 11.333 mls/hr IV .Q22H4M PRN; Protocol; 18 UNITS/KG/HR PRN Reason: ADJUST RATE PER PROTOCOL Last Titration: 06/04/17 15:30 Dose: 10 units/kg/hr, 6.296 mls/hr Dextrose/Sodium Chloride (Dextrose 5%/0.9% Ns 1000 Ml) 1,000 mls @ 100 mls/hr IV .Q10H [facility] Last Admin: 06/04/17 17:12 Dose: Not Given Dexmedetomidine HCl (Precedex 4 Mcg/Ml (100 Ml)) 400 mcg in 100 mls @ 3.198 mls /hr IV .Q24H PRN; Protocol; 0.2 MCG/KG/HR PRN Reason: Agitation Last Titration: 06/04/17 21:27 Dose: 0.75 mcg/kg/hr, 12 mls/hr Metoprolol Tartrate (Lopressor) 100 mg PO BID [facility] Last Admin: 06/04/17 17:13 Dose: Not Given Pantoprazole Sodium (Protonix Inj) 40 mg IVP DAILY [facility] Last Admin: 06/04/17 10:00 Dose: 40 mg Quetiapine Fumarate (Seroquel) 50 mg PO HS [facility] PRN Reason: Protocol Last Admin: 06/03/17 23:18 Dose: Not Given Thiamine HCl (Vitamin B1 Tab) 100 mg PO DAILY [facility] Last Admin: 06/03/17 13:23 Dose: 100 mg - Labs Labs: 06/04/17 04:45 06/04/17 04:45 PT 13.0 Seconds (9.9-11.8) H 06/02/17 05:30 INR 1.20 (0.93-1.08) H 06/02/17 05:30 APTT 49.0 Seconds (23.7-30.8) H 06/04/17 21:15 - Constitutional Appears: Agitated, Confused - Head Exam Head Exam: ATRAUMATIC, NORMOCEPHALIC - Eye Exam Eye Exam: EOMI Pupil Exam: PERRL - ENT Exam ENT Exam: Mucous Membranes Moist - Neck Exam Neck Exam: Full ROM. absent: Lymphadenopathy - Respiratory Exam Respiratory Exam: NORMAL BREATHING PATTERN. absent: Rales - Cardiovascular Exam Cardiovascular Exam: REGULAR RHYTHM, +S1, +S2. absent: JVD - GI/Abdominal Exam GI & Abdominal Exam: Distended, Normal Bowel Sounds. absent: Tenderness Additional comments: has ascites present Assessment and Plan - Assessment and Plan (Free Text) Assessment: Altered Mental Status, unknown etiology, ? hepatic encephalapathy, alcohol induced, deliruim. Patient did receive lactulose twice daily for 2 days [id number] Abnormal ct scan: large sold mass right adnexa, ? Ovarian mass Ascites malignant VS Cirrhosis Chronic ETOH Weight loss Atrial Fibrillation HTN Plan: PLAN: NPO, patient did receive 2lactulose twice daily for. We will discontinue it continue PPI monitor H/H pending eval for paracentesis, spoke to Dr. Rosen [employer] ST[employer] W[employer]ER/oncology FU as per ICU team Seen and discussed with Dr. Argueta. hodan
[2017-06-05 06:25] LABS: BASO # 0.01 K/mm3 (0.0-2.0); BASO % 0.1 % (0.0-3.0); EOS % 0.1 % (1.5-5.0); GRAN # 6.68 (1.4-6.5); GRAN % 74.1 % (50.0-68.0); HEMOGLOBIN 10.7 gm/dL (12.0-16.0); LYMPH # 1.6 (1.2-3.4); LYMPH % 17.4 % (22.0-35.0); MEAN CELL VOLUME 104.1 fL (80.0-105.0); MEAN CORPUSCULAR HEMOGLOBIN 33.4 pg (25.0-35.0); MEAN CORPUSCULAR HGB CONC 32.1 g/dl (31.0-37.0); MEAN PLATELET VOLUME 10.6 fl (7.0-11.0); MONO # 0.8 (0.1-0.6); MONO % 8.3 % (1.0-6.0); PLATELET COUNT 57 10^3/uL (120.0-450.0); RED CELL DISTRIBUTION WIDTH 14.5 % (11.5-14.5)
[2017-06-05 06:48] LABS: ALB/GLOB RATIO 0.5 (1.1-1.8); ALBUMIN 1.8 g/dL (3.0-4.8); ALT/SGPT 30 U/L (7-56); AST/SGOT 29 U/L (15-39); BLOOD UREA NITROGEN 12 mg/dL (7-21); GFR AFRICAN-AMERICAN > 60; GFR NON-AFRICAN AMERICAN > 60
--- NOTE | 2017-06-05 07:56 | CP.PCM.PN ---
<Daya Mojica - Last Filed: 06/05/17 11:55> Subjective - Date & Time of Evaluation Date of Evaluation: 06/05/17 Time of Evaluation: 07:10 - Subjective Subjective: PGY2 neurology progress note for Dr Shook. Patient is still confused, not responsive to verbal commands. Moves with deep chest rub and abdominal palpations. Hypotensive and hypothermic episodes overnight, currently with warming blanket. HR in the 30s. Objective - Vital Signs/Intake and Output Vital Signs (last 24 hours): Temp Pulse Resp BP Pulse Ox 89 F L 54 L 19 88/44 L 99 06/05/17 04:00 06/05/17 06:00 06/05/17 06:00 06/05/17 06:00 06/05/17 06:00 Intake and Output: 06/05/17 06/05/17 06:59 18:59 Intake Total 1200 Output Total 200 Balance 1000 - Medications Medications: Current Medications Folic Acid (Folic Acid) 1 mg PO DAILY [facility] Last Admin: 06/04/17 10:34 Dose: 1 mg Heparin Sodium/Sodium Chloride (Heparin 34329 Units/250ml 1/2 Normal Saline) 25 ,000 units in 250 mls @ 11.333 mls/hr IV .Q22H4M PRN; Protocol; 18 UNITS/KG/HR PRN Reason: ADJUST RATE PER PROTOCOL Last Titration: 06/04/17 15:30 Dose: 10 units/kg/hr, 6.296 mls/hr Dextrose/Sodium Chloride (Dextrose 5%/0.9% Ns 1000 Ml) 1,000 mls @ 100 mls/hr IV .Q10H [facility] Last Admin: 06/04/17 17:12 Dose: Not Given Dexmedetomidine HCl (Precedex 4 Mcg/Ml (100 Ml)) 400 mcg in 100 mls @ 3.198 mls /hr IV .Q24H PRN; Protocol; 0.2 MCG/KG/HR PRN Reason: Agitation Last Titration: 06/04/17 21:27 Dose: 0.75 mcg/kg/hr, 12 mls/hr Metoprolol Tartrate (Lopressor) 100 mg PO BID [facility] Last Admin: 06/04/17 17:13 Dose: Not Given Pantoprazole Sodium (Protonix Inj) 40 mg IVP DAILY [facility] Last Admin: 06/04/17 10:00 Dose: 40 mg Quetiapine Fumarate (Seroquel) 50 mg PO [facility] PRN Reason: Protocol Last Admin: 06/04/17 22:00 Dose: Not Given Thiamine HCl (Vitamin B1 Tab) 100 mg PO DAILY [facility] Last Admin: 06/03/17 13:23 Dose: 100 mg - Labs Labs: 06/05/17 05:30 06/05/17 05:30 PT 13.0 Seconds (9.9-11.8) H 06/02/17 05:30 INR 1.20 (0.93-1.08) H 06/02/17 05:30 APTT 39.7 Seconds (23.7-30.8) H 06/05/17 04:00 - Constitutional Appears: No Acute Distress, Unkempt, Older Than Stated Age, Confused, Chronically Ill - Head Exam Head Exam: ATRAUMATIC - Eye Exam Eye Exam: absent: Conjunctival injection Additional comments: Equal, and reactive to light. - ENT Exam ENT Exam: Mucous Membranes Dry - Neck Exam Neck Exam: Normal Inspection. absent: Meningismus - Respiratory Exam Respiratory Exam: Decreased Breath Sounds (at the bases.). absent: Rales, Rhonchi, Wheezes, Respiratory Distress, Stridor - Cardiovascular Exam Cardiovascular Exam: Bradycardia, Irregular Rhythm, +S1, +S2. absent: Murmur - GI/Abdominal Exam GI & Abdominal Exam: Soft, Tenderness (diffusely. ), Normal Bowel Sounds. absent: Distended, Firm, Guarding - Extremities Exam Extremities Exam: Normal Inspection. absent: Pedal Edema - Neurological Exam Neurological Exam: absent: Alert, Awake, Oriented x3 Additional comments: Patient appears obtunded, not responsive to verbal commands, only wakes up with chest rub and abdominal exam. Unable to examine cranial nerves due to mental status. GCS of 7. - Skin Skin Exam: Abrasion (on the extremities. ), Dry, Erythema, Warm Assessment and Plan - Assessment and Plan (Free Text) Assessment: Patientis a 61 y/o with h/o dementia. depression, alcohol abuse admitted with new onset afib, ovarian mass with elevated CEA and CA125, and AMS with unclear etiology. Neurology following for AMS consistent with toxic encephalitis and hypoactive delirium. S/P LP with normal cell counts, and protein. Plan: 1) f/u work up of paracentesis. 2) Monitor electrolytes and correct accordingly. 3) Episodes of cerebral hypoperfusion, hypothermia and bradycardia due to medication effects. 4) Avoid sedatives, c/w seroquel. Patient seen, examined, case discussed with Dr Boone Guidry. <Chao Shook - Last Filed: 06/05/17 12:13> Objective - Vital Signs/Intake and Output Vital Signs (last 24 hours): Temp Pulse Resp BP Pulse Ox 90.7 F L 53 L 36 H 81/47 L 100 06/05/17 10:30 06/05/17 10:30 06/05/17 10:30 06/05/17 10:30 06/05/17 10:30 Intake and Output: 06/05/17 06/05/17 06:59 18:59 Intake Total 1200 11 Output Total 200 Balance 1000 11 - Medications Medications: Current Medications Folic Acid (Folic Acid) 1 mg PO DAILY [facility] Last Admin: 06/05/17 09:27 Dose: Not Given Dextrose/Sodium Chloride (Dextrose 5%/0.9% Ns 1000 Ml) 1,000 mls @ 100 mls/hr IV .Q10H [facility] Last Admin: 06/05/17 09:26 Dose: 100 mls/hr Piperacillin Sod/Tazobactam Sod (Zosyn 3.375 In Ns 100ml) 100 mls @ 200 mls/hr IVPB Q6 [facility] PRN Reason: Protocol Stop: 06/10/17 12:01 Pantoprazole Sodium (Protonix Inj) 40 mg IVP DAILY [facility] Last Admin: 06/05/17 09:24 Dose: 40 mg Quetiapine Fumarate (Seroquel) 50 mg PO HS [facility] PRN Reason: Protocol Last Admin: 06/04/17 22:00 Dose: Not Given Thiamine HCl (Vitamin B1 Tab) 100 mg PO DAILY [facility] Last Admin: 06/05/17 09:25 Dose: Not Given - Labs Labs: 06/05/17 05:30 06/05/17 09:00 PT 13.0 Seconds (9.9-11.8) H 06/02/17 05:30 INR 1.20 (0.93-1.08) H 06/02/17 05:30 APTT 39.7 Seconds (23.7-30.8) H 06/05/17 04:00 Attending/Attestation - Attestation I have personally seen and examined this patient.: Yes I have fully participated in the care of the patient.: Yes I have reviewed all pertinent clinical information, including history, physical exam and plan: Yes
[2017-06-05] MEDS ORDERED: Sodium Chloride 0.9% 1,000 ML IV STA (08:35)
[2017-06-05] MEDS: Dextrose 5%/0.9% NS 1,000 ML IV SCH ×2 (09:26→23:30)
--- NOTE | 2017-06-05 09:36 | RAD ---
HISTORY: hypothermia COMPARISON: 06/02/2017 FINDINGS: LUNGS: No active pulmonary disease. PLEURA: No significant pleural effusion identified, no pneumothorax apparent. CARDIOVASCULAR: Mild vascular congestion OSSEOUS STRUCTURES: No significant abnormalities. VISUALIZED UPPER ABDOMEN: Normal. OTHER FINDINGS: None. IMPRESSION: Mild vascular congestion
--- NOTE | 2017-06-05 09:45 | CP.PCM.PN ---
Subjective - Date & Time of Evaluation Date of Evaluation: 06/05/17 Time of Evaluation: 08:00 - Subjective Subjective: S& E at bedside, chart reviewed. Patient lethargic, nonverbal. Patient is hypothermic on bearhugger. Have hypotension. Have loose green BM, no melena or BRBPR. No other acute overnight. Objective - Vital Signs/Intake and Output Vital Signs (last 24 hours): Temp Pulse Resp BP Pulse Ox 89 F L 48 L 19 66/44 L 99 06/05/17 04:00 06/05/17 09:24 06/05/17 06:00 06/05/17 09:24 06/05/17 06:00 Intake and Output: 06/05/17 06/05/17 06:59 18:59 Intake Total 1200 11 Output Total 200 Balance 1000 11 - Medications Medications: Current Medications Folic Acid (Folic Acid) 1 mg PO DAILY [facility] Last Admin: 06/05/17 09:27 Dose: Not Given Heparin Sodium/Sodium Chloride (Heparin 83596 Units/250ml 1/2 Normal Saline) 25 ,000 units in 250 mls @ 11.333 mls/hr IV .Q22H4M PRN; Protocol; 18 UNITS/KG/HR PRN Reason: ADJUST RATE PER PROTOCOL Last Titration: 06/04/17 15:30 Dose: 10 units/kg/hr, 6.296 mls/hr Dextrose/Sodium Chloride (Dextrose 5%/0.9% Ns 1000 Ml) 1,000 mls @ 100 mls/hr IV .Q10H [facility] Last Admin: 06/05/17 09:26 Dose: 100 mls/hr Dexmedetomidine HCl (Precedex 4 Mcg/Ml (100 Ml)) 400 mcg in 100 mls @ 3.198 mls /hr IV .Q24H PRN; Protocol; 0.2 MCG/KG/HR PRN Reason: Agitation Last Titration: 06/05/17 07:35 Dose: 0 mcg/kg/hr, 0 mls/hr Metoprolol Tartrate (Lopressor) 100 mg PO BID [facility] Last Admin: 06/05/17 09:24 Dose: Not Given Pantoprazole Sodium (Protonix Inj) 40 mg IVP DAILY [facility] Last Admin: 06/05/17 09:24 Dose: 40 mg Quetiapine Fumarate (Seroquel) 50 mg PO HS [facility] PRN Reason: Protocol Last Admin: 06/04/17 22:00 Dose: Not Given Thiamine HCl (Vitamin B1 Tab) 100 mg PO DAILY [facility] Last Admin: 06/05/17 09:25 Dose: Not Given - Labs Labs: 06/05/17 05:30 06/05/17 05:30 PT 13.0 Seconds (9.9-11.8) H 06/02/17 05:30 INR 1.20 (0.93-1.08) H 06/02/17 05:30 APTT 39.7 Seconds (23.7-30.8) H 06/05/17 04:00 - Constitutional Appears: Chronically Ill - Head Exam Head Exam: NORMAL INSPECTION - Eye Exam Eye Exam: Normal appearance. absent: Scleral icterus - ENT Exam ENT Exam: Mucous Membranes Dry - Neck Exam Neck Exam: Normal Inspection - Respiratory Exam Respiratory Exam: Decreased Breath Sounds, NORMAL BREATHING PATTERN. absent: Respiratory Distress - Cardiovascular Exam Cardiovascular Exam: +S1, +S2 - GI/Abdominal Exam GI & Abdominal Exam: Distended, Soft, Normal Bowel Sounds. absent: Guarding, Tenderness, Rebound - Extremities Exam Extremities Exam: absent: Pedal Edema - Neurological Exam Neurological Exam: Altered - Skin Skin Exam: Dry, Pallor Assessment and Plan - Assessment and Plan (Free Text) Assessment: Assessment: Hypothermia Altered Mental Status, unknown etiology, ? hepatic encephalapathy, alcohol induced, deliruim. Patient did receive lactulose twice daily for [address] scan: large sold mass right adnexa, ? Ovarian mass Ascites malignant VS Cirrhosis Chronic ETOH Weight loss Atrial Fibrillation HTN Plan: PLAN: NPO, patient did receive 2lactulose twice daily for emperic for hepatic encephalopathy , now DC'd continue PPI monitor H/H on heparin drip on Precedex spoke to Dr. 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 Argueta.
[2017-06-05 09:50] LABS: ALB/GLOB RATIO 0.5 (1.1-1.8); ALBUMIN 1.4 g/dL (3.0-4.8); ALT/SGPT 26 U/L (7-56); AST/SGOT 23 U/L (15-39); BLOOD UREA NITROGEN 12 mg/dL (7-21); CALCIUM 7.2 mg/dL (8.4-10.5); GFR AFRICAN-AMERICAN > 60; GFR NON-AFRICAN AMERICAN > 60
--- NOTE | 2017-06-05 10:03 | CP.PCM.PN ---
Subjective - Date & Time of Evaluation Date of Evaluation: 06/05/17 Time of Evaluation: 08:20 - Subjective Subjective: . Seen for followup in CCU. Has become bradycardic and hypotensive. Also hypopneic. Precedex has been discontinued. Atropine and fluid challenge administered. Hemodynamics improved in the short-term. Appears in no distress. Objective - Vital Signs/Intake and Output Vital Signs (last 24 hours): Temp Pulse Resp BP Pulse Ox 89 F L 48 L 19 66/44 L 99 06/05/17 04:00 06/05/17 09:24 06/05/17 06:00 06/05/17 09:24 06/05/17 06:00 Intake and Output: 06/05/17 06/05/17 06:59 18:59 Intake Total 1200 11 Output Total 200 Balance 1000 11 - Medications Medications: Current Medications Folic Acid (Folic Acid) 1 mg PO DAILY [facility] Last Admin: 06/05/17 09:27 Dose: Not Given Heparin Sodium/Sodium Chloride (Heparin 98260 Units/250ml 1/2 Normal Saline) 25 ,000 units in 250 mls @ 11.333 mls/hr IV .Q22H4M PRN; Protocol; 18 UNITS/KG/HR PRN Reason: ADJUST RATE PER PROTOCOL Last Titration: 06/04/17 15:30 Dose: 10 units/kg/hr, 6.296 mls/hr Dextrose/Sodium Chloride (Dextrose 5%/0.9% Ns 1000 Ml) 1,000 mls @ 100 mls/hr IV .Q10H [facility] Last Admin: 06/05/17 09:26 Dose: 100 mls/hr Dexmedetomidine HCl (Precedex 4 Mcg/Ml (100 Ml)) 400 mcg in 100 mls @ 3.198 mls /hr IV .Q24H PRN; Protocol; 0.2 MCG/KG/HR PRN Reason: Agitation Last Titration: 06/05/17 07:35 Dose: 0 mcg/kg/hr, 0 mls/hr Metoprolol Tartrate (Lopressor) 100 mg PO BID [facility] Last Admin: 06/05/17 09:24 Dose: Not Given Pantoprazole Sodium (Protonix Inj) 40 mg IVP DAILY [facility] Last Admin: 06/05/17 09:24 Dose: 40 mg Quetiapine Fumarate (Seroquel) 50 mg PO HS [facility] PRN Reason: Protocol Last Admin: 06/04/17 22:00 Dose: Not Given Thiamine HCl (Vitamin B1 Tab) 100 mg PO DAILY [facility] Last Admin: 06/05/17 09:25 Dose: Not Given - Labs Labs: 06/05/17 05:30 06/05/17 09:00 PT 13.0 Seconds (9.9-11.8) H 06/02/17 05:30 INR 1.20 (0.93-1.08) H 06/02/17 05:30 APTT 39.7 Seconds (23.7-30.8) H 06/05/17 04:00 - Constitutional Appears: Other (sedated, minimally responsive) - Neck Exam Neck Exam: Normal Inspection - Respiratory Exam Additional comments: bilateral rhonchi. - Cardiovascular Exam Cardiovascular Exam: Bradycardia - GI/Abdominal Exam GI & Abdominal Exam: Soft, Normal Bowel Sounds - Extremities Exam Additional comments: no edema. - Neurological Exam Neurological Exam: Altered - Psychiatric Exam Additional comments: sedated. Assessment and Plan (1) Cirrhosis Status: Acute (2) Ovarian mass, right Status: Acute (3) New onset atrial fibrillation Status: Acute - Assessment and Plan (Free Text) Assessment: Impression: * Hemodynamic instability, possibly secondary to progression of metastatic cancer versus adverse reaction to Precedex use. * Altered mental status, etiology still unclear number next ovarian mass, likely metastatic ovarian cancer. * Atrial fibrillation, now bradycardic. Plan: recommendations: * Contacted her daughter, Jazmine, via phone and updated her on her mother's great situation. Advised consideration of DNR/DNI order. Explained again her mother is extremely poor prognosis. She is on her way to the hospital to see her mother make further decisions. * Continue with atropine as needed for heart rate. * Would attempt to avoid intubation. * Continue to withhold Precedex. * Prognosis extremely poor. Comfort care appears most appropriate. Discussed with Dr. Rosen and nursing staff.
--- NOTE | 2017-06-05 10:22 | CP.PCM.PN ---
Subjective - Date & Time of Evaluation Date of Evaluation: 06/05/17 Time of Evaluation: 09:30 - Subjective Subjective: Patient is lethargic, noted to have had hypotensive episodes overnight which improved with discontinuation of Precedex. Objective - Vital Signs/Intake and Output Vital Signs (last 24 hours): Temp Pulse Resp BP Pulse Ox 97.8 F 81 13 101/56 L 100 06/05/17 00:01 06/05/17 02:00 06/05/17 02:00 06/05/17 02:00 06/05/17 02:00 Intake and Output: 06/04/17 06/05/17 18:59 06:59 Intake Total 1445 0 Output Total 250 Balance 1195 0 - Medications Medications: Current Medications Folic Acid (Folic Acid) 1 mg PO DAILY [facility] Last Admin: 06/04/17 10:34 Dose: 1 mg Heparin Sodium/Sodium Chloride (Heparin 38089 Units/250ml 1/2 Normal Saline) 25 ,000 units in 250 mls @ 11.333 mls/hr IV .Q22H4M PRN; Protocol; 18 UNITS/KG/HR PRN Reason: ADJUST RATE PER PROTOCOL Last Titration: 06/04/17 15:30 Dose: 10 units/kg/hr, 6.296 mls/hr Dextrose/Sodium Chloride (Dextrose 5%/0.9% Ns 1000 Ml) 1,000 mls @ 100 mls/hr IV .Q10H [facility] Last Admin: 06/04/17 17:12 Dose: Not Given Dexmedetomidine HCl (Precedex 4 Mcg/Ml (100 Ml)) 400 mcg in 100 mls @ 3.198 mls /hr IV .Q24H PRN; Protocol; 0.2 MCG/KG/HR PRN Reason: Agitation Last Titration: 06/04/17 21:27 Dose: 0.75 mcg/kg/hr, 12 mls/hr Metoprolol Tartrate (Lopressor) 100 mg PO BID [facility] Last Admin: 06/04/17 17:13 Dose: Not Given Pantoprazole Sodium (Protonix Inj) 40 mg IVP DAILY [facility] Last Admin: 06/04/17 10:00 Dose: 40 mg Quetiapine Fumarate (Seroquel) 50 mg PO HS [facility] PRN Reason: Protocol Last Admin: 06/04/17 22:00 Dose: Not Given Thiamine HCl (Vitamin B1 Tab) 100 mg PO DAILY [facility] Last Admin: 06/03/17 13:23 Dose: 100 mg - Labs Labs: 06/04/17 04:45 06/04/17 04:45 PT 13.0 Seconds (9.9-11.8) H 06/02/17 05:30 INR 1.20 (0.93-1.08) H 06/02/17 05:30 APTT 39.7 Seconds (23.7-30.8) H 06/05/17 04:00 - Constitutional Appears: Other (lethargic) - Respiratory Exam Respiratory Exam: Decreased Breath Sounds - Cardiovascular Exam Cardiovascular Exam: +S1, +S2 - GI/Abdominal Exam GI & Abdominal Exam: Soft. absent: Tenderness Assessment and Plan - Assessment and Plan (Free Text) Plan: Assessment Rule out intra-abdominal infection in a patient with ascites - would also need to rule out malignant ascites in a patient with right ovarian mass suspicious for malignancy Confusion, lethargy, consider secondary to possible malignancy, R/O anti-NMDA receptor encephalitis (although less likely since the CSF analysis did not show pleocytosis) alcoholic liver disease Plan Continue Zosyn pending ascitic fluid analysis if and when it is feasible to do paracentesis Follow up final CSF work up (i.e. anti-NMDA receptor antibodies); CSF fluid cx are negative will follow clinically Overall prognosis is poor
--- NOTE | 2017-06-05 13:06 | CP.PCM.CON ---
History of Present Illness - History of Present Illness History of Present Illness: Palliative consult requested by Dr Nicolas Rosen Reason: Goals of care 61 year old female who presented with confusion, diarrhea and weight loss. Found to have new onset atrial fibrillation with RVR. Labs showed hyponatremia, hypokalemia. Subsequent workup revealed a new large mass in left adenexa consistent with ovarian cancer and ascites consistent with metastatic disease. PMHx: alcohol abuse, HTN. Social History: Current smoker, daily alcohol, no illicit drug use. Family History: Non contributory. Advance Care Planning: The patient does not have an advanced directive. She is DNI. Review of Systems: As per HPI, patient is non verbal with altered mental status , unable to obtain. Past Patient History - Infectious Disease Hx of Infectious Diseases: None - Past Medical History & Family History Past Medical History?: Yes - Past Social History Smoking Status: Light Smoker < 10 Cigarettes Daily Alcohol: > 2 Drinks/Day - CARDIAC Hx Hypertension: Yes - PULMONARY Hx Respiratory Disorders: No - NEUROLOGICAL Hx Alzheimer's Disease: Yes (early stages) - HEENT Hx HEENT Problems: No - RENAL Hx Chronic Kidney Disease: No - ENDOCRINE/METABOLIC Hx Endocrine Disorders: No Other/Comment: Low blood sugar - HEMATOLOGICAL/ONCOLOGICAL Hx Blood Disorders: No - INTEGUMENTARY Hx Dermatological Problems: No - MUSCULOSKELETAL/RHEUMATOLOGICAL Hx Falls: No Hx Unsteady Gait: Yes (uses cane at home) - GASTROINTESTINAL Other/Comment: diarrhea - GENITOURINARY/GYNECOLOGICAL Hx Genitourinary Disorders: No - PSYCHIATRIC Hx Depression: Yes Hx Substance Use: No Meds Allergies/Adverse Reactions: Allergies Allergy/AdvReac Type Severity Reaction Status Date / Time No Known Allergies Allergy Unverified 05/27/17 16:33 - Medications Medications: Current Medications Folic Acid (Folic Acid) 1 mg PO DAILY [facility] Last Admin: 06/05/17 09:27 Dose: Not Given Dextrose/Sodium Chloride (Dextrose 5%/0.9% Ns 1000 Ml) 1,000 mls @ 100 mls/hr IV .Q10H [facility] Last Admin: 06/05/17 09:26 Dose: 100 mls/hr Piperacillin Sod/Tazobactam Sod (Zosyn 3.375 In Ns 100ml) 100 mls @ 200 mls/hr IVPB Q6 [facility] PRN Reason: Protocol Stop: 06/10/17 12:01 Pantoprazole Sodium (Protonix Inj) 40 mg IVP DAILY [facility] Last Admin: 06/05/17 09:24 Dose: 40 mg Quetiapine Fumarate (Seroquel) 50 mg PO [facility] PRN Reason: Protocol Last Admin: 06/04/17 22:00 Dose: Not Given Thiamine HCl (Vitamin B1 Tab) 100 mg PO DAILY [facility] Last Admin: 06/05/17 09:25 Dose: Not Given Physical Exam - Constitutional Appears: Agitated, Chronically Ill Additional comments: obese - Eye Exam Eye Exam: PERRL, Scleral icterus - ENT Exam ENT Exam: Mucous Membranes Moist - Respiratory Exam Respiratory Exam: Decreased Breath Sounds - Cardiovascular Exam Cardiovascular Exam: Irregular Rhythm, +S1, +S2 - GI/Abdominal Exam GI & Abdominal Exam: Diminished Bowel Sounds, Distended, Firm - Extremities Exam Extremities exam: Positive for: normal capillary refill Additional comments: multiple skin tears, echymosis of upper extremities - Neurological Exam Neurological exam: Altered - Skin Skin Exam: Dry, Pallor - Additional Findings Additional findings: Palliative performance scale rating 30 % Results - Vital Signs Recent Vital Signs: Last Vital Signs Temp 90.7 F L 06/05/17 10:30 Pulse 53 L 06/05/17 10:30 Resp 36 H 06/05/17 10:30 BP 81/47 L 06/05/17 10:30 Pulse Ox 100 06/05/17 10:30 - Labs Result Diagrams: 06/05/17 05:30 06/05/17 09:00 Labs: Laboratory Results - last 24 hr 06/01/17 06/01/17 06/01/17 12:30 13:20 14:40 WBC RBC Hgb Hct MCV MCH MCHC RDW Plt Count MPV Gran % Lymph % (Auto) [place] % (Auto) Eos % (Auto) Baso % (Auto) Gran # Lymph # [place] # Eos # Baso # APTT Hep-Ioana Thrombocytopen Negative Sodium Potassium Chloride Carbon Dioxide Anion Gap BUN Creatinine Est GFR ( Amer) Est GFR (Non-Af Amer) Random Glucose Calcium Total Bilirubin AST ALT Alkaline Phosphatase Total Protein Albumin Globulin Albumin/Globulin Ratio CMV Specimen Source Cerebrospinal fluid CMV DNA Quant PCR <200 CMV Qnt PCR log IU/mL <2.30 HSV Source Description Csf HSV I DNA PCR Not detected HSV II DNA PCR Not detected 06/04/17 06/04/17 06/05/17 13:53 21:15 04:00 WBC RBC Hgb Hct MCV MCH MCHC RDW Plt Count MPV Gran % Lymph % (Auto) [place] % (Auto) Eos % (Auto) Baso % (Auto) Gran # Lymph # [place] # Eos # Baso # APTT 120.9 H* 49.0 H 39.7 H Hep-Ioana Thrombocytopen Sodium Potassium Chloride Carbon Dioxide Anion Gap BUN Creatinine Est GFR ( Amer) Est GFR (Non-Af Amer) Random Glucose Calcium Total Bilirubin AST ALT Alkaline Phosphatase Total Protein Albumin Globulin Albumin/Globulin Ratio CMV Specimen Source CMV DNA Quant PCR CMV Qnt PCR log IU/mL HSV Source Description HSV I DNA PCR HSV II DNA PCR 06/05/17 06/05/17 06/05/17 05:30 05:30 09:00 WBC 9.0 RBC 3.20 L Hgb 10.7 L Hct 33.3 L MCV 104.1 MCH 33.4 MCHC 32.1 RDW 14.5 Plt Count 57 L MPV 10.6 Gran % 74.1 H Lymph % (Auto) 17.4 L [place] % (Auto) 8.3 H Eos % (Auto) 0.1 L Baso % (Auto) 0.1 Gran # 6.68 H Lymph # 1.6 [place] # 0.8 H Eos # 0.0 Baso # 0.01 APTT Hep-Ioana Thrombocytopen Sodium 145 145 Potassium 3.2 L 3.3 L Chloride 122 H 124 H Carbon Dioxide 18 L 18 L Anion Gap 8 L 6 L BUN 12 12 Creatinine 0.9 0.9 Est GFR ( Amer) > 60 > 60 Est GFR (Non-Af Amer) > 60 > 60 Random Glucose 167 H 170 H Calcium 8.0 L 7.2 L Total Bilirubin 0.6 0.5 AST 29 23 ALT 30 26 Alkaline Phosphatase 88 65 Total Protein 5.1 L 4.2 L Albumin 1.8 L 1.4 L Globulin 3.3 2.8 Albumin/Globulin Ratio 0.5 L 0.5 L CMV Specimen Source CMV DNA Quant PCR CMV Qnt PCR log IU/mL HSV Source Description HSV I DNA PCR HSV II DNA PCR Assessment & Plan - Assessment and Plan (Free Text) Assessment: 61 year old female admitted with new onset atrial fibrillation with RVR, altered mental status, large adenexal mass, ascites. Patient's daughter at bedside. Palliative services introduced as support system for patient and family. Daughter states that it is just her and her mother, there are no other family members. Daughter is POA/health care proxy. Patient has a living will and indicated that she wanted CPR/intubation. Patient now has altered mental status. Daughter overwhelmed by the severity of mother's illness. After speaking with consulting physician, daughters has agreed to DNI. Ramifications of DNR explained. Daughter appreciative of palliative input. Psychosocial support given. Time spent in goals of care discussion, 15 minutes Plan: Will assist with establishing goals of care and advance care.
[2017-06-05] MEDS: Piperacillin/Tazobact 3.375 gm 100 ML IVPB SCH ×2 (13:33→17:26)
--- NOTE | 2017-06-05 15:47 | CP.PCM.PN ---
<Esther Franklin - Last Filed: 06/05/17 16:15> Subjective - Date & Time of Evaluation Date of Evaluation: 06/05/17 Time of Evaluation: 15:45 - Subjective Subjective: PGY-2 Progress note Patient seen and examined at bedside in ICU. Overnight patient became bradicardic and hypothermic. Maximino hugger was placed. Patient is awake but not oriented. Objective - Vital Signs/Intake and Output Vital Signs (last 24 hours): Temp Pulse Resp BP Pulse Ox 90.7 F L 70 36 H 81/47 L 100 06/05/17 10:30 06/05/17 10:59 06/05/17 10:30 06/05/17 10:30 06/05/17 10:30 Intake and Output: 06/05/17 06/05/17 06:59 18:59 Intake Total 1200 11 Output Total 200 Balance 1000 11 - Medications Medications: Current Medications Folic Acid (Folic Acid) 1 mg PO DAILY [facility] Last Admin: 06/05/17 09:27 Dose: Not Given Dextrose/Sodium Chloride (Dextrose 5%/0.9% Ns 1000 Ml) 1,000 mls @ 100 mls/hr IV .Q10H [facility] Last Admin: 06/05/17 09:26 Dose: 100 mls/hr Piperacillin Sod/Tazobactam Sod (Zosyn 3.375 In Ns 100ml) 100 mls @ 200 mls/hr IVPB Q6 [facility] PRN Reason: Protocol Stop: 06/10/17 12:01 Last Admin: 06/05/17 13:33 Dose: 200 mls/hr Pantoprazole Sodium (Protonix Inj) 40 mg IVP DAILY [facility] Last Admin: 06/05/17 09:24 Dose: 40 mg Quetiapine Fumarate (Seroquel) 50 mg PO HS [facility] PRN Reason: Protocol Last Admin: 06/04/17 22:00 Dose: Not Given Thiamine HCl (Vitamin B1 Tab) 100 mg PO DAILY [facility] Last Admin: 06/05/17 09:25 Dose: Not Given - Labs Labs: 06/05/17 05:30 06/05/17 09:00 PT 13.0 Seconds (9.9-11.8) H 06/02/17 05:30 INR 1.20 (0.93-1.08) H 06/02/17 05:30 APTT 39.7 Seconds (23.7-30.8) H 06/05/17 04:00 - Constitutional Appears: No Acute Distress, Chronically Ill - Head Exam Head Exam: ATRAUMATIC, NORMOCEPHALIC - Eye Exam Eye Exam: Normal appearance - Respiratory Exam Respiratory Exam: Clear to Ausculation Bilateral, NORMAL BREATHING PATTERN. absent: Rhonchi, Wheezes, Respiratory Distress - Cardiovascular Exam Cardiovascular Exam: REGULAR RHYTHM, +S1, +S2. absent: Tachycardia - GI/Abdominal Exam GI & Abdominal Exam: Soft, Normal Bowel Sounds. absent: Distended, Firm, Tenderness - Extremities Exam Extremities Exam: absent: Pedal Edema - Neurological Exam Neurological Exam: Awake. absent: Oriented x3 - Skin Skin Exam: Dry, Intact, Normal Color, Warm Assessment and Plan - Assessment and Plan (Free Text) Assessment: 61Y F with PMH of HTN and alcoholism admitted for abdominal pain and weight loss found to have ovarian mass (suspicious for ovarian cancer), ascites and atrial fibrillation. Patient has developed hypoactive delirium during her stay. Over night patient became bradycardic and hypothermic. Plan: Plan: Neuro: Patient continues presents with mixed delirium. Precedex IV drip was started for agitation but stopped due to bradycardia. continue Seroquel 50 mg BID, will avoid Benzodiazepines and Haldol. Repeat head CT on 06/01, negative. Brain MRI on 05/30, unremarkable. LP was negative for wbcs, neg for growth x1d, CSF cryptococcal Ag neg. Continue neuro checks. Continue re-orientation, keep blinds open. Neuro following. CV: HR improved once precedex was stopped. Patient had afib. continue Metoprolol , Heparin drip, no thrombocytopenia, will cont to monitor platelets. Cardio following. Pulm: Comfortable on NC, Maintain spO2>90%, HOB elevated, Aspiration precaution. Patient is DNI per family. GI: NPO at this time except meds, Passed bedside swallow. GI following. Stopped Lactulose, due to no change in mental status. Neprho: Will continue to monitor electrolytes and will replace as needed. Monitor I&O, Maintain euvolemia Heme: Hgb stable, Ovarian Ca with + CEA ad Ca-125, Heme/onc following, Hatch Boss consulted ID: hypothermia, no leukocytosis. Maximino hugger placed. Maintain normothermia. ID following. zosyn Endo: Maintain euglycemia GI ppx: Protonix DVT ppx: Heparin drip <Chandler Tavera MD H - Last Filed: 06/05/17 16:44> Objective - Vital Signs/Intake and Output Vital Signs (last 24 hours): Temp Pulse Resp BP Pulse Ox 90.7 F L 70 36 H 81/47 L 100 06/05/17 10:30 06/05/17 10:59 06/05/17 10:30 06/05/17 10:30 06/05/17 10:30 Intake and Output: 06/05/17 06/05/17 06:59 18:59 Intake Total 1200 11 Output Total 200 Balance 1000 11 - Medications Medications: Current Medications Folic Acid (Folic Acid) 1 mg PO DAILY [facility] Last Admin: 06/05/17 09:27 Dose: Not Given Dextrose/Sodium Chloride (Dextrose 5%/0.9% Ns 1000 Ml) 1,000 mls @ 100 mls/hr IV .Q10H [facility] Last Admin: 06/05/17 09:26 Dose: 100 mls/hr Piperacillin Sod/Tazobactam Sod (Zosyn 3.375 In Ns 100ml) 100 mls @ 200 mls/hr IVPB Q6 [facility] PRN Reason: Protocol Stop: 06/10/17 12:01 Last Admin: 06/05/17 13:33 Dose: 200 mls/hr Pantoprazole Sodium (Protonix Inj) 40 mg IVP DAILY [facility] Last Admin: 06/05/17 09:24 Dose: 40 mg Quetiapine Fumarate (Seroquel) 50 mg PO HS [facility] PRN Reason: Protocol Last Admin: 06/04/17 22:00 Dose: Not Given Thiamine HCl (Vitamin B1 Tab) 100 mg PO DAILY [facility] Last Admin: 06/05/17 09:25 Dose: Not Given - Labs Labs: 06/05/17 05:30 06/05/17 09:00 PT 13.0 Seconds (9.9-11.8) H 06/02/17 05:30 INR 1.20 (0.93-1.08) H 06/02/17 05:30 APTT 39.7 Seconds (23.7-30.8) H 06/05/17 04:00 Attending/Attestation - Attestation I have personally seen and examined this patient.: Yes I have fully participated in the care of the patient.: Yes I have reviewed all pertinent clinical information, including history, physical exam and plan: Yes Notes (Text): 06/05/17 16:41 61 F w/ worsening respiratory failure and Mental status New Malignancy w/o any plan for intervention. Poor prognosis overall. DNI. DNR pending PCP aware. palliative care aware. off all sedation family at bedside. cc time 55 min
[2017-06-05] MEDS: Ipratropium 0.02% Inhal Soln (0.5 mg/2.5 ml) UD IH PRN (22:15)
[2017-06-05] MEDS: Levalbuterol 1.25 MG/3 ML Inhal Soln UD IH PRN (22:15)
[2017-06-06] MEDS ORDERED: Metoprolol 1 mg/ml Inj IVP ONE (02:05)
--- NOTE | 2017-06-06 02:09 | CP.PCM.PN ---
Subjective - Date & Time of Evaluation Date of Evaluation: 06/06/17 Time of Evaluation: 02:00 - Subjective Subjective: Overnight, the patient became extremely restless and agitated (attempting to remove IV and get out of bed). Therefore, Haldol 2.5mg IV x1 was given. Also, her heart rate became persistently elevated (as high as 140's). As a result, Metoprolol 2.5mg IV x 1 was given (her SBP at that time was 138). Will continue to monitor closely and update primary MD in AM. Objective - Vital Signs/Intake and Output Vital Signs (last 24 hours): Temp Pulse Resp BP Pulse Ox 97.7 F 130 H 21 109/59 L 93 L 06/05/17 20:00 06/05/17 23:00 06/05/17 23:00 06/05/17 23:00 06/05/17 23:00 Intake and Output: 06/05/17 06/06/17 18:59 06:59 Intake Total 1245 Output Total 50 Balance 1195 - Medications Medications: Current Medications Folic Acid (Folic Acid) 1 mg PO DAILY [facility] Last Admin: 06/05/17 09:27 Dose: Not Given Dextrose/Sodium Chloride (Dextrose 5%/0.9% Ns 1000 Ml) 1,000 mls @ 100 mls/hr IV .Q10H [facility] Last Admin: 06/05/17 09:26 Dose: 100 mls/hr Piperacillin Sod/Tazobactam Sod (Zosyn 3.375 In Ns 100ml) 100 mls @ 200 mls/hr IVPB Q6 [facility] PRN Reason: Protocol Stop: 06/10/17 12:01 Last Admin: 06/06/17 00:00 Dose: 200 mls/hr Ipratropium [place] (Atrovent) 0.5 mg IH Q2H PRN PRN Reason: Shortness of Breath Last Admin: 06/05/17 22:15 Dose: 0.5 mg Levalbuterol HCl (Xopenex) 1.25 mg IH Q2H PRN PRN Reason: Shortness of Breath Last Admin: 06/05/17 22:15 Dose: 1.25 mg Pantoprazole Sodium (Protonix Inj) 40 mg IVP DAILY [facility] Last Admin: 06/05/17 09:24 Dose: 40 mg Quetiapine Fumarate (Seroquel) 50 mg PO HS [facility] PRN Reason: Protocol Last Admin: 06/05/17 21:27 Dose: Not Given Thiamine HCl (Vitamin B1 Tab) 100 mg PO DAILY [facility] Last Admin: 06/05/17 09:25 Dose: Not Given - Labs Labs: 06/05/17 05:30 06/05/17 09:00 PT 13.0 Seconds (9.9-11.8) H 06/02/17 05:30 INR 1.20 (0.93-1.08) H 06/02/17 05:30 APTT 39.7 Seconds (23.7-30.8) H 06/05/17 04:00
[2017-06-06] MEDS: Piperacillin/Tazobact 3.375 gm 100 ML IVPB SCH ×2 (05:23)
[2017-06-06] MEDS: Ipratropium 0.02% Inhal Soln (0.5 mg/2.5 ml) UD IH PRN ×2 (05:50→08:28)
[2017-06-06] MEDS: Levalbuterol 1.25 MG/3 ML Inhal Soln UD IH PRN ×2 (05:50→08:28)
[2017-06-06 07:19] LABS: ALB/GLOB RATIO 0.6 (1.1-1.8); ALBUMIN 2.1 g/dL (3.0-4.8); BASO # 0.01 K/mm3 (0.0-2.0); BASO % 0.1 % (0.0-3.0); GRAN # 12.47 (1.4-6.5); GRAN % 83.1 % (50.0-68.0); HEMOGLOBIN 11.4 gm/dL (12.0-16.0); LYMPH # 1.2 (1.2-3.4); LYMPH % 8.1 % (22.0-35.0); MEAN CELL VOLUME 104.1 fL (80.0-105.0); MEAN CORPUSCULAR HEMOGLOBIN 33.4 pg (25.0-35.0); MEAN CORPUSCULAR HGB CONC 32.1 g/dl (31.0-37.0); MEAN PLATELET VOLUME 11.2 fl (7.0-11.0); MONO # 1.3 (0.1-0.6); MONO % 8.7 % (1.0-6.0); PLATELET COUNT 70 10^3/uL (120.0-450.0); RBC 3.41 10^6/uL (3.5-6.1); RED CELL DISTRIBUTION WIDTH 14.6 % (11.5-14.5)
--- NOTE | 2017-06-06 09:01 | CP.PCM.PN ---
<Elizabeth Huertas - Last Filed: 06/06/17 09:00> Subjective - Date & Time of Evaluation Date of Evaluation: 06/06/17 Time of Evaluation: 08:50 - Subjective Subjective: S&E at bedside, chart reviewed. Patient agitated last night, she is awake and speaks but not clear, confused. HR [id number], Afib, given Lopressor last night, off Precedex, poor urine output, no reports of overt GI bleed. Objective - Vital Signs/Intake and Output Vital Signs (last 24 hours): Temp Pulse Resp BP Pulse Ox 99 F 140 H 19 136/95 H 94 L 06/06/17 04:00 06/06/17 07:38 06/06/17 06:00 06/06/17 06:00 06/06/17 06:00 Intake and Output: 06/06/17 06/06/17 06:59 18:59 Intake Total 1200 Output Total 50 Balance 1150 - Medications Medications: Current Medications Folic Acid (Folic Acid) 1 mg PO DAILY [facility] Last Admin: 06/05/17 09:27 Dose: Not Given Piperacillin Sod/Tazobactam Sod (Zosyn 3.375 In Ns 100ml) 100 mls @ 200 mls/hr IVPB Q6 [facility] PRN Reason: Protocol Stop: 06/10/17 12:01 Last Admin: 06/06/17 05:23 Dose: 200 mls/hr Potassium Chloride (Potassium Chloride 10 Meq/100 Ml) 10 meq in 100 mls @ 100 mls/hr IVPB Q2H [facility] Stop: 06/06/17 10:44 Last Admin: 06/06/17 08:02 Dose: 100 mls/hr Potassium Chloride 40 meq/ (Dextrose) 1,020 mls @ 100 mls/hr IV .[id number] [facility] Ipratropium [place] (Atrovent) 0.5 mg IH Q2H PRN PRN Reason: Shortness of Breath Last Admin: 06/06/17 08:28 Dose: 0.5 mg Levalbuterol HCl (Xopenex) 1.25 mg IH Q2H PRN PRN Reason: Shortness of Breath Last Admin: 06/06/17 08:28 Dose: 1.25 mg Pantoprazole Sodium (Protonix Inj) 40 mg IVP DAILY [facility] Last Admin: 06/06/17 08:03 Dose: 40 mg Quetiapine Fumarate (Seroquel) 50 mg PO [facility] PRN Reason: Protocol Last Admin: 06/05/17 21:27 Dose: Not Given Thiamine HCl (Vitamin B1 Tab) 100 mg PO DAILY [facility] Last Admin: 06/05/17 09:25 Dose: Not Given - Labs Labs: 06/06/17 06:50 06/06/17 06:50 PT 13.0 Seconds (9.9-11.8) H 06/02/17 05:30 INR 1.20 (0.93-1.08) H 06/02/17 05:30 APTT 39.7 Seconds (23.7-30.8) H 06/05/17 04:00 - Constitutional Appears: No Acute Distress - Head Exam Head Exam: NORMAL INSPECTION - Eye Exam Eye Exam: Normal appearance. absent: Scleral icterus - ENT Exam ENT Exam: Mucous Membranes Dry - Neck Exam Neck Exam: Normal Inspection - Respiratory Exam Respiratory Exam: Decreased Breath Sounds, NORMAL BREATHING PATTERN. absent: Rales, Wheezes, Respiratory Distress - Cardiovascular Exam Cardiovascular Exam: +S1, +S2 - GI/Abdominal Exam GI & Abdominal Exam: Distended, Soft, Normal Bowel Sounds. absent: Guarding, Tenderness, Rebound - Extremities Exam Extremities Exam: Pedal Edema. absent: Calf Tenderness - Neurological Exam Neurological Exam: Altered, Awake - Skin Skin Exam: Dry, Warm Assessment and Plan - Assessment and Plan (Free Text) Assessment: ASSESSMENT: Leukocytosis s/p Hypothermia Altered Mental Status, unknown etiology, ? hepatic encephalapathy, alcohol induced, deliruim. Patient did receive lactulose twice daily for 2 days Large sold mass right adnexa, likly Ovarian mass Ascites malignant VS Cirrhosis Chronic ETOH Weight loss Atrial Fibrillation w/ RVR HTN Plan: PLAN: NPO, continue PPI on Iv antibiotics FU blood cultures monitor H/H off Heparin now spoke to Dr. Rosen, pt, evaluated by covering IR and not enough ascitic fluid to tap [employer]/oncology/cardio FU as per ICU team now DNI Seen and discussed with Dr. Argueta. <Stephen Argueta V - Last Filed: 06/08/17 00:01> Objective - Vital Signs/Intake and Output Vital Signs (last 24 hours): Temp Pulse Resp BP Pulse Ox 73.0 F L 176 H 46 H 71/43 L 92 L 06/06/17 22:56 06/06/17 22:50 06/06/17 22:50 06/06/17 22:31 06/06/17 22:53 - Labs Labs: 06/06/17 06:50 06/06/17 06:50 PT 13.0 Seconds (9.9-11.8) H 06/02/17 05:30 INR 1.20 (0.93-1.08) H 06/02/17 05:30 APTT 39.7 Seconds (23.7-30.8) H 06/05/17 04:00 Attending/Attestation - Attestation Notes (Text): this
[2017-06-06] MEDS ORDERED: Amiodarone 360 mg/D5W 200 ml 360 MG/200 ML BAG IV SCH ×2 (09:15→14:00)
--- NOTE | 2017-06-06 10:09 | CP.PCM.PN ---
Subjective - Date & Time of Evaluation Date of Evaluation: 06/06/17 Time of Evaluation: 09:40 - Subjective Subjective: Patient continues to be lethargic, tachycardic, tachypneic. No fevers overnight. Objective - Vital Signs/Intake and Output Vital Signs (last 24 hours): Temp Pulse Resp BP Pulse Ox 99 F 134 H 19 126/58 L 95 06/06/17 04:00 06/06/17 05:00 06/06/17 05:00 06/06/17 05:00 06/06/17 05:00 Intake and Output: 06/05/17 06/06/17 18:59 06:59 Intake Total 1245 Output Total 50 Balance 1195 - Medications Medications: Current Medications Folic Acid (Folic Acid) 1 mg PO DAILY [facility] Last Admin: 06/05/17 09:27 Dose: Not Given Dextrose/Sodium Chloride (Dextrose 5%/0.9% Ns 1000 Ml) 1,000 mls @ 100 mls/hr IV .Q10H [facility] Last Admin: 06/05/17 23:30 Dose: 100 mls/hr Piperacillin Sod/Tazobactam Sod (Zosyn 3.375 In Ns 100ml) 100 mls @ 200 mls/hr IVPB Q6 ALF PRN Reason: Protocol Stop: 06/10/17 12:01 Last Admin: 06/06/17 05:23 Dose: 200 mls/hr Ipratropium [place] (Atrovent) 0.5 mg IH Q2H PRN PRN Reason: Shortness of Breath Last Admin: 06/06/17 05:50 Dose: 0.5 mg Levalbuterol HCl (Xopenex) 1.25 mg IH Q2H PRN PRN Reason: Shortness of Breath Last Admin: 06/06/17 05:50 Dose: 1.25 mg Pantoprazole Sodium (Protonix Inj) 40 mg IVP DAILY [facility] Last Admin: 06/05/17 09:24 Dose: 40 mg Quetiapine Fumarate (Seroquel) 50 mg PO HS [facility] PRN Reason: Protocol Last Admin: 06/05/17 21:27 Dose: Not Given Thiamine HCl (Vitamin B1 Tab) 100 mg PO DAILY [facility] Last Admin: 06/05/17 09:25 Dose: Not Given - Labs Labs: 06/05/17 05:30 06/05/17 09:00 PT 13.0 Seconds (9.9-11.8) H 06/02/17 05:30 INR 1.20 (0.93-1.08) H 06/02/17 05:30 APTT 39.7 Seconds (23.7-30.8) H 06/05/17 04:00 - Constitutional Appears: Other (lethargic) - Head Exam Head Exam: NORMAL INSPECTION - Neck Exam Neck Exam: absent: Meningismus - Respiratory Exam Respiratory Exam: Decreased Breath Sounds (at the bases with some crackles noted ) - Cardiovascular Exam Cardiovascular Exam: +S1, +S2 - GI/Abdominal Exam GI & Abdominal Exam: Soft. absent: Tenderness Assessment and Plan - Assessment and Plan (Free Text) Plan: Assessment New onset Systemic Inflammatory Response Syndrome, R/O sepsis due to possible left lower lobe hospital-acquired pneumonia Rule out intra-abdominal infection in a patient with ascites - would also need to rule out malignant ascites in a patient with right ovarian mass suspicious for malignancy Confusion, lethargy, consider secondary to possible malignancy, R/O anti-NMDA receptor encephalitis (although less likely since the CSF analysis did not show pleocytosis) alcoholic liver disease Plan change zosyn to zyvox and Merrem (will be cautious in giving Zyvox since the patient currently has thrombocytopenia, although Zyvox-associated decrease in platelet count usually happens a week after it is started); will check repeat cultures Follow up final CSF work up (i.e. anti-NMDA receptor antibodies); CSF fluid cx are negative will continue to follow clinically Overall prognosis is poor Discussed with Dr. Rosen, Dr. Martinez (covering dr. Rosen) and Dr. Garcia
[2017-06-06] MEDS ORDERED: Linezolid 600 mg in D5W 300 ml 600 MG/300 ML BAG IVPB SCH (10:15)
[2017-06-06] MEDS ORDERED: Meropenem 1g/NS 100mL IVPB 1 GM/100 ML PIGGYBACK IVPB SCH (10:15)
[2017-06-06 11:00] LABS: ARTERIAL BLOOD GAS HCO3 13.2 mmol/L (21-28); ARTERIAL BLOOD GAS HEMOGLOBIN 11.3 g/dL (11.7-17.4); ARTERIAL BLOOD GAS O2 CAPACITY 15.5 mL/dl (16-24); ARTERIAL BLOOD GAS O2 CONTENT 14.8 ML/dl (15-23); ARTERIAL BLOOD GAS O2 SAT 95.6 % (95-98); ARTERIAL BLOOD GAS PCO2 33 mm/Hg (35-45); ARTERIAL BLOOD GAS TCO2 14.2 mmol.L (22-28)
[2017-06-06 11:05] LABS: ARTERIAL BLOOD GAS PH 7.21 (7.35-7.45)
--- NOTE | 2017-06-06 12:34 | RAD ---
HISTORY: sob COMPARISON: 06/05/2017 FINDINGS: LUNGS: Opacity at left base likely due to pleural effusion. Cannot exclude superimposed alveolar density. PLEURA: New small to moderate left pleural effusion. No evidence of right pleural effusion. No pneumothorax. CARDIOVASCULAR: Congestive change. Normal heart size. OSSEOUS STRUCTURES: No significant abnormalities. VISUALIZED UPPER ABDOMEN: Normal. OTHER FINDINGS: None. IMPRESSION: Congestive change. Left pleural effusion, new since prior examination.
--- NOTE | 2017-06-06 12:39 | CP.PCM.PN ---
Subjective - Date & Time of Evaluation Date of Evaluation: 06/06/17 Time of Evaluation: 11:00 - Subjective Subjective: Restless, altered mental status, dyspnea, BIPAP in use Objective - Vital Signs/Intake and Output Vital Signs (last 24 hours): Temp Pulse Resp BP Pulse Ox 98.8 F 133 H 46 H 95/49 L 95 06/06/17 11:30 06/06/17 11:44 06/06/17 11:30 06/06/17 11:02 06/06/17 11:30 Intake and Output: 06/06/17 06/06/17 06:59 18:59 Intake Total 1200 Output Total 50 Balance 1150 - Medications Medications: Current Medications Folic Acid (Folic Acid) 1 mg PO DAILY [facility] Last Admin: 06/06/17 10:04 Dose: Not Given Potassium Chloride 40 meq/ (Dextrose) 1,020 mls @ 100 mls/hr IV .[id number] ALF Last Admin: 06/06/17 11:10 Dose: 100 mls/hr Amiodarone HCl/Dextrose (Nexterone 360 Mg In D5w 200 Ml (Premix)) 360 mg in 200 mls @ 33.333 mls/hr IV .Q6H ALF; 1 MG/MIN PRN Reason: Protocol Last Admin: 06/06/17 09:27 Dose: 33.333 mls/hr Meropenem 1g/NS 100mL IVPB (Meropenem 1g/Ns 100ml Ivpb) 1 gm in 100 mls @ 100 mls/hr IVPB Q12 ALF PRN Reason: Protocol Stop: 06/13/17 10:16 Last Admin: 06/06/17 12:18 Dose: 100 mls/hr Linezolid (Zyvox 600mg/300ml D5w) 600 mg in 300 mls @ 200 mls/hr IVPB Q12 ALF PRN Reason: Protocol Stop: 06/13/17 10:16 Last Admin: 06/06/17 10:16 Dose: 200 mls/hr Ipratropium [place] (Atrovent) 0.5 mg IH Q2H PRN PRN Reason: Shortness of Breath Last Admin: 06/06/17 08:28 Dose: 0.5 mg Levalbuterol HCl (Xopenex) 1.25 mg IH Q2H PRN PRN Reason: Shortness of Breath Last Admin: 06/06/17 08:28 Dose: 1.25 mg Pantoprazole Sodium (Protonix Inj) 40 mg IVP DAILY [facility] Last Admin: 06/06/17 10:03 Dose: Not Given Quetiapine Fumarate (Seroquel) 50 mg PO HS [facility] PRN Reason: Protocol Last Admin: 06/05/17 21:27 Dose: Not Given Thiamine HCl (Vitamin B1 Tab) 100 mg PO DAILY [facility] Last Admin: 06/06/17 10:01 Dose: Not Given - Labs Labs: 06/06/17 06:50 06/06/17 06:50 PT 13.0 Seconds (9.9-11.8) H 06/02/17 05:30 INR 1.20 (0.93-1.08) H 06/02/17 05:30 APTT 39.7 Seconds (23.7-30.8) H 06/05/17 04:00 - Constitutional Appears: Agitated, Chronically Ill - Eye Exam Eye Exam: PERRL, Scleral icterus - ENT Exam ENT Exam: Mucous Membranes Moist - Respiratory Exam Respiratory Exam: Accessory Muscle Use, Decreased Breath Sounds, Wheezes - Cardiovascular Exam Cardiovascular Exam: Tachycardia, Irregular Rhythm, +S1, +S2 - GI/Abdominal Exam GI & Abdominal Exam: Distended, Firm, Diminished Bowel Sounds - Extremities Exam Additional comments: bilateral lower extremity edema - Neurological Exam Neurological Exam: Altered - Psychiatric Exam Psychiatric exam: Agitated - Skin Skin Exam: Dry, Warm Additional comments: jaundice Assessment and Plan - Assessment and Plan (Free Text) Assessment: 60 year old female admitted with sepsis, altered mental status, delerium, hyopxemia, ovarian mass, ascites. Daughter at bedside. We had a long discussion regarding patient medical condition and extremely poor prognosis. Daughter agreeable to DNR/DNI. Daughter wants to pursue hospice care. Hospice services explained in detail. Daughter concerned about handling mother agitation and dyspnea. Will request evaluation symptom management under for GIP services Plan: DNR/DNI Hospice evaluation
--- NOTE | 2017-06-06 14:45 | CP.PCM.PN ---
<MICHAELA OTOOLE - Last Filed: 06/06/17 15:10> Subjective - Date & Time of Evaluation Date of Evaluation: 06/06/17 Time of Evaluation: 14:42 - Subjective Subjective: Pt seen and examined at bedside. Overnight, pt agitated, received 1 dose of haldol. Pt's HR elevated 140's, received 1 dose of Lopressor with not much improvement. This morning, pt is more awake, oriented to self and person, not to time and place. Objective - Vital Signs/Intake and Output Vital Signs (last 24 hours): Temp Pulse Resp BP Pulse Ox 99.1 F 133 H 43 H 110/75 95 06/06/17 14:30 06/06/17 14:30 06/06/17 14:30 06/06/17 14:00 06/06/17 14:30 Intake and Output: 06/06/17 06/06/17 06:59 18:59 Intake Total 1200 Output Total 50 Balance 1150 - Medications Medications: Current Medications Amiodarone HCl/Dextrose (Nexterone 360 Mg In D5w 200 Ml (Premix)) 360 mg in 200 mls @ 16.667 mls/hr IV .Q12H ALF; 0.5 MG/MIN PRN Reason: Protocol Potassium Chloride 40 meq/ (Dextrose) 1,020 mls @ 50 mls/hr IV .[id number] ALF Levalbuterol HCl (Xopenex) 1.25 mg IH Q2H PRN PRN Reason: Shortness of Breath Last Admin: 06/06/17 08:28 Dose: 1.25 mg - Labs Labs: 06/06/17 06:50 06/06/17 06:50 PT 13.0 Seconds (9.9-11.8) H 06/02/17 05:30 INR 1.20 (0.93-1.08) H 06/02/17 05:30 APTT 39.7 Seconds (23.7-30.8) H 06/05/17 04:00 - Constitutional Appears: No Acute Distress - Head Exam Head Exam: ATRAUMATIC, NORMOCEPHALIC - Eye Exam Eye Exam: PERRL - ENT Exam ENT Exam: Mucous Membranes Dry - Respiratory Exam Respiratory Exam: Rhonchi, Wheezes Additional comments: Crackles in right upper lobe. Mild wheezes throughout b/l. - Cardiovascular Exam Cardiovascular Exam: Irregular Rhythm - GI/Abdominal Exam GI & Abdominal Exam: Soft, Normal Bowel Sounds. absent: Guarding, Rigid, Tenderness - Extremities Exam Extremities Exam: absent: Calf Tenderness, Pedal Edema - Neurological Exam Neurological Exam: Awake Additional comments: oriented to person, not to place and time. - Psychiatric Exam Psychiatric exam: Agitated - Skin Skin Exam: Dry, Warm Assessment and Plan - Assessment and Plan (Free Text) Assessment: 61Y F with PMH of cirrhosis, ovarian mass, alcoholism admitted for AMS, found to be mixed delirium with possibly multiactorial etiology, ETOH withdrawal vs hospital delirium. Over the course of hospital stay, pt had become bradycardic (which has now resolved after discontinuing her Precedex drip) and hypothermic. Pt now has decreasing urine output, worsening respiratory status 2/2 likely pneumonia. Pt made DNR/DNI per palliative care, hospice care to be evaluated further. Plan: Neuro: Mixed delirium Pt more awake and oriented today. Patient continues presents with mixed delirium. Precedex IV drip was started for agitation but stopped due to bradycardia. continue Seroquel 50 mg BID, will avoid Benzodiazepines and Haldol. Repeat head CT on 06/01, negative. Brain MRI on 05/30, unremarkable. LP was negative for wbcs, neg for growth x1d, CSF cryptococcal Ag neg. Continue neuro checks. Optimize circadian rhythms and sleep patterns. Continue re-orientation, keep blinds open. Neuro following. CV: Pt in afib, HR 140's, Amiodarone drip started. s/p Lopressor x1 dose overnight, with minimal effect on HR. Thrombocytopenic, cont to monitor platelets. hold heparin as per heme. Cardio following. Dr. Bell approved Amiodarone drip for tachycardia. Pulm: Worsening resp exam, wheezes, crackles on PE, mild accessory muscle use, switched to bipap, Maintain spO2>90%, HOB elevated, Aspiration precaution. Patient is DNI/DNR per family, after discussion with Terri (palliative care) . GI: NPO at this time except meds, Passed bedside swallow. GI following. Stopped Lactulose, due to no change in mental status. Neprho: Will continue to monitor electrolytes and will replace as needed. K replaced today. Monitor I&O, D5NS @100/h. Maintain euvolemia Heme: Hgb stable, Ovarian Ca with + CEA ad Ca-125, Heme/onc following, Senior Sas Programmer consulted ID: afebrile, leukocytosis today 9->15. ID following, switched abx from zosyn to merrem and zyvox (for pneumonia coverage). Maintain normothermia. Endo: Maintain euglycemia GI ppx: Protonix DVT ppx: SCDs Patient likely to be considered for hospice care as per Treri Chavez NP ( pallaiative care). Case discussed and reviewed with PGY2 and attending, Dr. Garcia. Michaela Otoole, PGY1 <Jono Garcia - Last Filed: 06/06/17 17:09> Objective - Vital Signs/Intake and Output Vital Signs (last 24 hours): Temp Pulse Resp BP Pulse Ox 99.1 F 123 H 43 H 110/75 95 06/06/17 14:30 06/06/17 16:32 06/06/17 14:30 06/06/17 14:00 06/06/17 14:30 Intake and Output: 06/06/17 06/06/17 06:59 18:59 Intake Total 1200 Output Total 50 Balance 1150 - Medications Medications: Current Medications Acetaminophen (Tylenol 650 Mg Supp) 650 mg RC Q4H PRN PRN Reason: Fever >100.4 F Morphine Sulfate (Morphine Appliance Painter And Refinisher 1 Mg/Ml) 25 mls @ 2 mls/hr IV PRN PRN; Protocol ; 2 MG/HR PRN Reason: COUNSELOR CAMP PER MD ORDER Last Admin: 06/06/17 16:18 Dose: 2 mg/hr, 2 mls/hr Levalbuterol HCl (Xopenex) 1.25 mg IH Q2H PRN PRN Reason: Shortness of Breath Last Admin: 06/06/17 08:28 Dose: 1.25 mg Lorazepam (Ativan) 1 mg IVP Q6H PRN; Protocol PRN Reason: Anxiety Scopolamine (Transderm-Scop) 1 patch TD Q3D ALF - Labs Labs: 06/06/17 06:50 06/06/17 06:50 PT 13.0 Seconds (9.9-11.8) H 06/02/17 05:30 INR 1.20 (0.93-1.08) H 07/02/17 05:30 APTT 39.7 Seconds (23.7-30.8) H 06/05/17 04:00 Attending/Attestation - Attestation I have personally seen and examined this patient.: Yes I have fully participated in the care of the patient.: Yes I have reviewed all pertinent clinical information, including history, physical exam and plan: Yes Notes (Text): 06/06/17 17:04 61 yo female with what appears to be ovarian cancer, now with pneumonia, with likely severe sepsis and MODS. ICU team was approached by patient's family with request of DNR/DNI and transition to comfort care/hospice. Palliative care consult done and appreciated. ccm time 40 min
[2017-06-06] MEDS ORDERED: Morphine 2 mg/ml ISec IVP PRN (14:48)
[2017-06-06] MEDS ORDERED: Morphine PCA 1 mg/ml (25ml) 25 ML IV PRN ×2 (16:07→16:12)
[2017-06-06] MEDS ORDERED: Morphine 2 mg/ml ISec IVP STA (16:16)
[2017-06-06] MEDS ORDERED: Scopolamine 1.5 mg/24 hr Patch TD SCH (16:30)
[2017-06-06 23:21] VITALS: BP 71/43; PULSE 176; RESP 46; TEMP 73; O2SAT 92
[2017-06-06 23:50] LABS: CARDIOLIPIN AB (IGA) <11 APL (<=11); CARDIOLIPIN AB (IGG) <14 GPL (<=14)
[2017-06-07 04:51] LABS: B2 GLYCOPROTEIN I AB(IGA) 80 SAU (<=20); B2 GLYCOPROTEIN I AB(IGG) <9 SGU (<=20); B2 GLYCOPROTEIN I AB(IGM) >150 SMU (<=20); CARDIOLIPIN AB (IGM) 13 MPL (<=12); PHOSPHATIDYLSERINE AB IGA <20 U/mL (<20); PHOSPHATIDYLSERINE AB IGG <10 U/mL (<10); PHOSPHATIDYLSERINE AB IGM 53 U/mL (<25)
[2017-06-07 18:26] LABS: VGCC ANTIBODY ASSAY <30 pmol/L (<30)
--- NOTE | 2017-06-12 11:57 | CP.PCM.PN ---
Subjective - Date & Time of Evaluation Date of Evaluation: 06/01/17 Time of Evaluation: 08:58 - Subjective Subjective: Patient is lying in bed on Telemetry, she is in wrist restraints. Patient has been sedated and was markedly agitated overnight. Objective - Vital Signs/Intake and Output Vital Signs (last 24 hours): Temp Pulse Resp BP Pulse Ox 73.0 F L 176 H 46 H 71/43 L 92 L 06/06/17 22:56 06/06/17 22:50 06/06/17 22:50 06/06/17 22:31 06/06/17 22:53 - Medications Medications: Acyclovir Lorazepam IV Heparin Metroprolol 50 mg BID Pepcid 20 mg daily Zosyn - Labs Labs: 06/06/17 06:50 06/06/17 06:50 PT 13.0 Seconds (9.9-11.8) H 06/02/17 05:30 INR 1.20 (0.93-1.08) H 06/02/17 05:30 APTT 39.7 Seconds (23.7-30.8) H 06/05/17 04:00 - Constitutional Appears: Other (Middle aged women who appears sedated at present time.) - Neck Exam Additional comments: NO JVD - Respiratory Exam Respiratory Exam: Rhonchi (few scattered) - Cardiovascular Exam Cardiovascular Exam: absent: JVD Additional comments: irregularly irregular rhythm with no pathologic murmurs or gallops. - GI/Abdominal Exam GI & Abdominal Exam: Soft, Normal Bowel Sounds - Extremities Exam Additional comments: 1+ LE edema Assessment and Plan (1) Cirrhosis Status: Acute (2) Ovarian mass, right Status: Acute (3) New onset atrial fibrillation Status: Acute - Assessment and Plan (Free Text) Assessment: 1) Persistent Atrial Fibrillation with suboptimal heart rate control. 2) Agitation and mental status changes work up in progress. 3) Ovarian mast is highly suspicious for malignancy. 4) Hx of ascites 5) Probable alcoholic liver disease. Plan: At this time her metroprolol dose will be increased for better heart rate control. IV Heparin will be continued for now. Conservative management regarding her atrial fibrillation. Will continue to follow along and make further recommendations.
--- NOTE | 2017-06-12 12:11 | CP.PCM.PN ---
Subjective - Date & Time of Evaluation Date of Evaluation: 06/01/17 Time of Evaluation: 08:58 - Subjective Subjective: Patient is lying in bed on Telemetry period, she is in risk restraints. Patient has been sedated and was markedly agitated overnight. Objective - Vital Signs/Intake and Output Vital Signs (last 24 hours): Temp Pulse Resp BP Pulse Ox 73.0 F L 176 H 46 H 71/43 L 92 L 06/06/17 22:56 06/06/17 22:50 06/06/17 22:50 06/06/17 22:31 06/06/17 22:53 - Medications Medications: Acyclovir Lorazepam IB Heparin Metoprolol 50 mg BID Pepcid 20 mg daily Zosyn - Labs Labs: 06/06/17 06:50 06/06/17 06:50 PT 13.0 Seconds (9.9-11.8) H 06/02/17 05:30 INR 1.20 (0.93-1.08) H 06/02/17 05:30 APTT 39.7 Seconds (23.7-30.8) H 06/05/17 04:00 - Constitutional Appears: Other (Middle aged women who appears sedated and depressed at the present time. Afebrile.) - Neck Exam Additional comments: No JVD - Respiratory Exam Additional comments: Few scattered rhonchi heard. - Cardiovascular Exam Additional comments: Rhythm is irregularly irregular rhythm with no pathologic murmurs or gallops. - GI/Abdominal Exam GI & Abdominal Exam: Soft. absent: Tenderness Additional comments: protuberant, bowel sounds present - Back Exam Additional comments: 1+ leg edema Assessment and Plan (1) Cirrhosis Status: Acute (2) Ovarian mass, right Status: Acute (3) New onset atrial fibrillation Status: Acute - Assessment and Plan (Free Text) Assessment: Diagnostic Data: White Count: 8.2 Hemoglobin: 9.6 Hematocrit: 29.4 Platelet Count: 118,000 PTT: 72 Impression: 1) Persistent Atrial Fibrillation with suboptimal heart rate control. 2) Agitation and mental status changes work up in progress. 3) Ovarian mass highly suspicious for malignancy. 4) History of ascites 5) Probable alcoholic liver disease. Plan: At this time her metoprolol dose will be increased for better heart rate control. IB Heparin will be continued for now. Conservative management regarding her atrial fibrillation is planned. We will continue following along and make recommendations as appropriate.
--- NOTE | 2017-06-12 13:15 | CP.PCM.PN ---
Subjective - Date & Time of Evaluation Date of Evaluation: 06/02/17 Time of Evaluation: 10:02 - Subjective Subjective: Pt is seen lying in bed in a CCU. She is currently in risk restraints. She remains restless and agitated, she is disoriented. She underwent a spinal tap yesterday, results are currently pending. Objective - Vital Signs/Intake and Output Vital Signs (last 24 hours): Temp Pulse Resp BP Pulse Ox 73.0 F L 176 H 46 H 71/43 L 92 L 06/06/17 22:56 06/06/17 22:50 06/06/17 22:50 06/06/17 22:31 06/06/17 22:53 - Medications Medications: Intravenous Diltiazem Intravenous Heparin Metroprolol 100 mg BID Pepcid 20 mg BID Precedex Protonix 40 mg daily Vancomycin - Labs Labs: 06/06/17 06:50 06/06/17 06:50 PT 13.0 Seconds (9.9-11.8) H 06/02/17 05:30 INR 1.20 (0.93-1.08) H 06/02/17 05:30 APTT 39.7 Seconds (23.7-30.8) H 06/05/17 04:00 - Constitutional Appears: Other (Middle aged women who appears disabled and confused. Afebrile) - Respiratory Exam Respiratory Exam: Rhonchi (B/L) - Cardiovascular Exam Cardiovascular Exam: absent: JVD Additional comments: PMI diplaced laterally, irregularly irregular rhythm - Extremities Exam Extremities Exam: absent: Pedal Edema - Additional Findings Additional findings: DIAGNOSED DATA: negative Potassium: 3.4 and has been replaced BUN: 14 Creatinine: 0.9 White Count: 10.5 Hemoglobin: 12 Hematocrit: 36.3 Platelet Count: 148,000 PT: 13.0 PTT: 33.6 pCO2: 7.4 pO2: 65 Assessment and Plan (1) Cirrhosis Status: Acute (2) Ovarian mass, right Status: Acute (3) New onset atrial fibrillation Status: Acute - Assessment and Plan (Free Text) Assessment: 1) Atrial fibrillation was rapid in ventricular response, current heart rate appears to be physiologic for her level of agitation. 2) AMS, work up in progress. 3) Ovarian mass is probable, malignancy Plan: Her current cardiac medications will continue at this time. Continue support of care advised. If her rate becomes excessively rapid, Digoxin can be added for extra support. We will follow up as needed.
== END 2017-06-06 23:05 | disposition hospice, inpatient (51) | DRG 754 ==
LOC: ED 15:54 → ERH 17:46 → 2RNO 23:15 → CCU 06-01 13:05
PROVIDERS: ADMIT Internal Medicine; ATTEND Internal Medicine
PROC: 009U3ZX Drainage of Spinal Canal, Percutaneous Approach, Diagnostic (ICD-10-PCS; principal; 2017-06-01)
PROC: 3E0F7GC Introduction of Other Therapeutic Substance into Respiratory Tract, Via Natural or Artificial Opening (ICD-10-PCS; 2017-06-05)
PROC: 5A09357 Assistance with Respiratory Ventilation, Less than 24 Consecutive Hours, Continuous Positive Airway Pressure (ICD-10-PCS; 2017-06-06)
DX: C56.1 Malignant neoplasm of right ovary (principal); G92 Toxic encephalopathy; R65.20 Severe sepsis without septic shock; J18.9 Pneumonia, unspecified organism; R64 Cachexia; A41.9 Sepsis, unspecified organism; K70.31 Alcoholic cirrhosis of liver with ascites; I48.91 Unspecified atrial fibrillation; E87.1 Hypo-osmolality and hyponatremia; F10.20 Alcohol dependence, uncomplicated; I10 Essential (primary) hypertension; E87.6 Hypokalemia; K59.00 Constipation, unspecified; R63.4 Abnormal weight loss; N20.0 Calculus of kidney; I08.1 Rheumatic disorders of both mitral and tricuspid valves; F17.210 Nicotine dependence, cigarettes, uncomplicated; Z66 Do not resuscitate; Z51.5 Encounter for palliative care; Z78.1 Physical restraint status

== ENCOUNTER 2017-06-06 23:05 | Inpatient (IN) | payer OTHER ==
[2017-06-07] MEDS: Morphine PCA 1 mg/ml (25ml) 25 ML IV PRN ×2 (03:39→15:37)
[2017-06-07 07:15] VITALS: RESP 28; BMI 28.8
[2017-06-07 07:31] VITALS: PULSE 109
--- NOTE | 2017-06-07 08:13 | CP.PCM.HP ---
History of Present Illness - History of Present Illness History of Present Illness: Pt not responsive. On Morphine RESTAURANT MGR. She is hospice. Present on Admission - Present on Admission Any Indicators Present on Admission: No Review of Systems - Review of Systems Systems not reviewed;Unavailable: Acuity of Condition (not responsive), Unstable Vital Signs, Altered Mental Status Past Patient History - Infectious Disease Hx of Infectious Diseases: None - Past Medical History & Family History Past Medical History?: Yes - Past Social History Smoking Status: Light Smoker < 10 Cigarettes Daily - CARDIAC Hx Hypertension: Yes - PULMONARY Hx Respiratory Disorders: No - NEUROLOGICAL Hx Alzheimer's Disease: Yes (early stages) - HEENT Hx HEENT Problems: No - RENAL Hx Chronic Kidney Disease: No - ENDOCRINE/METABOLIC Hx Endocrine Disorders: No Other/Comment: Low blood sugar - HEMATOLOGICAL/ONCOLOGICAL Hx Blood Disorders: No - INTEGUMENTARY Hx Dermatological Problems: No - MUSCULOSKELETAL/RHEUMATOLOGICAL Hx Falls: No Hx Unsteady Gait: Yes (uses cane at home) - GASTROINTESTINAL Other/Comment: diarrhea - GENITOURINARY/GYNECOLOGICAL Hx Genitourinary Disorders: No - PSYCHIATRIC Hx Substance Use: No Meds Allergies/Adverse Reactions: Allergies Allergy/AdvReac Type Severity Reaction Status Date / Time No Known Allergies Allergy Unverified 05/27/17 16:33 Physical Exam - Constitutional Appears: No Acute Distress, Older Than Stated Age, Cachectic, Chronically Ill - Head Exam Head Exam: NORMOCEPHALIC - ENT Exam ENT Exam: Mucous Membranes Moist - Neck Exam Neck exam: Positive for: Normal Inspection - Respiratory Exam Respiratory Exam: Clear to Auscultation Bilateral - Cardiovascular Exam Cardiovascular Exam: Tachycardia, REGULAR RHYTHM, RRR, +S1, +S2 - Neurological Exam Neurological exam: Altered Results - Vital Signs Recent Vital Signs: Last Vital Signs Temp Pulse 109 H 06/07/17 07:28 Resp 28 H 06/07/17 07:04 BP Pulse Ox Assessment & Plan - Assessment and Plan (Free Text) Assessment: Ovarian Mass Ascites A fib Delerium Hypernatremia Plan: RESTAURANT MGR pump with Morphine. DNR/DNI Comfortable. Called daughter to give update. - Date & Time Date: 06/07/17 Time: 08:15
--- NOTE | 2017-06-07 10:57 | CP.PCM.PN ---
Subjective - Date & Time of Evaluation Date of Evaluation: 06/07/17 Time of Evaluation: 09:00 - Subjective Subjective: Unresponsive to noxious stimuli,extremities mottled Objective - Vital Signs/Intake and Output Vital Signs (last 24 hours): Temp Pulse Resp BP Pulse Ox 109 H 28 H 06/07/17 07:28 06/07/17 07:04 Intake and Output: 06/07/17 06/07/17 06:59 18:59 Output Total 40 Balance -40 - Medications Medications: Current Medications Acetaminophen (Tylenol 650 Mg Supp) 650 mg RC Q4H PRN PRN Reason: Fever >100.4 F Morphine Sulfate (Morphine Babysitter 1 Mg/Ml) 25 mls @ 2 mls/hr IV PRN PRN; Protocol ; 2 MG/HR PRN Reason: MANAGER GROCERY PER MD ORDER Last Admin: 06/07/17 03:39 Dose: 2 mg/hr, 2 mls/hr Lorazepam (Ativan) 1 mg IVP Q6H PRN; Protocol PRN Reason: Anxiety - Constitutional Appears: No Acute Distress, Chronically Ill - Eye Exam Eye Exam: Normal appearance, PERRL - ENT Exam ENT Exam: Mucous Membranes Moist - Respiratory Exam Respiratory Exam: Decreased Breath Sounds, NORMAL BREATHING PATTERN - Cardiovascular Exam Cardiovascular Exam: REGULAR RHYTHM, +S1, +S2 - GI/Abdominal Exam GI & Abdominal Exam: Distended, Firm, Diminished Bowel Sounds - Extremities Exam Additional comments: mottled, cold - Skin Skin Exam: Dry, Pallor Assessment and Plan - Assessment and Plan (Free Text) Assessment: 61 year old women with ovarian mass,ascites,severe sepsis, respiratory failure, delirium. Patient under services of [facility] for symptom management of agitation, dyspnea. Patients daughter at bedside. Signs of impending explained.End of life counseling given. Plan: Morphine continuos IV 2mg/hr for dyspnea/pain. Ativan 1 mg IV every 6 hours for agitation. Scopolamine transdermal patch. Gentle suctioning as needed Tylenol 650 RC for fever over 100 F
[2017-06-07] MEDS: Scopolamine 1.5 mg/24 hr Patch TD SCH ×2 (15:37→15:40)
[2017-06-08] MEDS: Morphine PCA 1 mg/ml (25ml) 25 ML IV PRN (03:16)
--- NOTE | 2017-06-08 06:55 | CP.PCM.PRO ---
Pronouncement of Note - Clinical Findings Physical Exam: No Response Verbal/Painful Stimuli, Absent Peripheral Pulses{ Carotid & Femoral}, Absent Heart & Breath Sounds, No Pupillary Light Reflex, No Corneal Reflex, Pupils Fixed & Dilated, Absence of Vital Signs - Pronouncement Time Time of Pronouncement of : 06:40 - Notifications Pronouncement Notifications: Family Notified (Nurse will.), Atending Notified ( Nurse will.) Technical Recruiter Notified: No - Autopsy Autopsy Requested: No - [place] [id number]
--- NOTE | 2017-06-08 08:29 | CP.PCM.DIS ---
Provider - Provider Date of Admission: 06/06/17 23:05 Attending physician: Jose oFurnier MD Primary care physician: Angelina Rosen MD Time Spent in preparation of Discharge (in minutes): 0 Discharge Exam - Head Exam Head Exam: NORMOCEPHALIC Discharge Plan - Follow Up Plan Condition: GOOD Disposition: WITH WITHOUT AUTOPSY Additional Instructions: Pt . Ovarian Mass Ascites A fib Delerium Hypernatremia Cirrhosis Plan: COAL HANDLING SUPERVISOR pump with Morphine. DNR/DNI Spoke to daughter to inform pt and also left message for Dr Rosen. Referrals: Angelina Rosen MD [Primary Care Provider] -
== END 2017-06-08 06:40 | DRG 871 ==
LOC: 5RSO 23:05
PROVIDERS: ADMIT Internal Medicine Nephrology; ATTEND Internal Medicine Nephrology
DX: A41.9 Sepsis, unspecified organism (principal); J96.90 Respiratory failure, unspecified, unspecified whether with hypoxia or hypercapnia; E87.0 Hyperosmolality and hypernatremia; R18.8 Other ascites; I48.91 Unspecified atrial fibrillation; G30.0 Alzheimer's disease with early onset; F05 Delirium due to known physiological condition; N83.9 Noninflammatory disorder of ovary, fallopian tube and broad ligament, unspecified; R65.20 Severe sepsis without septic shock; R41.0 Disorientation, unspecified; F02.80 Dementia in other diseases classified elsewhere, unspecified severity, without behavioral disturbance, psychotic disturbance, mood disturbance, and anxiety; I10 Essential (primary) hypertension; Z51.5 Encounter for palliative care; E16.2 Hypoglycemia, unspecified; R19.7 Diarrhea, unspecified; Z66 Do not resuscitate; K74.60 Unspecified cirrhosis of liver; R45.1 Restlessness and agitation